=== PATIENT | female | born 1980 | race Caucasian/White ===

== ENCOUNTER 2024-05-21 13:19 | Outpatient (POV) | payer BC, SELFPAY ==
[2024-05-21 14:23] VITALS: BP 116/81; PULSE 77; RESP 18; O2SAT 99; BMI 31.7
--- NOTE | 2024-05-21 17:12 | A.OFFVIS_ITS ---
HPI Data of Consult Patient: new to practice Consult date: 05/21/24 Requesting Physician: Kitty Franks APRN Primary Care Provider: Vincent Ann MD Consult Narrative Reason for consult: Low back pain, bilateral hip pain History of present illness: Ms. Gomez is a 43 year old female who presents today as a new patient. She is a referral from [facility]. Today she rates her pain a 7 out of 10. Patient states she has pain throughout her low back and bilateral hips. Patient states that this is been going on progressively for at least 3 to 4 years on her chronic low back pain and that her hip pain has just been the last 8 to 9 months. Patient denies any specific trauma or injury that initially led to her symptoms. Patient states that she has been to multiple providers for this pain and did end up doing epidurals and lumbar blocks in the past with minimal relief. Patient states that she ended up getting sent for a neurosurgeon consult after the lumbar medial branch block did not provide significant relief. She states that 1 provider thought that she would do well with shaving down some bone in her lumbar spine whereas they ended up sending her for a second opinion with a different neurosurgeon who said that she was not a surgical candidate. Patient states that both of these providers were within the same hospital group and that she really felt like it was in her best interest to not proceed forward with those providers. Patient does state her pain is a constant aching, throbbing sensation with some burning into her hips. She does state the pain interferes with her ability perform activities of daily living such as cooking and cleaning. Patient does state that she saw 1 other provider that did do some hip injections along her bursa's and that that helped for a couple of days. Patient does have a history of lupus and fibromyalgia. She has tried oral medications, heat and ice, topicals along with continued chiropractor therapy with no improvement. Patient has also completed physical therapy in the past with no additional relief. Patient is interested in any help we may be able to provide. Patient has been tried on [place], Percocet, Flexeril in the past with minimal relief. Her Gabriel has been reviewed and is appropriate. CC: Kitty Franks APRN [facility] Disclaimer: The information contained in this section may have been updated after the patient was seen, as this information can be updated by other users. Medical History (Updated 10/14/24 @ 17:17 by Kitty Franks APRN) Encounter for adjustment of gastric lap band Depression Anxiety HLD (hyperlipidemia) Chronic urinary tract infection Iron deficiency HTN (hypertension) Asthma COPD (chronic obstructive pulmonary disease) Migraines Fibromyalgia Surgical History (Updated 05/21/24 @ 14:51 by Melinda Lyles, RN) H/O: hysterectomy H/O dilation and curettage H/O removal of cyst Previous section Family History (Updated 05/21/24 @ 14:50 by Melinda Lyles, RN) Other Breast cancer Cardiovascular disease Hypertension Lung cancer Lupus Osteoporosis Social History (Updated 05/21/24 @ 14:52 by Melinda Lyles, MOON) Smoking Status: Current every day smoker alcohol intake: never substance use type: denies use current occupational status: employed Travel in the last 8 weeks: None Review of Systems Review of Systems Review of systems:: pertinent systems reviewed and negative unless documented below Review of systems (narrative): Review of Systems: General: No recent weight changes, no fever, no sleep disturbances Respiratory: No cough, no shortness of air, no recurring pulmonary infections Cardiovascular/peripheral vascular: No chest pain, no palpitations, no edema, no shortness of breath Gastrointestinal: No new onset incontinence, normal bowel movements reported Genitourinary: No new onset incontinence Musculoskeletal: Low back pain, bilateral hip pain Psychiatric: [Normal mood/affect] Neurological: [Denies weakness in extremities], [denies balance issues] Meds Home Medications and Allergies Home Medications ?Medication ?Instructions ?Recorded ?Confirmed ?Type amitriptyline 10 mg tablet 10 mg PO DAILY 10/26/17 05/21/24 History biotin 1 mg tablet 1 mg PO DAILY 10/26/17 05/21/24 History cyclobenzaprine 5 mg tablet 5 mg PO BID 10/26/17 05/21/24 History docusate sodium 100 mg capsule 100 mg PO QHS 10/26/17 05/21/24 History (Colace) hydrochlorothiazide 12.5 mg capsule 12.5 mg PO QAM 10/26/17 05/21/24 History naproxen 500 mg tablet 500 mg PO Q12H PRN Pain 10/26/17 05/21/24 History prenat.vits,tyrone,sen-[id number] 1 tab PO QHS 10/26/17 05/21/24 History ranitidine HCl 150 mg tablet 150 mg PO BID PRN GERD 10/26/17 05/21/24 History (Zantac) sumatriptan succinate 50 mg tablet 50 mg PO Q2H PRN MIGRAINES 10/26/17 05/21/24 History (Imitrex) New Prescriptions to Start Prescriptions: Allergies Allergy/AdvReac Type Severity Reaction Status Date / Time No Known Allergies Allergy Verified 10/26/17 10:39 Objective Vital signs: Pulse Resp BP Pulse Ox O2 Del Method 77 18 116/81 99 Room Air 05/21/24 14:23 05/21/24 14:23 05/21/24 14:23 05/21/24 14:23 05/21/24 14:23 Narrative: Physical Exam: General: Alert and oriented x3, no acute distress, pleasant and cooperative Lungs: Respirations even and unlabored, symmetrical chest expansion Eyes: PERRL Musculoskeletal: Flexion and extension of lumbar [spine] somewhat guarded secondary to pain, [antalgic gait noted] point tenderness along bilateral SIs with positive bilateral Bharti's, Damián's, Gaenslen's, compression and distraction exam Neurological: Speech clear, no gross sensory deficit Assessment and Plan *Assessment and plan (1) Bilateral sacroiliitis: Status: Acute Category: Medical Code(s): M46.1 - Sacroiliitis, not elsewhere classified (2) Degenerative disc disease, lumbar: Status: Acute Category: Medical Code(s): M51.369 - Other intervertebral disc degeneration, lumbar region without mention of lumbar back pain or lower extremity pain (3) Bilateral hip pain: Status: Acute Category: Medical Code(s): M25.551 - Pain in right hip; M25.552 - Pain in left hip Plan Patient is experiencing significant pain in her low back and bilateral hips with limited range of motion and point tenderness along her bilateral SIs. Patient did also have a positive bilateral Bharti's, Damián's, Gaenslen's, compression and distraction exam. I did discuss with the patient that I do believe she would benefit from bilateral SI injections. Risk and benefits were discussed with the patient and she would like to proceed forward with this plan of care. Patient has tried and failed conservative therapy including continued at home stretching and exercise for longer than 12 weeks along with chiropractor therapy and physical therapy. Patient was also counseled due to her chronic back pain and degenerative disc that she may also benefit from a intrathecal pain pump trial in the future. Risk and benefits and educational handouts were given at today's visit. She would like to proceed forward with this option as well. I will order the patient a psychological evaluation and if she is deemed an appropriate candidate we will proceed forward with the trial at a later date. Patient will be scheduled for bilateral SI injections under fluoroscopy. Patient has been instructed to contact the clinic with any concerns before the next appointment. Dr. Robertson has reviewed this note and agrees with this plan of care. This note was dictated using voice recognition software and make contain errors or omissions. All injections are used with Lidocaine or Bupivacaine and Depo Medrol.
== END 2024-05-21 23:59 | disposition home or self-care (01) ==
LOC: SC.PAIN 13:24
PROVIDERS: PCP Family Medicine; Visit Provider Nurse Practitioner Family
DX: M46.1 Sacroiliitis, not elsewhere classified (principal); M51.369 Other intervertebral disc degeneration, lumbar region without mention of lumbar back pain or lower extremity pain; M25.551 Pain in right hip; M25.552 Pain in left hip; Z73.89 Other problems related to life management difficulty; F17.210 Nicotine dependence, cigarettes, uncomplicated
CPT/HCPCS: 99202; G0463

== ENCOUNTER 2024-06-14 15:01 | Outpatient (POV) | payer BC, SELFPAY ==
--- NOTE | 2024-06-14 15:27 | A.OFFVIS_ITS ---
[facility] Disclaimer: The information contained in this section may have been updated after the patient was seen, as this information can be updated by other users. Medical History (Updated 06/14/24 @ 15:29 by Kitty Franks APRN) Encounter for adjustment of gastric lap band Depression Anxiety HLD (hyperlipidemia) Chronic urinary tract infection Iron deficiency HTN (hypertension) Asthma COPD (chronic obstructive pulmonary disease) Migraines Fibromyalgia Surgical History (Updated 05/21/24 @ 14:51 by Melinda Lyles RN) H/O: hysterectomy H/O dilation and curettage H/O removal of cyst Previous section Family History (Updated 05/21/24 @ 14:50 by Melinda Lyles RN) Other Breast cancer Cardiovascular disease Hypertension Lung cancer Lupus Osteoporosis Social History (Updated 05/21/24 @ 14:52 by Melinda Lyles RN) Smoking Status: Current every day smoker alcohol intake: never substance use type: denies use current occupational status: employed Travel in the last 8 weeks: None PM Subjective & Objective Subjective Subjective:: patient is a pleasant 43-year-old female who presents today for follow-up of psychological evaluation. Today she rates her pain a 8 out of 10. She denies any new trauma or injury. Patient does state that she did review over the pump information and would like to proceed forward with this plan of care. Patient did complete her psychological evaluation. Patient has chronic pain throughout her back as well as her hips. Patient states this has been going on for years and progressively worsening. Patient has tried and failed conservative therapy including continued at home stretching exercise for longer than 12 weeks along with continued chiropractor therapy. Patient has been seen by neurosurgery already. Her Gabriel has been reviewed and is appropriate. Review of Systems: General: No recent weight changes, no fever, no sleep disturbances Respiratory: No cough, no shortness of air, no recurring pulmonary infections Cardiovascular/peripheral vascular: No chest pain, no palpitations, no edema, no shortness of breath Gastrointestinal: No new onset incontinence, normal bowel movements reported Genitourinary: No new onset incontinence Musculoskeletal: Chronic back pain, bilateral hip pain Psychiatric: [Normal mood/affect] Neurological: [Denies weakness in extremities], [denies balance issues] Pain at rest (0-10 scale): 8 Objective Objective:: Physical Exam: General: Alert and oriented x3, no acute distress, pleasant and cooperative Lungs: Respirations even and unlabored, symmetrical chest expansion Eyes: PERRL Musculoskeletal: Flexion and extension of lumbar [spine] somewhat guarded secondary to pain, [antalgic gait noted] Neurological: Speech clear, no gross sensory deficit Has patient had previous pain injection?: No Conservative treatment options previously tried: Home exercise plan Length of treatment: Longer than 12 weeks Meds Home Medications and Allergies Home Medications ?Medication ?Instructions ?Recorded ?Confirmed ?Type amitriptyline 10 mg tablet 10 mg PO DAILY 10/26/17 05/21/24 History biotin 1 mg tablet 1 mg PO DAILY 10/26/17 05/21/24 History cyclobenzaprine 5 mg tablet 5 mg PO BID 10/26/17 05/21/24 History docusate sodium 100 mg capsule 100 mg PO QHS 10/26/17 05/21/24 History (Colace) hydrochlorothiazide 12.5 mg capsule 12.5 mg PO QAM 10/26/17 05/21/24 History naproxen 500 mg tablet 500 mg PO Q12H PRN Pain 10/26/17 05/21/24 History prenat.vits,tyrone,[id number] 1 tab PO QHS 10/26/17 05/21/24 History ranitidine HCl 150 mg tablet 150 mg PO BID PRN GERD 10/26/17 05/21/24 History (Zantac) sumatriptan succinate 50 mg tablet 50 mg PO Q2H PRN MIGRAINES 10/26/17 05/21/24 History (Imitrex) New Prescriptions to Start Prescriptions: Allergies Allergy/AdvReac Type Severity Reaction Status Date / Time No Known Allergies Allergy Verified 10/26/17 10:39 Assessment and Plan *Assessment and plan (1) Degenerative disc disease, lumbar: Status: Acute Category: Medical Code(s): M51.369 - Other intervertebral disc degeneration, lumbar region without mention of lumbar back pain or lower extremity pain (2) Bilateral hip pain: Status: Acute Category: Medical Code(s): M25.551 - Pain in right hip; M25.552 - Pain in left hip (3) Chronic pain syndrome: Status: Acute Category: Medical Code(s): G89.4 - Chronic pain syndrome Plan Patient was reviewed over her psychological evaluation and was deemed an appropriate candidate for the intrathecal pain pump trial. Risk and benefits of this procedure were explained to the patient and she would like to proceed forward with this plan of care. Patient has tried and failed conservative therapy including multiple medications as well as oral opioids, heat and ice, topicals, chiropractor therapy and continued at home stretching and exercise for longer than 12 weeks. Patient will be submitted for a intrathecal pain pump trial under fluoroscopy. If she does have significant improvement we will plan on doing a intrathecal pain pump implant at a later date. Patient has been instructed to contact the clinic with any concerns before the next appointment. Dr. Robertson has reviewed this note and agrees with this plan of care. This note was dictated using voice recognition software and make contain errors or omissions. All injections are used with Lidocaine or Bupivacaine and Depo Medrol.
[2024-06-14 15:38] VITALS: BP 138/85; PULSE 86; RESP 18; O2SAT 100; BMI 33.6
== END 2024-06-14 23:59 | disposition home or self-care (01) ==
LOC: SC.PAIN 15:01
PROVIDERS: PCP Family Medicine; Visit Provider Nurse Practitioner Family
DX: M51.369 Other intervertebral disc degeneration, lumbar region without mention of lumbar back pain or lower extremity pain (principal); M25.551 Pain in right hip; M25.552 Pain in left hip; G89.4 Chronic pain syndrome; F17.210 Nicotine dependence, cigarettes, uncomplicated
CPT/HCPCS: 99212; G0463

== ENCOUNTER 2024-06-26 14:22 | Day surgery (SDC) | payer BC, SELFPAY ==
--- OUTSIDE RECORDS SUMMARY | 2024-06-26 14:24 | XMS_ITS | Data Portability ---
Author Organization [place] - [facility], Main Office Address [address] [address] Care Team Providers Care Digital Operations Analyst Name Role Phone BRIDGET ROUSE Primary Care Provider Assessment Encounter Date Assessment Date Assessment LastModified by Organization Details LastModified Time 11/10/2022 11/10/2022 This visit was completed via video. Patient has provided consent per state regulations. Instructed to call for any questions or concerns. Seek immediate care if with worsening or persistent symptoms. [email or web address] Not available 11/10/2022 21:12:39 12/03/2022 12/03/2022 This visit was completed via video. All issues as below were discussed and addressed but no physical exam/vitals were performed. Patient has provided consent per state regulations. Patient has also verbally consented to this visit and understand the limitations of [facility]. Medication instructions, precautions, and side effects were reviewed in detail with patient/guardian today Instructed to seek immediate care if with worsening or persistent symptoms Instructed to go directly to ED if develops chest pain, sob, diaphoresis, palpitations, uncontrollable KUHN, mental status changes, dizziness, Sz activity, confusion, gait instability, ext weakness, slurred speech or any other concerning signs or symptoms. Not available 12/03/2022 09:28:39 Plan of Treatment Reminders Order Date Submit Date Provider Last Modified By Organization Details Last Modified Time Details Appointments None recorded. Lab Hepatitis C IgG Ab, qual, serum 2022 023 LETART [facility] ([place]), [address] [facility], [place], [address], 17:05:30 HIV 1 + 2, meaningful use set 2022 023 NATASHA [facility] ([place]), [address] [facility], [place], [address], 3 17:05:29 unlisted lab - biometrics- [id number] 2022 023 [facility] [address] [facility], [place], [address], 3 17:05:26 CMP, serum or plasma 2022 023 NATASHA [facility] ([place]), [address] [facility], [place], [address], 3 17:05:25 CBC w/ auto diff 2022 023 [facility] [address] [facility], [place], [address], 3 17:05:24 TSH, ultra-sensi tive, serum 2022 023 [facility]HA [facility] [address] [facility], [place], [address], 3 17:05:28 HbA1c (hemoglobin A1c), blood 2022 023 [facility]ART [facility] [address] [facility], [place], [address], 3 17:05:27 lipid panel, serum 2022 023 NATASHA [facility] [address] [facility], [place], [address], 3 17:05:25 vitamin B12 + folate, serum or blood 2022 023 NATASHA [facility] ([place]), [address] [facility], [place], [address], 3 17:05:26 thiamine, QN, blood [address] [facility] ([place]), [address] [place], [address], 3 17:05:30 iron, serum 2022 023 [facility]), [address] [place], [address], 3 17:05:30 vitamin E, serum 2022 023 [facility]), [address] [place], [address], 3 17:05:27 copper, serum or plasma 2022 023 [facility]), [address] [place], [address], 3 17:05:31 zinc, serum or plasma 2022 023 [facility]), [address] [place], [address], 3 17:05:31 vitamin A (retinol), serum 2022 023 [facility]), [address] [place], [address], 3 17:05:28 vitamin D, 25-hydroxy, total, serum 2022 023 [facility]), [address] [place], [address], 3 17:05:29 lipid panel, serum [address]), [address] [place], [address], 3 18:16:13 potassium, serum or plasma 2022 023 [place] [address] [facility] [facility], [place], [address], 3 18:16:13 Referral care management referral 2022 023 [facility], [address] [facility] [address], [place], [address], 3 18:11:03 Procedures None recorded. Surgeries None recorded. Imaging None recorded. Medication Orders omeprazole 40 mg capsule,del ayed release 2022 023 [facility], [address] [place] [address], [address], 3 15:01:42 montelukast 10 mg tablet [address] [facility], [address] [place] [address], [address], 3 16:33:11 valacyclovi r 1 gram tablet 2022 023 [facility], [address] [place] [address], [address], 3 14:31:17 hydrochloro thiazide 12.5 mg capsule 2022 023 [facility], [address] [place] [address], [address], 3 15:01:46 cholecalcif jason (vitamin D3) 50 mcg (2,000 unit) tablet 2022 023 [facility], [address] [place] [address], [address], 3 09:32:20 Patient TargetsNo targets recorded. Patient Instructions Encounter Date Encounter Id Patient Instructions Last Modified By Organization Details Last Modified Time 10/06/2022 [id number] Please follow up upon completion of labs You can call us at [phone] for any questions or concerns. You can also send us a message via the [employer] portal for non-urgent issues. Not available 10/06/2022 16:36:06 11/10/2022 [id number] To reach us, you can call us at [phone] or [phone]. You can also send us a message via the portal for non-urgent concerns. If your symptoms get worse, please seek urgent care. Follow-up as scheduled or sooner if needed. [email or web address] Not available 11/10/2022 21:19:00 Reason for Referral Referring Physician: Emily Cody, Family Medicine, Encounter Date: 11/10/2022 Results Created Date Observation Date Name Description Value Unit Range Abnormal Flag Note LastModifiedBy Organization Detail LastModifiedTime 11/30/19 23 11/29/2022 CBC WITH DIFFE RENTI AL/PL ATELE T WBC 5.0 x10e3 /uL 3.4-10 .8 Not Available [facility] ([facility]) [address] [place], [address], 12/04/2022 17:05:24 11/30/19 23 11/29/2022 CBC WITH DIFFE RENTI AL/PL ATELE T RBC 5.07 x10e6 /uL 3.77-5 .28 Not Available [facility] ([facility]) [address] [place], [address], 12/04/2022 17:05:24 11/30/19 23 11/29/2022 CBC WITH DIFFE RENTI AL/PL ATELE T hemoglobin 12.8 g/dL 11.1-1 5.9 Not Available [facility] ([facility]) [address] [place], [address], 12/04/2022 17:05:24 11/30/19 23 11/29/2022 CBC WITH DIFFE RENTI AL/PL ATELE T hematocrit 39.8 % 34.0-4 6.6 Not Available [facility] ([facility]) [address] [place], [address], 12/04/2022 17:05:24 11/30/19 23 11/29/2022 CBC WITH DIFFE RENTI AL/PL ATELE T MCV 79 fL 79-97 Not Available [facility] ([facility]) [address] [facility], [place], [address], 12/04/2022 17:05:24 11/30/19 23 11/29/2022 CBC WITH DIFFE RENTI AL/PL ATELE T MCH 25.2 pg 26.6-3 3.0 below low normal Not Available [facility] ([facility]) [address] [facility], [place], [address], 12/04/2022 17:05:24 11/30/19 23 11/29/2022 CBC WITH DIFFE RENTI AL/PL ATELE T MCHC 32.2 g/dL 31.5-3 5.7 Not Available [facility] ([facility]) [address] [facility], [place], [address], 12/04/2022 17:05:24 11/30/19 23 11/29/2022 CBC WITH DIFFE RENTI AL/PL ATELE T RDW 13.6 % 11.7-1 5.4 Not Available [facility] ([facility]) [address] [facility], [place], [address], 12/04/2022 17:05:24 11/30/19 23 11/29/2022 CBC WITH DIFFE RENTI AL/PL ATELE T platelets 228 x10e3 /uL 150-45 0 Not Available [facility] ([facility]) [address] [facility], [place], [address], 12/04/2022 17:05:24 11/30/19 23 11/29/2022 CBC WITH DIFFE RENTI AL/PL ATELE T neutrophils 65 % not estab. Not Available [facility] ([facility]) [address] [place], [address], 12/04/2022 17:05:24 11/30/19 23 11/29/2022 CBC WITH DIFFE RENTI AL/PL ATELE T lymphs 23 % not estab. Not Available [facility] ([facility]) [address] [facility], [place], [address], 12/04/2022 17:05:24 11/30/19 23 11/29/2022 CBC WITH DIFFE RENTI AL/PL ATELE T monocytes 8 % not estab. Not Available [facility] ([facility]) [address] [facility], [place], [address], 12/04/2022 17:05:24 11/30/19 23 11/29/2022 CBC WITH DIFFE RENTI AL/PL ATELE T eos 3 % not estab. Not Available [facility] ([facility]) [address] [facility], [place], [address], 12/04/2022 17:05:24 11/30/19 23 11/29/2022 CBC WITH DIFFE RENTI AL/PL ATELE T basos 1 % not estab. Not Available [facility] ([facility]) [address] [facility], [place], [address], 12/04/2022 17:05:24 11/30/19 23 11/29/2022 CBC WITH DIFFE RENTI AL/PL ATELE T immature cells COOK NIGHT Not Available [facility] ([facility]) [address] [facility], [place], [address], 12/04/2022 17:05:24 11/30/19 23 11/29/2022 CBC WITH DIFFE RENTI AL/PL ATELE T neutrophils (absolute) 3.2 x10e3 /uL 1.4-7. 0 Not Available [facility] ([facility]) [address] [place], [address], 12/04/2022 17:05:24 11/30/19 23 11/29/2022 CBC WITH DIFFE RENTI AL/PL ATELE T lymphs (absolute) 1.2 x10e3 /uL 0.7-3. 1 Not Available [facility] ([facility]) [address] [facility], [place], [address], 12/04/2022 17:05:24 11/30/19 23 11/29/2022 CBC WITH DIFFE RENTI AL/PL ATELE T monocytes(ab solute) 0.4 x10e3 /uL 0.1-0. 9 Not Available [facility] ([facility]) [address] [facility], [place], [address], 12/04/2022 17:05:24 11/30/1911/29/2022 CBC WITH DIFFE RENTI AL/PL ATELE T eos (absolute) 0.2 x10e3 /uL 0.0-0. 4 Not Available [facility] ([facility]) [address] [facility], [place], [address], 12/04/2022 17:05:24 11/30/19 23 11/29/2022 CBC WITH DIFFE RENTI AL/PL ATELE T baso (absolute) 0.1 x10e3 /uL 0.0-0. 2 Not Available [facility] ([facility]) [address] [facility], [place], [address], 12/04/2022 17:05:24 11/30/19 23 11/29/2022 CBC WITH DIFFE RENTI AL/PL ATELE T immature granulocytes 0 % not estab. Not Available [facility] ([facility]) [address] [place], [address], 12/04/2022 17:05:24 11/30/1911/29/2022 CBC WITH DIFFE RENTI AL/PL ATELE T immature grans (abs) 0.0 x10e3 /uL 0.0-0. 1 Not Available [facility] ([facility]) [address] [place], [address], 12/04/2022 17:05:24 11/30/19 23 11/29/2022 CBC WITH DIFFE RENTI AL/PL ATELE T NRBC COOK NIGHT Not Available [facility] ([facility]) [address] [facility], [place], [address], 12/04/2022 17:05:24 11/30/19 23 11/29/2022 CBC WITH DIFFE RENTI AL/PL ATELE T hematology comments: COOK NIGHT Not Available [facility] ([facility]) [address] [facility], [place], [address], 12/04/2022 17:05:24 11/30/19 23 11/29/2022 COMP. METAB OLIC PANEL (14) calcium 9.8 mg/dL 8.7-10 .2 Not Available [facility] ([facility]) [address] [facility], [place], [address], 12/04/2022 17:05:25 11/30/19 23 11/30/2022 COMP. METAB OLIC PANEL (14) glucose 82 mg/dL 70-99 Not Available [facility] ([facility]) [address] [place], [address], 12/04/2022 17:05:25 11/30/19 23 11/30/2022 COMP. METAB OLIC PANEL (14) BUN 9 mg/dL 6-24 Not Available [facility] ([facility]) [address] [facility], [place], [address], 12/04/2022 17:05:25 11/30/19 23 11/30/2022 COMP. METAB OLIC PANEL (14) creatinine 0.80 mg/dL 0.57-1 .00 Not Available [facility] ([facility]) [address] [place], [address], 12/04/2022 17:05:25 11/30/19 23 11/30/2022 COMP. METAB OLIC PANEL (14) eGFR 95 mL/mi n/1.7 3 >59 Not Available [facility] ([facility]) [address], [place], [address], 12/04/2022 17:05:25 11/30/19 23 11/30/2022 COMP. METAB OLIC PANEL (14) BUN/creatini ne ratio 11 9-23 Not Available [facility] ([facility]) [address], [place], [address], 12/04/2022 17:05:25 11/30/19 23 11/30/2022 COMP. METAB OLIC PANEL (14) sodium 137 mmol/ L 134-14 4 Not Available [facility] ([facility]) [address] [place], [address], 12/04/2022 17:05:25 11/30/19 23 11/30/2022 COMP. METAB OLIC PANEL (14) potassium 3.0 mmol/ L 3.5-5. 2 below low normal Not Available [facility] ([facility]) [address], [place], [address], 12/04/2022 17:05:25 11/30/19 23 11/30/2022 COMP. METAB OLIC PANEL (14) chloride 95 mmol/ L 96-106 below low normal Not Available [facility] ([facility]) [address] [place], [address], 12/04/2022 17:05:25 11/30/19 23 11/30/2022 COMP. METAB OLIC PANEL (14) carbon dioxide, total 28 mmol/ L 20-29 Not Available [facility] ([facility]) [address] [place], [address], 12/04/2022 17:05:25 11/30/19 23 11/30/2022 COMP. METAB OLIC PANEL (14) protein, total 7.3 g/dL 6.0-8. 5 Not Available [facility] ([facility]) [address], [place], [address], 12/04/2022 17:05:25 11/30/19 23 11/30/2022 COMP. METAB OLIC PANEL (14) albumin 4.3 g/dL 3.8-4. 8 Not Available [facility] ([facility]) [address] [facility], [place], [address], 12/04/2022 17:05:25 11/30/19 23 11/30/2022 COMP. METAB OLIC PANEL (14) globulin, total 3.0 g/dL 1.5-4. 5 Not Available [facility] ([facility]) [address] [facility], [place], [address], 12/04/2022 17:05:25 11/30/19 23 11/30/2022 COMP. METAB OLIC PANEL (14) A/G ratio 1.4 1.2-2. 2 Not Available [facility] ([facility]) [address] [facility], [place], [address], 12/04/2022 17:05:25 11/30/19 23 11/30/2022 COMP. METAB OLIC PANEL (14) bilirubin, total 0.4 mg/dL 0.0-1. 2 Not Available [facility] ([facility]) [address] [facility], [place], [address], 12/04/2022 17:05:25 11/30/19 23 11/30/2022 COMP. METAB OLIC PANEL (14) alkaline phosphatase 68 IU/L 44-121 Not Available [facility] ([facility]) [address] [facility], [place], [address], 12/04/2022 17:05:25 11/30/19 23 11/30/2022 COMP. METAB OLIC PANEL (14) AST (SGOT) 17 IU/L 0-40 Not Available [facility] ([facility]) [address] [facility], [place], [address], 12/04/2022 17:05:25 11/30/19 23 11/30/2022 COMP. METAB OLIC PANEL (14) ALT (SGPT) 11 IU/L 0-32 Not Available [facility] ([facility]) [address] [facility], [place], [address], 12/04/2022 17:05:25 11/30/19 23 11/30/2022 LIPID PANEL W/ CHOL/ HDL RATIO cholesterol, total 305 mg/dL 100-19 9 above high normal Not Available [facility] ([facility]) [address] [place], [address], 12/04/2022 17:05:25 11/30/19 23 11/30/2022 LIPID PANEL W/ CHOL/ HDL RATIO triglyceride s 167 mg/dL 0-149 above high normal Not Available [facility] ([facility]) [address] [place], [address], 12/04/2022 17:05:25 11/30/19 23 11/30/2022 LIPID PANEL W/ CHOL/ HDL RATIO HDL cholesterol 48 mg/dL >39 Not Available [facility] ([facility]) [address] [place], [address], 12/04/2022 17:05:25 11/30/19 23 11/30/2022 LIPID PANEL W/ CHOL/ HDL RATIO VLDL cholesterol tyrone 32 mg/dL 5-40 Not Available [facility] ([facility]) [address] [place], [address], 12/04/2022 17:05:25 11/30/19 23 11/30/2022 LIPID PANEL W/ CHOL/ HDL RATIO LDL chol calc ([facility]) 225 mg/dL 0-99 above high normal Not Available [facility] ([facility]) [address] [place], [address], 12/04/2022 17:05:25 11/30/19 23 11/30/2022 LIPID PANEL W/ CHOL/ HDL RATIO comment: Commen t Possi ble Famil ial Hyper elbert stero lemia . FH shoul d be suspe cted when fasti ng LDL elbert stero l is above 189 mg/dL or non-H DL elbert stero l is above 219 mg/dL . A famil y histo ry of high elbert stero l and heart disea se in 1st degre e relat khadijah nila d be colle cted. J Clin Lipid ol 2011; 5:133 -140 Not Available [facility] ([facility]) [address] [facility], [place], [address], 12/04/2022 17:05:25 11/30/19 23 11/30/2022 LIPID PANEL W/ CHOL/ HDL RATIO T. chol/HDL ratio 6.4 ratio 0.0-4. 4 above high normal T. Chol/ HDL Ratio Men Women 1/2 Avg.R isk 3.4 3.3 Avg.R isk 5.0 4.4 2X Avg.R isk 9.6 7.1 3X Avg.R isk 23.4 11.0 Not Available [facility] ([facility]) [address] [facility], [place], [address], 12/04/2022 17:05:25 11/30/19 23 11/29/2022 BIOME TRICS patient height (in) 62.0 in Not Available [facility] ([facility]) [address] [place], [address], 12/04/2022 17:05:26 11/30/19 23 11/29/2022 BIOME TRICS patient weight (lbs) 193.8 lbs Not Available [facility] ([facility]) [address] [place], [address], 12/04/2022 17:05:26 11/30/19 23 11/29/2022 BIOME TRICS body mass index 35.4 Not Available [facility] ([facility]) [address] [place], [address], 12/04/2022 17:05:26 11/30/19 23 11/29/2022 BIOME TRICS waist circumferenc e (in) 40.0 in Not Available [facility] ([facility]) [address] [place], [address], 12/04/2022 17:05:26 11/30/19 23 11/29/2022 BIOME TRICS systolic blood pressure 123 mmHg Not Available [facility] ([facility]) [address] [place], [address], 12/04/2022 17:05:26 11/30/19 23 11/29/2022 BIOME TRICS diastolic blood pressure 78 mmHg Not Available [facility] ([facility]) [address] [place], [address], 12/04/2022 17:05:26 11/30/19 23 11/30/2022 VITAM IN B12 AND FOLAT E vitamin B12 618 pg/mL 232-12 45 Not Available [facility] ([facility]) [address] [place], [address], 12/04/2022 17:05:26 11/30/1911/30/2022 VITAM IN B12 AND FOLAT E folate (folic acid), serum 5.5 NG/mL >3.0 A serum folat e felix ntrat ion of less than 3.1 ng/mL is consi dered to repre sent clini tyrone defic iency . Not Available [facility] ([facility]) [address] [place], [address], 12/04/2022 17:05:26 11/30/1912/04/2022 VITAM IN E vitamin E(alpha tocopherol) 13.9 mg/L 7.0-25 .1 Not Available [facility] ([facility]) [address] [place], [address], 12/04/2022 17:05:27 11/30/19 23 12/04/2022 VITAM IN E vitamin E(gamma tocopherol) 3.4 mg/L 0.5-5. 5 Refer ence inter vals for alpha and gamma -toco phero l deter mined from [facility]ion Exami natio n Surve y, 2004- 2005. Indiv idual s with alpha -toco phero l level s less than 5.0 mg/L are consi dered vitam in E defic ient. Not Available [facility] ([facility]) [address] [facility], [place], [address], 12/04/2022 17:05:27 11/30/1911/30/2022 HEMOG LOBIN A1C hemoglobin A1C 5.2 % 4.8-5. 6 Predi abete s: 5.7 - 6.4 Diabe lurdes: >6.4 Glyce stephanie contr ol for adult s with diabe lurdes: <7.0 Not Available [facility] ([facility]) [address] [facility], [place], [address], 12/04/2022 17:05:27 11/30/1911/30/2022 TSH TSH 2.400 uIU/m L 0.450- 4.500 Not Available [facility] ([facility]) [address] [place], [address], 12/04/2022 17:05:28 11/30/1912/04/2022 VITAM IN A, SERUM vitamin A 39.1 ug/dL 20.1-6 2.0 Refer ence inter vals for vitam in A deter mined from [facility] inter nal studi es. Indiv idual s with vitam in A less than 20 ug/dL are consi dered vitam in A defic ient and those with serum felix ntrat ions less than 10 ug/dL are consi dered sever jonna defic ient. This test was devel oped and its perfo rmanc e hillary cteri stics deter mined by [facility]. It has not been clear ed or appro lane by the Food and Drug Admin istra tion. Not Available [facility] ([facility]) [address] [facility], [place], [address], 12/04/2022 17:05:28 11/30/1911/30/2022 VITAM IN D, 25-HY DROXY vitamin D, 25-hydroxy 12.1 NG/mL 30.0-1 00.0 below low normal Vitam in D defic iency has been defin ed by the Insti tute of Medic ine and an Endoc rine Socie ty pract ice guide line as a level of serum 25-OH vitam in D less than 20 ng/mL (1,2) . The Endoc rine Socie ty went on to furth er defin e vitam in D insuf ficie ncy as a level betwe en 21 and 29 ng/mL (2). 1. IOM (Inst itute of Medic ine). 2010. Tracie ry refer ence anthony es for calci um and D. Armando hernadez [place]: [facility] Press . 2. Param melgar MF, Rosamaria bass [place], Courtney off-F errar i KUHN, et al. Evalu ation , treat ment, and preve ntion of vitam in D defic iency : an Endoc rine Socie ty clini tyrone pract ice guide line. JCEM. 2010; 96(7) :1911 -30. Not Available [facility] ([facility]) [address] [facility], [place], [address], 12/04/2022 17:05:29 11/30/19 23 11/30/2022 HIV AB/P2 4 AG WITH REFLE X HIV Ab/P24 Ag screen Non Reacti ve non reacti ve HIV Negat lona HIV-1 /HIV- 2 antib odies and HIV-1 p24 antig en were NOT detec venkat. There is no labor atory evide nce of HIV infec tion. Not Available [facility] ([facility]) [address] [facility], [place], [address], 12/04/2022 17:05:29 11/30/1912/02/2022 VITAM IN B1 (THIA MINE) , BLOOD vit. B1, whole blood 106.2 nmol/ L 66.5-2 00.0 Not Available [facility] ([facility]) [address] [facility], [place], [address], 12/04/2022 17:05:29 11/30/19 23 11/30/2022 HCV ANTIB ESVIN hep C virus Ab Non Reacti ve non reacti ve HCV antib esvin alone does not diffe renti ate betwe en previ ously resol lane infec tion and activ e infec tion. Equiv ocal and React lona HCV antib esvin resul ts shoul d be follo wed up with an HCV RNA test to suppo rt the diagn osis of activ e HCV infec tion. Not Available [facility] ([facility]) [address] [facility], [place], [address], 12/04/2022 17:05:30 11/30/19 23 11/30/2022 IRON iron 61 ug/dL 27-159 Not Available [facility] ([facility]) [address] [place], [address], 12/04/2022 17:05:30 11/30/19 23 12/01/2022 COPPE R, SERUM OR PLASM A copper, serum or plasma 139 ug/dL 80-158 Detec tion Limit = 5 Not Available [facility] ([facility]) [address] [place], [address], 12/04/2022 17:05:31 11/30/19 23 12/01/2022 ZINC, PLASM A OR SERUM zinc, plasma or serum 124 ug/dL 44-115 above high normal Detec tion Limit = 5 Not Available [facility] ([facility]) [address] [place], [address], 12/04/2022 17:05:31 06/04/20 24 06/04/2024 histo rical labs cholesterol 225.0 Not Available Not Av ailable 06/14/2024 13:17:48 06/04/2006/04/2024 histo rical labs cholesterol. in HDL 38.0 Not Available Not Available 02/2024 13:17:48 06/04/20 24 06/04/2024 histo rical labs cholesterol. in LDL 152.0 Not Available Not Available 02/2024 13:17:48 06/04/20 24 06/04/2024 histo rical labs glucose 81.0 Not Available Not Availa ble 06/14/2024 13:17:48 Result Notes None recorded. Problems Name Problem SNOMED Code Status Onset Date Resolution Date Notes Provider Name and Address Organization Details Recorded Time History of SARS-CoV-2 [id number] Active 2022 x 2. Last time was February 2022. Jay rodriguez MD [address], [place], [address], [place] [facility] 3 16:28:46 Migraine [id number] Active 2022 Emily Cody MD [address], [place], [address], [place] [facility] 3 18:37:31 Mixed anxiety and depressive disorder [id number] Active 2022 Jay rodriguez MD [address], [place], [address] 4, [place] [facility] 3 09:27:00 Problem Notes None recorded. Procedures Surgical History Date Name Laterality Status Provider Name and Address Organization Details Recorded Time 3 Date of Last Pap Smear completed Elsa Jamie [place] [facility] 10/06/2022 13:51:48 2 completed Elsa Jamie [place] [facility] 10/06/2022 13:52:34 2 Date of Last Mammogram completed Elsa Jamie [place] [facility] 10/06/2022 13:52:43 8 Orthopedic Surgery completed Elsa Jamie [place] [facility] 10/06/2022 13:53:30 5 Caesarean Section completed Elsa Jamie [place] [facility] 10/06/2022 13:53:29 bariatric operative procedure completed Jay Sevilla MD [address], [place], [address], [place] [facility] 12/03/2022 09:28:10 Imaging Results None recorded. Procedure Notes None recorded. Medical Equipment None Reported. Allergies No known drug allergies Medications Name Sig Start Date Stop Date Status Note LastModified by Organization Details LastModified Time valacyclo vir 1 gram tablet take 2 tablets twice a day for 1 day with an outbreak active Not Available Not Available No t Available hydrocodo ne 5 mg-acetam inophen 325 mg tablet TAKE ONE (1) TABLET EVERY 6-8 HOURS BY ORAL ROUTE NEEDED FOR THREE (3) DAYS. active Not Available Not Available No t Available prednison e 20 mg tablet 10/06 completed Not Available Not Available Not Available rizatript an 10 mg tablet TAKE ONE (1) TABLET BY MOUTH ONCE. MAY REPEAT DOSE EVERY TWO (2) HOURS UP TO 30MG IN 24 HOURS. 11/10 completed Not Available Not Available Not Available Ferrex 150 mg iron capsule TAKE ONE (1) CAPSULE TWICE A DAY BY ORAL ROUTE FOR 90 DAYS. 11/10 completed Not Available Not Available Not Available sumatript an 50 mg tablet TAKE ONE (1) TABLET BY MOUTH EVERY TWO (2) HOURS NEEDED BEGINNIN G AT ONSET OF MIGRAINE (DO NOT EXCEED FOUR (4) TABLETS/ DAY) active Not Available Not Available No t Available peg-elect rolyte solution 420 gram oral solution USE DIRECTED 10/06 completed Not Available Not Available Not Available omeprazol e 40 mg capsule,d elayed release Take 1 capsule every day by oral route. active Not Available Not Available No t Available amitripty line 50 mg tablet TAKE ONE (1) TABLET EVERY DAY BY ORAL ROUTE AT BEDTIME active Not Available Not Available No t Available butalbita l-acetami nophen-ca ffeine 50 mg-325 mg-40 mg tablet TAKE ONE (1) TABLET BY MOUTH EVERY EIGHT (8) HOURS NEEDED active Not Available Not Available No t Available ketorolac 10 mg tablet TAKE ONE TABLET BY MOUTH EVERY 8 HOURS NEEDED FOR SEVERE MIGRAINE 11/10 completed Not Available Not Available Not Available potassium chloride ER 20 mEq tablet,ex tended release(p art/cryst ) TAKE ONE (1) TABLET(S ) EVERY DAY BY ORAL ROUTE FOR 30 DAYS. 10/06 completed Not Available Not Available Not Available benzonata te 100 mg capsule 10/06 completed Not Available Not Available Not Available hydrochlo rothiazid e 12.5 mg capsule Take 1 capsule every day by oral route. active Not Available Not Available No t Available monteluka st 10 mg tablet Take 1 tablet every day by oral route. active Not Available Not Available No t Available hydroxyzi ne HCl 25 mg tablet TAKE ONE (1) TABLET TWICE A DAY BY ORAL ROUTE DIRECTED active Not Available Not Available No t Available ibuprofen 600 mg tablet 10/06 completed Not Available Not Available Not Available methylpre dnisolone 4 mg tablets in a dose pack TAKE DIRECTED FOR 6 DAYS 10/06 completed Not Available Not Available Not Available naproxen 500 mg tablet TAKE ONE (1) TABLET BY MOUTH TWICE DAILY NEEDED active Not Available Not Available No t Available diazepam 5 mg tablet TAKE 1 TABLET BY MOUTH NEEDED PRIOR TO INFUSION . MAY TAKE THE SECOND DOSE FOR CONTINUE D ANXIETY FOR ONE DAY. 10/06 completed Not Available Not Available Not Available amoxicill in 875 mg-potass ium clavulana te 125 mg tablet active Not Available Not Available Not Available cyclobenz aprine 5 mg tablet TAKE ONE (1) TABLET TWICE A DAY BY ORAL ROUTE DIRECTED active Not Available Not Available No t Available escitalop lenore 5 mg tablet TAKE ONE (1) TABLET EVERY DAY BY ORAL ROUTE DIRECTED active Not Available Not Available No t Available nitrofura ntoin monohydra te/macroc rystals 100 mg capsule TAKE 1 CAPSULE BY MOUTH EVERY DAY NEEDED 10/06 completed Not Available Not Available Not Available levocetir izine 5 mg tablet TAKE ONE (1) TABLET EVERY DAY BY ORAL ROUTE DIRECTED active Not Available Not Available No t Available cholecalc iferol (vitamin D3) 50 mcg (2,000 unit) tablet TAKE ONE (1) TABLET EVERY DAY BY ORAL ROUTE. active Not Available Not Available No t Available Linzess 145 mcg capsule 11/10 completed Not Available Not Available Not Available marijuana (cannabis ) active treating KUHN's Not Available Not Available Not Available Emgality Pen 120 mg/mL subcutane ous pen injector INJECT ONE (1) ML EVERY MONTH BY SUBCUTAN EOUS ROUTE. active Not Available Not Available No t Available [facility] 75 mg disintegr ating tablet TAKE 1 TABLET ON OR UNDER THE TONGUE ONCE A DAY NEEDED. active Not Available Not Available No t Available Vitals Date Recorded Body height Body mass index (BMI) Body weight Provider Name and Address Organization Details Last Updated DateTime 10/06/2022 162.56 cm 30.9 kg/m2 83606.63 g Elsa Jamie [place] - [facility] 10/06/2022 13:35:52 Date Recorded Body height Body mass index (BMI) Body weight Systolic blood pressure Diastolic blood pressure Provider Name and Address Organization Details Last Updated DateTime 12/03/2022 157.48 cm 35.4 kg/m2 42572.2 g 123 mm[Hg] 78 mm[Hg] Elsa Jamie [place] - [facility] 09:15:09 Date Recorded Body weight Body height Systolic blood pressure Diastolic blood pressure Provider Name and Address Organization Details Last Updated DateTime 06/04/2024 92703.48 g 160.02 cm 100 mm[Hg] 72 mm[Hg] Not Available [facility] ([place] - [employer] 06/14/2024 13:17:48 Social History Question Answer Notes LastModified by Organizat ion Details LastModified Time Tobacco Smoking Status Former Smoker Elsa [place]ang [place], [place] - [facility] 10/06/2022 13:53:23 What Is Your Level Of Alcohol Consumption? None Information not available 10/06/2022 What Is Your Level Of Caffeine Consumption? Moderate Information not available 10/06/2022 Do You Or Have You Ever Used E-cigarettes Or Vape? Never Used Electronic Cigarettes Information not available 10/06/2022 What Is The Highest Grade Or Level Of School You Have Completed Or The Highest Degree You Have Received? 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 6-10yearssince lastcigarette 2014 Information not available 12/03/2022 Activity Level Moderate Informati on not available 10/06/2022 Caffeine Consumption Tea/Soda Information not available 10/06/2022 Caffeine Frequency Daily Information not available 10/06/2022 Cigar Smoking No Informatio n not available 10/06/2022 Diet Regular Information n ot available 10/06/2022 Do You Currently, Or Have You Used Recreational Drugs? Yes Information not available 10/06/2022 Does Anyone Insult Or Talk Down To You? Rarely Information not available 10/06/2022 Does Anyone Physically Hurt You At Home? Never Information not available 10/06/2022 General Stress Level High Information not available 10/06/2022 Lives With And Son Information not available 10/06/2022 [place]idence [place] Information not available 10/06/2022 Recently Moved From Where Information not available 10/06/2022 Sleep Habits I Don't Feel Like I Get Enough Information not available 10/06/2022 Have You Ever Served In The ?? No Information not available 10/06/2022 What Was The Date Of Your Most Recent Tobacco Screening? 10/06/2022 Information not available 12/03/2022 What Is Your Current Pack Years? 10-19packyears Information not available 12/03/2022 What Is Your Relationship Status? Information not available 10/06/2022 Do You Or Have You Ever Used Smokeless Tobacco? Never Used Smokeless Tobacco Information not available 10/06/2022 How Much Tobacco Do You Smoke? No Information not available 10/06/2022 How Many Years Have You Smoked Tobacco? 25 1/2 To 1ppd Information not available 10/06/2022 Do You Or Have You Ever Used Any Other Forms Of Tobacco Or Nicotine? No Information not available 10/06/2022 Sex: Unknown Functional Status None recorded. Mental Status None recorded. Family History Relationship Description Onset Age of this Age Resolved Age Notes LastModified by Organization Details LastModified Time Maternal Aunt Malignant tumor of breast Not available 08/2022 13:53:04 Mother Chronic obstructive pulmonary disease Not available 08/2022 13:53:04 Mother Asthma Not availabl e 10/06/2022 13:53:04 Mother Heart disease Not available 08/2022 13:53:04 Unspecified Relation Arthritis Not available 08/2022 13:53:04 Unspecified Relation Migraine Not available 08/2022 13:53:04 Sister Anxiety disorder Not available 08/2022 13:53:04 Sister Headache Not availa ble 10/06/2022 13:53:04 Sister Anemia Not availabl e 10/06/2022 13:53:04 Sister Depressive disorder Not available 08/2022 13:53:04 Sister Migraine Not availa ble 10/06/2022 13:53:04 Sister Obese Not availabl e 10/06/2022 13:53:04 Medical History Condition Response Anxiety Y UTI Chronic Y Anemia, iron deficient Y COPD Y Depression Y Asthma Y Anemia, other Y Hypertension (High Blood Pressure) Y Migraine Headaches Y Fibromyalgia Y Allergic Rhinitis (seasonal allergies) Y GERD (reflux) Y Gynecological History Statement/Question Response Abnormal Pap N Date of Last Mammogram 11/06/2021 Date of LMP 10/11/2022 Date of Last Pap Smear 08/08/2022 Current Control Method None 11/06/2021 LMP Approximate Obstetrics History GPAL:G 0 P 0 0 0 0 Immunizations Vaccine Type Date Status Provider Name and Address Organization Details Recorded Time Tdap 04/08/2022 completed Elsa Jamie null, [place] - [facility] 10/06/2022 13:38:03 Past Encounters Encounter ID Performer Location Encounter Start Date Encounter Closed Date Diagnosis/Indication Diagnosis SNOMED-CT Code Diagnosis ICD10 Code [id number] Jay Sevilla MD [facility] [address] [facility] [address] [place] [address] 10/06/2022 13:25:59 10/06/2022 17:21:35 Stomatitis 53237368 K12.1 Gastro-eso phageal reflux disease with esophagitis 867400809 K21.00 Essential hypertension 10909437 I10 Chronic ob structive pulmonary disease 95190597 J44.9 History of bariatric surgical procedure 688595533 Z98.84 Adult heal th examination 377222539 Z00.00 [id number] Jay Sevilla MD [employer] - [facility] [address], [place] [address] [place] [address] 4 12/03/2022 08:59:04 12/03/2022 10:36:08 Follow-up visit 296933481 Z09 Hyperlipidemia 17917679 E78.5 Hypokalemia 96429202 E87 .6 Vitamin D below reference range 317220290 E55.9 Migraine 42592789 G43.90 9 [id number] Emily Cody MD [employer] [facility] [place] [address], [place] [address] [place] [address] 4 11/10/2022 18:37:04 11/10/2022 19:42:59 Migraine 91698925 G43.909 Health Concerns Section Related Observation LastModified by Organization Detai ls LastModified Time None Recorded Concern Status LastModified by Organization Details LastModified Time None Recorded Advance Directives Directive None Recorded Payers Encounter Date Sequence Insurance Name Policy Number Policy Mead Covered Member ID Mead Member ID Guarantor Name 10/06/2022 1 [employer] [id number] [id number] 11/10/2022 1 [place] [id number] 3 [facility] [id number] 25 [facility] 12/03/2022 1 [employer] [id number] 3 [facility] [id number] 25 [facility] Notes Date Note Type Note Provider Name and Address Organization Details Recorded Time 10/06/2022 text/html VIDEO CONSULTATI ON Patient name, and emergency contact verified.Patient Location - [facility] Location - [facility] - [facility] [employer] limitations discussed with patient. Patient verbally consented to consultation and treatment with telehealth today. Pt present to establish care and request medication refills. Interested in HMP, address verified.CORTEZ,RN Nursing notes reviewed. Patient portal -[facility] document reviewed. 41 y/i new pt is here for AP and medication management. She sees her PCP for her current med conditions but is interested in getting some of her meds through the pharmacy program. Saw PCP last in June 2022. Depression/anxiety/fib romyalgia - managed by PCP and well controlled on current regimen.Migraine KUHN's - Well controlled on current regimen.Esophagitis - Had EGD 2019. Dx'd w/ esophagitis. Still need PPI BID 4-5 x weekHx of Lap-band surgery - Jay Sevilla MD [address], [place], [address], [place] - [facility] 10/06/2022 16:36:14 11/10/2022 text/html The visit is con ducted via a video consultation.Telemedic ine limitations discussed with patient. Patient gave a verbal consent to consultation and treatment via telemedicine. written consent on file.Patient name, , address and emergency contact information verified.Location of the patient during the visit verified to be in [facility] location- [place] PCP Bridget Rouse APRN cc: referral to medical marijuana clinic Bridget saw her pcp today for migraine attack, she was advised medical marijuana for migraine but pcp cannot prescribe it or refer since pcp works in a federally funded clinic She considers this as her last resort to manage her migraine.She saw neuro in the past.Had migraines since she was young.She wants to avoid narcotics.Only takes butalbital as needed. Also takes nurtec but not really helping.She has been on emgality x few yrs which helps control her migraine but always has issue with insurance with it. On emgality, she only gets 3-4 migraines a month which is really good for her.She has been off the emgality for the past 6 weeks as insurance won't approve it and since then has had 17 migraine attacks.Currently she has migraine, saw pcp today, just has some minor headache which is her typical migraine. Has a ff up appt with Dr Sevilla next week Emily Cody MD [address], [place], [address], [place] - [facility] 11/10/2022 21:26:46 12/03/2022 text/html VIDEO CONSULTATI ON Patient name, and emergency contact verified.Patient Location -[facility]ouse APRNTelemedicine limitations discussed with patient. Patient verbally consented to consultation and treatment with telehealth today. Pt presents for lab review. No other concerns at this time. Pt wanted to advise she started medicinal cannabis early November. CORTEZ,RN Jay Sevilla MD [address], [facility] [place], [address], [place] - [facility] 12/03/2022 09:56:11 OBGyn Episode No OBEpisode recorded.
--- OUTSIDE RECORDS SUMMARY | 2024-06-26 14:25 | XMS_ITS | Data Portability ---
Author Organization [place] - [facility] Address [address] [place] [address] Care Team Providers Care Solid Waste Technician Name Role Phone BRIDGET HARRISON Primary Care Provider BERNARD VOGT Primary Care Provider Assessment No assessment recorded. Plan of Treatment Reminders Order Date Submit Date Provider Last Modified By Organization Details Last Modified Time Details Appointments FOLLOW UP 30 2024 10:00A Ambrose WAITE NP Not available Not available Not available Lab CBC w/ auto diff 2023 024 [facility] (Registration ), [place], [address], 12/30/2023 13:13:24 iron + TIBC + ferritin, serum 2023 024 [facility] (Registration ), [place], [address], 12/30/2023 11:59:38 iron saturatio n, serum 2023 024 [facility] (Registration ), [place], [address], 12/30/2023 11:59:38 ADELA (antinucl ear antibodie s) screen, serum 2023 024 [facility] (Registration ), [place], [address], 12/30/2023 11:59:38 ESR (erythroc yte sedimenta tion rate), blood 2023 024 [facility] (Registration ), [address], [place], [address], 12/30/2023 14:24:21 C-reactiv e protein, quantitat lona, serum or plasma 2023 024 [facility] (Registration ), [address], [place], [address], 12/30/2023 14:36:14 vitamin B12 + folate, serum or blood 2023 024 [facility] (Registration ), [address], [place], [address], 12/31/2023 08:18:33 CBC w/ auto diff 2023 024 [facility] (Registration ), [address], [place], [address], 04/03/2024 04:17:23 iron + TIBC + ferritin, serum 2023 024 [facility] (Registration ), [address], [place], [address], 03/31/2024 16:17:41 transferr in receptor, soluble, serum 2023 024 [facility] (Registration ), [place], [address], 04/03/2024 04:17:24 iron saturatio n, serum 2023 024 [facility] (Registration ), [place], [address], 03/27/2024 14:09:01 CBC w/ auto diff 2023 024 [facility] (Registration ), [address] [place] [address] , [place], [address], 06/22/2024 13:46:11 iron + TIBC + ferritin, serum [address] (Registration ), [address] [place] [address] , [place], [address], 06/25/2024 09:04:23 iron saturatio n, serum [address] (Registration ), [address] [place] [address] [place], [address], 06/25/2024 09:04:10 Referral None recorded. Procedures None recorded. Surgeries None recorded. Imaging XR, pelvis 2023 024 [facility], [address] [place] [address] [place], [address], 12/26/2023 07:49:51 XR, lumbar spine 2023 024 [facility], [address] [place] [address] [place], [address], 12/26/2023 07:49:51 Medication Orders Kenalog 10 mg/mL suspensio n for injection 2023 024 [email or web address] [facility], [address] [place] [address], [place], [address], 03/27/2024 13:52:05 bupivacai ne HCl 0.5 % (5 mg/mL) injection solution 2023 024 [id number] [facility], [address] [place] [address], [place], [address], 03/27/2024 13:50:21 Feraheme 510 mg/17 mL (30 mg/mL) intraveno us solution 2023 024 [email or web address] [facility], [address] [place] [address], [place], [address], 04/25/2024 16:37:32 Patient TargetsNo targets recorded. Patient InstructionsNo instructions recorded. Reason for Referral None Reported. Results Created Date Observation Date Name Description Value Unit Range Abnormal Flag Note LastModifiedBy Organization Detail LastModifiedTime 12/30/1912/30/2023 CBC W/AUT O DIFFE RENTI AL note SEE NOTE Order ing Provi yemi: Ria lee APRN Not Available [address] , [place], [address], 12/30/2023 13:13:23 12/30/19 24 12/30/2023 CBC W/AUT O DIFFE RENTI AL white blood cell 6.4 10e3/ uL 4.5-13 .0 normal Not Available [address] Angela Jones, [place], [address], 12/30/2023 13:13:23 12/30/19 24 12/30/2023 CBC W/AUT O DIFFE RENTI AL red blood cell 4.56 10e6/ uL 3.80-5 .10 normal Not Available [place] [address], [place], [address], 12/30/2023 13:13:23 12/30/19 24 12/30/2023 CBC W/AUT O DIFFE RENTI AL hemoglobin 12.4 g/dL 11.5-1 5.3 normal Not Available [address] , [place], [address], 12/30/2023 13:13:23 12/30/19 24 12/30/2023 CBC W/AUT O DIFFE RENTI AL hematocrit 37.1 % 34.0-4 6.0 normal Not Available [address] Angela Jones, [place], [address], 12/30/2023 13:13:23 12/30/19 24 12/30/2023 CBC W/AUT O DIFFE RENTI AL mean cell volume 81 fL 78.0-9 8.0 normal Not Available [address] Angela Jones, [place], [address], 12/30/2023 13:13:23 12/30/19 24 12/30/2023 CBC W/AUT O DIFFE RENTI AL mean cell HGB 27.2 pg 25.0-3 5.0 normal Not Available [place] [address], [place], [address], 12/30/2023 13:13:23 12/30/19 24 12/30/2023 CBC W/AUT O DIFFE RENTI AL mean cell HGB concentratio n 33.4 g/dL 31.0-3 6.0 normal Not Available [place] [address], [place], [address], 12/30/2023 13:13:23 12/30/19 24 12/30/2023 CBC W/AUT O DIFFE RENTI AL red cell distribution width 13.1 % 11.0-1 5.0 normal Not Available [place] [address], [place], [address], 12/30/2023 13:13:23 12/30/19 24 12/30/2023 CBC W/AUT O DIFFE RENTI AL platelet count 236 10e3/ uL 150-40 0 normal Not Available [address] Angela Jones, [place], [address], 12/30/2023 13:13:23 12/30/19 24 12/30/2023 CBC W/AUT O DIFFE RENTI AL immature granulocyte % 0 0-1 normal Not Available [address] , [place], [address], 12/30/2023 13:13:23 12/30/19 24 12/30/2023 CBC W/AUT O DIFFE RENTI AL neutrophil % 68 % 35-75 normal Not Available [address] , [place], [address], 12/30/2023 13:13:23 12/30/19 24 12/30/2023 CBC W/AUT O DIFFE RENTI AL lymphocyte % 24 % 10-50 normal Not Available [address] , [place], [address], 12/30/2023 13:13:23 12/30/19 24 12/30/2023 CBC W/AUT O DIFFE RENTI AL monocyte % 6 % 0-15 normal Not Available [address] , [place], [address], 12/30/2023 13:13:23 12/30/19 24 12/30/2023 CBC W/AUT O DIFFE RENTI AL eosinophil % 2 % 0-5 normal Not Available [address] , [place], [address], 12/30/2023 13:13:23 12/30/19 24 12/30/2023 CBC W/AUT O DIFFE RENTI AL basophil % 1 % 0-5 normal Not Available [address] Angela Jones, [place], [address], 12/30/2023 13:13:23 12/30/19 24 12/30/2023 CBC W/AUT O DIFFE RENTI AL immature granulocyte # 0.02 x1000 /uL 0-0.05 normal Not Available [address] Angela Jones, [place], [address], 12/30/2023 13:13:23 12/30/19 24 12/30/2023 CBC W/AUT O DIFFE RENTI AL neutrophil # 4.37 x1000 /uL 1.50-8 .00 normal Not Available [address] Angela Jones, [place], [address], 12/30/2023 13:13:23 12/30/19 24 12/30/2023 CBC W/AUT O DIFFE RENTI AL lymphocyte # 1.54 x1000 /uL 1.20-5 .20 normal Not Available [address] , [place], [address], 12/30/2023 13:13:12/30/19 24 12/30/2023 CBC W/AUT O DIFFE RENTI AL monocyte # 0.35 x1000 /uL 0.40-0 .90 low Not Available [address] Angela Jones, [place], [address], 12/30/2023 13:13:23 12/30/19 24 12/30/2023 CBC W/AUT O DIFFE RENTI AL eosinophil # 0.10 x1000 /uL 0.00-0 .50 normal Not Available [address] Angela Jones, [place], [address], 12/30/2023 13:13:23 12/30/19 24 12/30/2023 CBC W/AUT O DIFFE RENTI AL basophil # 0.04 x1000 /uL 0.00-0 .30 normal Not Available [address] Angela Jones, [place], [address], 12/30/2023 13:13:23 12/30/19 24 12/30/2023 CBC W/AUT O DIFFE RENTI AL NRBC automated 0.0 /100_ WBC Not Available [address] , [place], [address], 12/30/2023 13:13:23 12/30/19 24 12/30/2023 CBC W/AUT O DIFFE RENTI AL performing lab SEE NOTE ML - [facility] [address] [place] [address] Not Available [address] , [place], [address], 12/30/2023 13:13:23 12/30/19 24 12/30/2023 FE W/TOT AL IRON RAIN NG CAP note SEE NOTE Order ing Provi yemi: Tiffa angelica Garciar ell UX VISUAL DESIGNER Not Available [address] , [place], [address], 12/30/2023 14:20:52 12/30/19 24 12/30/2023 FE W/TOT AL IRON RAIN NG CAP iron 72 ug/dL 50-170 normal Not Available [address] Angela Jones, [place], [address], 12/30/2023 14:20:52 12/30/19 24 12/30/2023 FE W/TOT AL IRON RAIN NG CAP total iron binding capacity 245 ug/dL 260-44 5 low Not Available [address] , [place], [address], 12/30/2023 14:20:52 12/30/19 24 12/30/2023 FE W/TOT AL IRON RAIN NG CAP iron saturation 29 % 20-50 normal Not Available [address] Angela Jones, [place], [address], 12/30/2023 14:20:52 12/30/19 24 12/30/2023 FE W/TOT AL IRON RAIN NG CAP performing lab SEE NOTE ML - [facility] [address] [place] [address] Not Available [address] Angela Jones, [place], [address], 12/30/2023 14:20:52 12/30/19 24 12/30/2023 SEDIM ENTAT ION RATE note SEE NOTE Order ing Provi yemi: Ria lee UX VISUAL DESIGNER Not Available [address] , [place], [address], 12/30/2023 14:24:21 12/30/19 24 12/30/2023 SEDIM ENTAT ION RATE sedimentatio n rate 23 mm/HR 0-20 high Not Available [address] , [place], [address], 12/30/2023 14:24:21 12/30/19 24 12/30/2023 SEDIM ENTAT ION RATE performing lab SEE NOTE [facility] [address] [facility] [address] Not Available [address] , [place], [address], 12/30/2023 14:24:21 12/30/19 24 12/30/2023 C-JASON CTIVE PROTE IN note SEE NOTE Order ing Provi yemi: Ria lee UX VISUAL DESIGNER Not Available [address] , [place], [address], 12/30/2023 14:36:14 12/30/19 24 12/30/2023 C-JASON CTIVE PROTE IN C-reactive protein 9.7 mg/L <5.0 high NOT E NEW REFER ENCE RANGE S Not Available [address] , [place], [address], 12/30/2023 14:36:14 12/30/19 24 12/30/2023 C-JASON CTIVE PROTE IN performing lab SEE NOTE ML - [facility] [address] [place] [address] Not Available [address] , [place], [address], 12/30/2023 14:36:14 12/30/19 24 12/30/2023 CHARIS TIN note SEE NOTE Order ing Provi yemi: Ria lee UX VISUAL DESIGNER Not Available [address] , [place], [address], 12/30/2023 14:36:15 12/30/19 24 12/30/2023 CHARIS TIN ferritin 273 NG/mL 8-252 high Not Available [address] , [place], [address], 12/30/2023 14:36:15 12/30/19 24 12/30/2023 CHARSI TIN performing lab SEE NOTE [facility] R [address] [facility] [address] Not Available [address] , [place], [address], 12/30/2023 14:36:15 12/30/19 24 12/30/2023 VITAM IN B12 FOLAT E note SEE NOTE Order ing Provi yemi: Ria lee UX VISUAL DESIGNER Not Available [address] , [place], [address], 12/31/2023 08:18:33 12/30/19 24 12/30/2023 VITAM IN B12 FOLAT E vitamin B12 643 pg/mL 232-12 45 Not Available [address] , [place], [address], 12/31/2023 08:18:33 12/30/19 24 12/30/2023 VITAM IN B12 FOLAT E folic acid 4.6 NG/mL >3.0 . A serum folat e felix ntrat ion of less than 3.1 ng/mL is consi dered to repre sent clini tyrone defic iency . Perfo rmed At: CB, [facility] [address] [facility] [facility], [place], [address] Enrico hurtado, PhD, Phone : [phone] Not Available [address] , [place], [address], 12/31/2023 08:18:33 12/30/19 24 12/30/2023 VITAM IN B12 FOLAT E performing lab SEE NOTE LC2 - LAB[facility] RP CLIEN T# [id number] [address] [place] [address] Not Available [address] [place], [address], 12/31/2023 08:18:33 12/30/19 24 12/30/2023 ANTIN UCLEA R ANTIB ODIES TITER note See Note Order ing Provi yemi: Ria lee UX VISUAL DESIGNER Not Available [address] , [place], [address], 01/03/2024 15:37:04 12/30/19 24 12/30/2023 ANTIN UCLEA R ANTIB ODIES TITER ADELA screen Negati ve () Negat lona <1:80 Borde rline 1:80 Posit lona >1:80 ICAP nomen clatu re: AC-0 For more infor reyna ibrahim about Hep-2 cell patte rns use ANApa ttern s.org , the offic ial brycei te for the Inter natio nal Conse nsus on Antin uclea r Antib ilsa (ADELA) Patte rns (ICAP ). Perfo rmed At: CB, [facility] [address] [facility] [employer] [facility], [place], [address] Enrico hurtado, PhD, Phone : [phone] Not Available [address] [place], [address], 01/03/2024 15:37:04 12/30/19 24 12/30/2023 ANTIN UCLEA R ANTIB ODIES TITER performing lab see note LC2 - LAB[facility] CLIEN T# [id number] [address] [place] [address] Not Available [address] , [place], [address], 01/03/2024 15:37:04 12/23/19 24 XR, lumba r spine No observ ation record ed. NATASHA Avila [address] [place], [address], 12/23/2023 08:15:01 12/23/19 24 XR, pelvi s No observ ation record ed. NATASHA Avila [address] , [place], [address], 12/23/2023 08:15:27 Result Notes None recorded. Problems Name Problem SNOMED Code Status Onset Date Resolution Date Notes Provider Name and Address Organization Details Recorded Time Cyst of right ovary 6918783445651 9108 Active 2018 JAKY Magana - [facility] - [place] [facility] [place] 3 12:19:18 Chronic obstructive pulmonary disease 22569319 Active 2019 JAKY Magana - [facility] - [place] [facility] [place] 3 12:19:18 Leiomyoma 7481988950411 03 Active 2018 JAKY Magana - [facility] - [place] [facility] [place] 3 12:19:18 Constipatio n 63953704 Active 2018 JAKY Magana - [facility] - [place] [facility] [place] 3 12:19:18 Indigestion 072287456 Active 2016 JAKY Magana - [facility] - [place] [facility] [place] 3 12:19:18 Vulval pain 975764481 Active 2021 JAKY Magana - [facility] - [place] [facility] [place] 3 12:19:18 Folic acid deficiency 840383432 Active 2021 Milton [place] [facility] 3 12:19:18 Asthma 045773983 Active 2019 Milton Rangel null, [place] [facility] 3 12:19:18 Fibromyalgi a 500364530 Active 2016 Milton R[place] [facility] 3 12:19:18 Syncope 372958569 Active 2016 Milton Juan Carlos [place] - [facility] [place] 3 12:19:18 Low back pain 553235642 Active 2021 Milton Rangel [place] [facility] [place] 3 12:19:18 Orthostatic hypotension 11419614 Active 2016 Milton Rangel [place] [facility] [place] 3 12:19:18 Pain in pelvis 08283025 Active 2018 Milton Juan Carlos [place] [facility] [place] 3 12:19:18 Iron deficiency 99459042 Active 2018 Milton Juan Carlos [place] - [facility] [place] 3 12:19:18 Migraine 28354889 Active 2017 Milton Mcke[place]ieri [place] - [facility] [place] 3 12:19:18 Hypertensiv e disorder 06780272 Active 2016 Milton Rangel [place] [facility] [place] 3 12:19:18 Hypokalemia 91490847 Active 2021 Milton Rangel [place] [facility] 3 12:19:18 Hyperlipide hector 17901215 Active 2016 Milton Rangel [place] [facility] [place] 3 12:19:18 Wheezing 42794711 Active 2019 Milton Rangel [place] - [facility] - [place] [facility] [place] 3 12:19:18 Occult blood detected in feces 05328706 Active 2021 Milton hudson, [place] - [facility] - [place] [facility] [place] 3 12:19:18 Cyst of vulva 85387198 Active 2021 Milton [place]udson, [place] - [facility] - [place] [facility] [place] 3 12:19:18 History of bariatric surgical procedure 483812009 Active 2018 Milton [place]udson, [place] - [facility] [place] [facility] [place] 3 12:19:18 Nocturnal cough 65037378 Active 2019 Milton [place]udson, [place] - [facility] [place] [facility] [place] 3 12:19:18 Dyspareunia 34647522 Active 2018 Milton [place]udson[place] [facility] [place] [facility] [place] 3 12:19:18 Smoker 36300693 Active 2018 Milton [place]udson[place] [facility] [place] [facility] [place] 3 12:19:18 COVID-19 009635103 Active 2020 Milton hudson[place] - [facility] - [place] [facility] [place] 3 12:19:18 Suspected COVID-19 025759071 Active 2019 Milton [place]udson, [place] - [facility] - [place] [facility] [place] 3 12:19:18 Uterine leiomyoma 22899496 Active 2018 Milton [place]udson, [place] - [facility] [place] [facility] [place] 3 12:19:18 Iron deficiency anemia 96032333 Active 2022 Milton [place]udson[place] - [facility] [place] [facility] [place] 3 12:19:18 Labial cyst 157756969 Active Milton [place]udson, [place] - [facility] - [place] [facility] [place] 3 12:19:18 Esophageal dysmotility 684233628 Active 2022 Charles Jorge MD [address] [place] [address],[facility] [address], [place], [address], [place] - [facility] - [place] [facility] [place] 3 14:35:53 Iron deficiency without anemia 110248382 Active 2022 MARGARITA WAITE NP [address] [place] [address],[facility], [place], [address], [place] [facility] [place] [facility] [place] 3 10:17:40 Joint pain 69805530 Active 2023 MARGARITA WAITE NP [address] [place] [address],[facility] [address], [place], [address], [place] [facility] 4 18:18:09 Fatigue 38222264 Active 2023 MARGARITA WAITE NP [address] [place] [address],[facility], [place], [address], [place] [facility] [place] [facility] [place] 4 18:18:09 Abdominal pain 48858484 Active 2023 MAHNAZ VALENCIA MD [address] [place] [address],[facility], [place], [address], [place] [facility] [place] [facility] [place] 4 14:07:29 Problem Notes None recorded. Procedures Surgical History Date Name Laterality Status Provider Name and Address Organization Details Recorded Time 06/22/20 Venipuncture completed Radha STARKEY - [facility] [place] [facility] [place] 06/22/2024 10:11:17 08/08/19 24 Date of Last Pap Smear completed Marie STARKEY - [facility] - [place] [facility] [place] 09/30/2023 09:33:55 08/08/19 Picture Framer Surgery completed Marie STARKEY - [facility] - [place] [facility] [place] 09/30/2023 09:35:11 06/08/20 23 Date of Last Colonoscopy completed Marie STARKEY - [facility] - [place] [facility] [place] 09/30/2023 09:33:55 05/17/20 23 EGD/Endoscopy completed Milton STARKEY - [facility] [place] [facility] [place] 05/31/2023 13:57:35 05/08/20 23 completed Marie Lal JAKY - [facility] - [place] [facility] [place] 09/30/2023 09:33:55 08/08/19 22 Picture Framer Surgery completed Milton Juan Carlos JAKY - [facility] - [place] [facility] [place] 05/30/2023 12:43:54 08/08/19 20 maintenance of gastric band completed Milton Juan Carlos JAKY - [facility] - [place] [facility] [place] 04/25/2023 15:33:56 08/08/19 17 laparoscopic adjustable gastric banding completed Milton Juan Carlos [place] - [facility] - [place] [facility] [place] 04/25/2023 15:33:36 08/08/19 07 Other completed Milton STARKEY - [facility] - [place] [facility] [place] 05/31/2023 13:58:12 08/08/19 05 section completed Milton Juan Carlos [place] - NOLAN - [place] [facility] [place] 04/25/2023 15:33:12 08/08/19 05 Abdominal Surgery completed Milton Juan Carlos JAKY - LPKOLE - [place] [facility] [place] 05/30/2023 12:43:54 08/08/19 02 Dilation and Curettage completed Milton Juan Carlos JAKY - CHOCONT - [place] [facility] [place] 04/25/2023 15:33:23 01/06/19 69 Most Recent Bone Density completed Marie STARKEY - [facility] - [place] [facility] [place] 09/30/2023 09:33:55 resection of polyp completed Milton STARKEY - [facility] - [place] [facility] [place] 04/25/2023 15:34:32 extraction of wisdom tooth completed Milton STARKEY - [facility] - [place] [facility] [place] 04/25/2023 15:35:11 Imaging Results Imaging Date Name Status LastModified by [employer] [facility] Details LastModified Time 12/23/2023 XR, lumbar [facility] [address] [place], [address], 12/23/2023 08:15:01 12/23/2023 XR, pelvis completed NATASHA Potts[address] [place], [address], 12/23/2023 08:15:27 Procedure Notes None recorded. Medical Equipment None Reported. Allergies Allergen ID Allergen Name Allergen Category Reaction Reaction Severity Criticality Documentation Date Start Date Code Code System Note Provider Name and Address Organization Details Recorded Time 01781 Claritin- D medicatio n Not available Not available Not available 04/07/20232007 82903 6 RxNorm Marie Lal [facility] & [place] 3 14:52:00 74420 chlorphen iramine medicatio n dyspnea moderate Not available 05/31/20232021 2400 RxNorm Milton Rangel [facility] & [place] 3 12:19:34 95237 phenylpro panolamin e medicatio n dyspnea moderate Not available 05/31/20232021 8175 RxNorm Milton Rangel [facility] & [place] 3 12:19:34 Medications Name Sig Start Date Stop Date Status Note LastModified by Organization Details LastModified Time losartan 50 mg tablet TAKE ONE (1) TABLET EVERY DAY BY ORAL ROUTE FOR 90 DAYS. active Not Available Not Available No t Available cyclobenzap rine 10 mg tablet TAKE ONE (1) TABLET TWICE A DAY BY ORAL ROUTE NEEDED FOR 30 DAYS. active Not Available Not Available No t Available amoxicillin 500 mg capsule take 1 capsule (500 mg) by oral route every 12 hours for 10 days 09/07 completed Not Available Not Available Not Available promethazin e-DM 6.25 mg-15 mg/5 mL oral syrup Take 5 mL every 6 hours by oral route as needed for 7 days. 08/24 completed Not Available Not Available Not Available nystatin 100,000 unit/mL oral suspension 04/07 completed Not Available Not Available Not Available prednisone 10 mg tablet TAKE ONE (1) TABLET TWICE A DAY BY ORAL ROUTE FOR FIVE (5) DAYS. active Not Available Not Available No t Available doxycycline hyclate 100 mg capsule TAKE ONE (1) CAPSULE TWICE A DAY BY ORAL ROUTE AFTER MEAL(S) FOR 10 DAYS. active Not Available Not Available No t Available nicotine 14 mg/24 hr daily transdermal patch Apply 1 patch every day by transderm al route for 45 days. 04/07 completed Not Available Not Available Not Available Anusol-HC 2.5 % rectal cream with applicator apply to the affected area(s) by topical route 2 times per day 07/10 completed Not Available Not Available Not Available albuterol sulfate 2.5 mg/3 mL (0.083 %) solution for nebulizatio n 2.5 mg by inhalatio n route. 05/16 completed Not Available Not Available Not Available Topamax 25 mg tablet Take 1 tablet every day by oral route for 30 days. 10/25 completed Not Available Not Available Not Available lisinopril 20 mg-hydrochl orothiazide 12.5 mg tablet take 1 tablet by oral route once daily for 30 days 06/23 completed Not Available Not Available Not Available pravastatin 40 mg tablet Take 1 tablet every day by oral route. 12/23 completed Not Available Not Available Not Available ibuprofen 800 mg tablet 800 mg by oral route. 05/16 completed Not Available Not Available Not Available benzonatate 200 mg capsule Take 1 capsule 3 times a day by oral route as needed for 7 days. 08/07 completed Not Available Not Available Not Available Vicodin 5 mg-500 mg tablet take 1 tablet by oral route every 6 hours as needed for pain 02/20 completed Not Available Not Available Not Available valacyclovi r 1 gram tablet 1000 mg by oral route. 09/28 completed Not Available Not Available Not Available sumatriptan 100 mg tablet TAKE ONE (1) TABLET (100 MG) BY ORAL ROUTE ONCE WITH FLUIDS EARLY POSSIBLE AFTER THE ONSET OF A MIGRAINE ATTACK;MA Y REPEAT AFTER TWO (2) HOURS IF HEADACHE CONTINUES . NO MORE THAN TWO (2) TABLETS PER 24 HOURS. 03/27 completed Not Available Not Available Not Available cephalexin 250 mg capsule TAKE ONE (1) CAPSULE BY MOUTH DAILY. active Not Available Not Available No t Available hydrocodone 5 mg-acetamin ophen 325 mg tablet TAKE ONE (1) - TWO (2) TABLETS BY ORAL ROUTE EVERY BEDTIME NEEDED FOR PAIN 03/27 completed Not Available Not Available Not Available Celestone Soluspan 6 mg/mL suspension for injection Take 1 mL by injection route. 02/15 completed Not Available Not Available Not Available ondansetron HCl 4 mg tablet TAKE 1 TABLET BY MOUTH EVERY 6 HOURS NEEDED FOR NAUSEA 02/15 completed Not Available Not Available Not Available bupivacaine HCl 0.5 % (5 mg/mL) injection solution Take 2 mL by injection route. 03/27 completed Not Available Not Available Not Available prednisone 20 mg tablet TAKE ONE (1) TABLET EVERY DAY BY ORAL ROUTE FOR FIVE (5) DAYS. 12/22 completed Not Available Not Available Not Available rizatriptan 10 mg tablet TAKE ONE (1) TABLET BY MOUTH ONCE. MAY REPEAT DOSE EVERY TWO (2) HOURS UP TO 30MG IN 24 HOURS. 10/28 completed Not Available Not Available Not Available prednisone 5 mg tablet TAKE ONE (1) TABLET EVERY DAY BY ORAL ROUTE FOR FIVE (5) DAYS. 12/22 completed Not Available Not Available Not Available Ferrex 150 mg iron capsule TAKE ONE (1) CAPSULE TWICE A DAY BY ORAL ROUTE FOR 30 DAYS. 09/28 completed Not Available Not Available Not Available Pyridium 200 mg tablet Take 1 tablet 3 times a day by oral route for 21 days. 07/05 completed Not Available Not Available Not Available Zithromax Z-Ish 250 mg tablet take 2 tablets (500 mg) by oral route once daily for 1 day then 1 tablet (250 mg) by oral route once daily for 4 days 07/18 completed Not Available Not Available Not Available Diflucan 150 mg tablet take 1 tablet (150 mg) by oral route today, repeat in 3-5 days if needed 12/19 completed Not Available Not Available Not Available sumatriptan 50 mg tablet TAKE ONE (1) TABLET BY MOUTH EVERY TWO (2) HOURS NEEDED BEGINNING AT ONSET OF MIGRAINE (DO NOT EXCEED FOUR (4) TABLETS/D AY) 12/22 completed Not Available Not Available Not Available promethazin e 6.25 mg-codeine 10 mg/5 mL syrup TAKE FIVE (5) ML EVERY SIX (6) HOURS BY ORAL ROUTE NEEDED FOR FIVE (5) DAYS. 12/22 completed Not Available Not Available Not Available Zyrtec 10 mg tablet take 1 tablet (10 mg) by oral route once daily for 30 days 10/26 completed Not Available Not Available Not Available phentermine 37.5 mg tablet TAKE ONE HALF (1/2) TAB BY MOUTH DAILY 12 HOURS PRIOR TO BEDTIME FOR 7 DAYS THEN ADVANCE TO ONE (1) WHOLE TAB DAILY. 01/20 completed Not Available Not Available Not Available ciprofloxac in 500 mg tablet TAKE ONE (1) TABLET EVERY 12 HOURS BY ORAL ROUTE FOR 7 DAYS. 05/26 completed Not Available Not Available Not Available sulfamethox azole 800 mg-trimetho prim 160 mg tablet TAKE ONE (1) TABLET BY MOUTH EVERY 12 HOURS FOR THREE (3) DAYS. 03/27 completed Not Available Not Available Not Available peg-electro lyte solution 420 gram oral solution USE DIRECTED 05/03 completed Not Available Not Available Not Available omeprazole 40 mg capsule,del ayed release TAKE ONE (1) CAPSULE TWICE A DAY BY ORAL ROUTE DIRECTED FOR 90 DAYS. active Not Available Not Available No t Available doxycycline monohydrate 100 mg tablet 07/16 completed Not Available Not Available Not Available tramadol 50 mg tablet Take 1 tablet twice a day by oral route for 7 days. 07/09 completed Not Available Not Available Not Available amitriptyli ne 50 mg tablet TAKE ONE (1) TABLET BY MOUTH EVERY NIGHT AT BEDTIME active Not Available Not Available No t Available ketorolac 30 mg/mL (1 mL) injection solution Inject 1 mL by intramusc ular route. 05/10 completed Not Available Not Available Not Available butalbital- acetaminoph en-caffeine 50 mg-325 mg-40 mg tablet TAKE ONE (1) TABLET BY MOUTH EVERY EIGHT (8) HOURS NEEDED 12/22 completed Not Available Not Available Not Available amoxicillin 500 mg tablet Take 1 tablet every 8 hours by oral route for 7 days. 09/04 completed Not Available Not Available Not Available Depo-Medrol 80 mg/mL suspension for injection give 80 mg depomedro l IM 08/24 completed Not Available Not Available Not Available Zantac 150 mg tablet Take 1 tablet twice a day by oral route as needed for 30 days. 01/11 completed Not Available Not Available Not Available potassium chloride 20 mEq/15 mL oral liquid Take 15 mL every day by oral route for 30 days. 04/07 completed Not Available Not Available Not Available ketorolac 10 mg tablet Take 1 tablet PO QID for chronic back pain, do not exceed 5 tablets in 24 hours, do not take more than 5 days in a row 10/27 completed Not Available Not Available Not Available oxycodone-a cetaminophe n 5 mg-325 mg tablet TAKE ONE (1) TO TWO (2) TABLETS BY MOUTH EVERY SIX (6) HOURS NEEDED FOR SEVERE PAIN (MAX OF SIX (6) TABLETS PER DAY) 09/28 completed Not Available Not Available Not Available ceftriaxone 1 gram solution for injection Take 125 mg by injection route. 07/05 completed Not Available Not Available Not Available potassium chloride ER 20 mEq tablet,exte nded release(par t/cryst) TAKE ONE (1) TABLET BY ORAL ROUTE ONCE DAILY FOR 14 DAYS 05/31 completed Not Available Not Available Not Available amitriptyli ne 25 mg tablet TAKE 1 TABLET BY MOUTH EVERY DAY 10/14 completed Not Available Not Available Not Available Kenalog 10 mg/mL suspension for injection Take 20 mg by injection route. 03/27 completed Not Available Not Available Not Available amitriptyli ne 10 mg tablet TAKE 1 TABLET BY MOUTH EVERY DAY 08/14 completed Not Available Not Available Not Available Proctozone- HC 2.5 % topical cream perineal applicator apply by rectal route 2 times a day as needed 02/27 completed Not Available Not Available Not Available Sheila 180 mg tablet take 1 tablet (180 mg) by oral route once daily for 30 days 08/02 completed Not Available Not Available Not Available baclofen 10 mg tablet TAKE ONE (1) TABLET TWICE A DAY BY ORAL ROUTE NEEDED. 11/24 completed Not Available Not Available Not Available benzonatate 100 mg capsule take 1 capsule (100 mg) by oral route 3 times per day for 21 days 10/27 completed Not Available Not Available Not Available rizatriptan 10 mg disintegrat ing tablet 10 mg by oral route. 12/22 completed Not Available Not Available Not Available cephalexin 500 mg capsule TAKE 1 CAPSULE BY MOUTH FOUR TIMES DAILY FOR 10 DAYS 05/06 completed Not Available Not Available Not Available Micronor (28) 0.35 mg tablet take 1 tablet by oral route once daily 06/23 completed Not Available Not Available Not Available acyclovir 5 % topical ointment APPLY TO THE AFFECTED AREA(S) BY TOPICAL ROUTE 6 TIMES PER DAY NEEDED 09/28 completed Not Available Not Available Not Available cyanocobala min (vit B-12) 1,000 mcg/mL injection solution Inject 1 mL every month by intramusc ular route for 1 day. 01/11 completed Not Available Not Available Not Available oseltamivir 75 mg capsule Take 1 capsule twice a day by oral route as directed for 5 days. 06/13 completed Not Available Not Available Not Available ferrous sulfate 325 mg (65 mg iron) tablet Take 1 tablet 3 times a day by oral route for 30 days. 06/10 completed Not Available Not Available Not Available Proctofoam HC 1 %-1 % apply to the affected area(s) by topical route 3 times per day 10/13 completed Not Available Not Available Not Available Norvasc 5 mg tablet take 1 tablet (5 mg) by oral route once daily for 30 days 06/10 completed Not Available Not Available Not Available Lincocin 300 mg/mL injection solution Take 300 mg by injection route. 11/07 completed Not Available Not Available Not Available lisinopril 10 mg tablet take 1 tablet (10 mg) by oral route once daily 05/09 completed Not Available Not Available Not Available hyoscyamine 0.125 mg sublingual tablet 11/07 completed Not Available Not Available Not Available naproxen sodium 220 mg tablet 220 mg by oral route. 08/03 completed Not Available Not Available Not Available promethazin e 25 mg tablet TAKE ONE (1) TABLET BY ORAL ROUTE EVERY SIX (6) HOURS NEEDED FOR NAUSEA 12/22 completed Not Available Not Available Not Available albuterol sulfate 2 mg/5 mL oral syrup Take 5 mL 3 times a day by oral route as needed for 5 days. 01/06 completed Not Available Not Available Not Available losartan 25 mg tablet TAKE ONE (1) TABLET BY MOUTH EVERY DAY 12/29 completed Not Available Not Available Not Available metoprolol tartrate 50 mg tablet 1/2 tablet betime hold for sbp <110 or hr <60 06/23 completed Not Available Not Available Not Available hydrochloro thiazide 12.5 mg capsule TAKE ONE (1) CAPSULE EVERY DAY BY ORAL ROUTE DIRECTED FOR 90 DAYS. 05/31 completed Not Available Not Available Not Available fluoxetine 10 mg capsule TAKE ONE (1) CAPSULE EVERY DAY BY ORAL ROUTE AFTER A MEAL active Not Available Not Available No t Available docusate sodium 100 mg capsule TAKE 1 CAPSULE BY MOUTH TWICE DAILY WITH AT LEAST 8 OUNCES OF WATER 12/22 completed Not Available Not Available Not Available gabapentin 300 mg capsule Take 1 capsule 3 times a day by oral route for 30 days. 03/25 completed Not Available Not Available Not Available omeprazole 20 mg capsule,del ayed release TAKE ONE (1) CAPSULE BY ORAL ROUTE ONCE DAILY FOR 30 DAYS 05/31 completed Not Available Not Available Not Available lidocaine HCl 3 % topical cream apply to the affected area(s) by topical route 2 times per day 10/13 completed Not Available Not Available Not Available folic acid 1 mg tablet TAKE ONE (1) TABLET EVERY DAY BY ORAL ROUTE BEFORE MEALS FOR 90 DAYS. 09/28 completed Not Available Not Available Not Available montelukast 10 mg tablet TAKE ONE (1) TABLET EVERY DAY BY ORAL ROUTE DIRECTED FOR 90 DAYS. active Not Available Not Available No t Available hydroxyzine HCl 25 mg tablet TAKE ONE (1) TABLET TWICE A DAY BY ORAL ROUTE DIRECTED FOR 90 DAYS. active Not Available Not Available No t Available pravastatin 20 mg tablet take 1 tablet (20 mg) by oral route once daily at bedtime for 90 days 08/20 completed Not Available Not Available Not Available metoprolol succinate ER 25 mg tablet,exte nded release 24 hr Take 1 tablet every day by oral route for 30 days. 01/11 completed Not Available Not Available Not Available ergocalcife rol (vitamin D2) 1,250 mcg (50,000 unit) capsule TAKE ONE (1) CAPSULE EVERY WEEK BY ORAL ROUTE DIRECTED FOR 30 DAYS. active Not Available Not Available No t Available dexamethaso ne sodium phosphate 4 mg/mL injection solution Inject 4 mg by intramusc ular route. 11/07 completed Not Available Not Available Not Available hydroxychlo roquine 200 mg tablet TAKE ONE (1) TABLET (200 MG) BY MOUTH TWO (2) (TWO) TIMES A DAY. active Not Available Not Available No t Available Tylenol-Cod eine #3 300 mg-30 mg tablet Take 1 tablet twice a day by oral route as needed. 02/27 completed Not Available Not Available Not Available lisinopril 10 mg-hydrochl orothiazide 12.5 mg tablet take 1 tablet by oral route once daily for 90 days 12/06 completed Not Available Not Available Not Available ibuprofen 600 mg tablet TAKE 1 TABLET BY MOUTH EVERY SIX (6) HOURS WITH FOOD NEEDED FOR PAIN/CRAM PS 09/28 completed Not Available Not Available Not Available polyethylen e glycol 3350 17 gram/dose oral powder TAKE 17 GRAM MIXED WITH 8 OZ. WATER, JUICE, SODA, COFFEE OR TEA BY ORAL ROUTE TWICE A DAY 09/28 completed Not Available Not Available Not Available levofloxaci n 500 mg tablet Take 1 tablet every 24 hours by oral route for 10 days. 06/10 completed Not Available Not Available Not Available lovastatin 20 mg tablet TAKE ONE TABLET BY MOUTH DAILY WITH THE EVENING MEAL 12/25 completed Not Available Not Available Not Available methylpredn isolone 4 mg tablets in a dose pack TAKE DIRECTED ON PACKAGE 03/27 completed Not Available Not Available Not Available hydrocodone 10 mg-chlorphe niramine 8 mg/5 mL oral susp extend.rel 12hr Take 5 mL every day by oral route at bedtime. 03/29 completed Not Available Not Available Not Available albuterol sulfate HFA 90 mcg/actuati on aerosol inhaler INHALE ONE (1) - TWO (2) PUFFS BY INHALATIO N ROUTE EVERY SIX (6) HOURS NEEDED active Not Available Not Available No t Available ketorolac 60 mg/2 mL intramuscul ar solution Inject 60mg IM x1 now 11/10 completed Not Available Not Available Not Available albuterol sulfate 2 mg tablet take 1 tablet (2 mg) by oral route every 6 hours prn cough or wheeze 01/27 completed Not Available Not Available Not Available hydroxyzine HCl 10 mg tablet take 1 tablet by oral route 4 times a day for 10 days 04/27 completed Not Available Not Available Not Available bromphenira mine-pseudo ephedrine-D M 2 mg-30 mg-10 mg/5 mL oral syrup TAKE 8 ML EVERY 4-6 HOURS BY ORAL ROUTE NEEDED. active Not Available Not Available No t Available ondansetron 4 mg disintegrat ing tablet TAKE ONE (1) TABLET BY ORAL ROUTE EVERY FOUR (4) HOURS NEEDED NEEDED FOR NAUSEA AND VOMITING 12/22 completed Not Available Not Available Not Available Imitrex 25 mg tablet take 1 tablet (25 mg) by oral route once with fluids as early as possible after the onset of a migraine attack 11/06 completed Not Available Not Available Not Available cholecalcif jason (vitamin D3) 125 mcg (5,000 unit) capsule take 3 capsules by oral route QW for 90 days 02/17 completed Not Available Not Available Not Available naproxen 500 mg tablet TAKE ONE (1) TABLET TWICE A DAY BY ORAL ROUTE NEEDED FOR 90 DAYS. 03/27 completed Not Available Not Available Not Available diazepam 5 mg tablet TAKE 1 TABLET BY MOUTH NEEDED PRIOR TO INFUSION. MAY TAKE THE SECOND DOSE FOR CONTINUED ANXIETY FOR ONE DAY. 02/15 completed Not Available Not Available Not Available amoxicillin 875 mg-potassiu m clavulanate 125 mg tablet take 1 tablet by oral route every 12 hours for 10 days 12/21 completed Not Available Not Available Not Available amoxicillin 500 mg-potassiu m clavulanate 125 mg tablet TAKE ONE (1) TABLET EVERY 12 HOURS BY ORAL ROUTE FOR 10 DAYS. 05/26 completed Not Available Not Available Not Available nicotine 7 mg/24 hr daily transdermal patch Apply 1 patch every day by transderm al route for 14 days. 04/07 completed Not Available Not Available Not Available Zithromax 500 mg tablet Take 1 tablet (500 mg) by oral route once a day for 5 days 08/16 completed Not Available Not Available Not Available cyclobenzap rine 5 mg tablet TAKE ONE (1) TABLET TWICE A DAY BY ORAL ROUTE DIRECTED active Not Available Not Available No t Available escitalopra m 5 mg tablet TAKE ONE (1) TABLET EVERY DAY BY ORAL ROUTE DIRECTED FOR 90 DAYS. 03/27 completed Not Available Not Available Not Available nitrofurant oin monohydrate /macrocryst als 100 mg capsule TAKE ONE (1) CAPSULE TWICE A DAY BY ORAL ROUTE FOR 7 DAYS. 03/27 completed Not Available Not Available Not Available Mucinex DM 30 mg-600 mg tablet,exte nded release 12 hr take 1 - 2 tablets by oral route every 12 hours as needed for 10 days 12/26 completed Not Available Not Available Not Available 27 mg iron-0.8 mg tablet take 1 tablet by oral route once daily for 90 days 05/10 completed Not Available Not Available Not Available Zoloft 1 qpm 06/23 completed Not Available Not Available Not Available Naprosyn 1 bid 10/26 completed Not Available Not Available Not Available Aquasol E (d-alpha tocopherol) 12/20 completed Not Available Not Available Not Available Keflex 1 tid 03/09 completed Not Available Not Available Not Available Indocin 1 tid with food 10/26 completed Not Available Not Available Not Available Valtrex 1 gd 10/26 completed Not Available Not Available Not Available Protonix 1 qd 06/23 completed Not Available Not Available Not Available Appearex 1 tab qd 06/13 completed Not Available Not Available Not Available budesonide 180 mcg/actuati on breath activated powder inhaler 12/22 completed Not Available Not Available Not Available hydrochloro thiazide 12.5 mg tablet take 1 tablet (12.5 mg) by oral route once daily 09/08 completed Not Available Not Available Not Available ondansetron HCl (PF) 4 mg/2 mL injection syringe give zofran 4mg IM please 09/08 completed Not Available Not Available Not Available budesonide- formoterol HFA 160 mcg-4.5 mcg/actuati on aerosol inhaler Inhale 2 puffs twice a day by inhalatio n route for 28 days. 11/24 completed Not Available Not Available Not Available levocetiriz ine 5 mg tablet TAKE ONE (1) TABLET EVERY DAY BY ORAL ROUTE DIRECTED FOR 90 DAYS. active Not Available Not Available No t Available cholecalcif jason (vitamin D3) 50 mcg (2,000 unit) capsule TAKE ONE (1) CAPSULE EVERY DAY BY ORAL ROUTE FOR 90 DAYS. active Not Available Not Available No t Available cholecalcif jason (vitamin D3) 50 mcg (2,000 unit) tablet TAKE ONE (1) TABLET EVERY DAY BY ORAL ROUTE. 09/28 completed Not Available Not Available Not Available Feraheme 510 mg/17 mL (30 mg/mL) intravenous solution Infuse 510 mg IV administe ring 2 doses given 3-7 days apart 2023 active Not Available Not Available Not Avai lable butalbital- acetaminoph en-caffeine 50 mg-300 mg-40 mg capsule TAKE ONE (1) CAPSULE EVERY 8 HOURS BY ORAL ROUTE NEEDED FOR 10 DAYS. 12/22 completed Not Available Not Available Not Available Adult [facility]-Tussin 100 mg/5 mL oral liquid 01/06 completed Not Available Not Available Not Available Lam[facility] Canales [facility] spacer 05/11 completed Not Available Not Available Not Available Rectiv 0.4 % (w/w) ointment apply 1 inch by rectal route BID for 3 weeks 10/13 completed Not Available Not Available Not Available Linzess 145 mcg capsule Take 1 capsule every day by oral route in the morning as needed 09/28 completed Not Available Not Available Not Available + DHA 28 mg iron-800 mcg-200 mg oral pack Take 1 pack every day by oral route in the evening. 12/20 completed Not Available Not Available Not Available Vascepa 1 gram capsule take 2 capsules (2 gram) by oral route 2 times per day with food swallowin g whole. Do not chew, open, dissolve and/or crush. for 30 days 12/25 completed Not Available Not Available Not Available Multi Vitamin 9 mg iron/15 mL oral liquid 12/20 completed Not Available Not Available Not Available Pirmella 1 mg-35 mcg tablet Take 1 tablet every day by oral route. 06/10 completed Not Available Not Available Not Available potassium chloride ER 20 mEq tablet,exte nded release Take 1 tablet every day by oral route. 02/15 completed Not Available Not Available Not Available Emgality Pen 120 mg/mL subcutaneou s pen injector INJECT ONE (1) ML EVERY MONTH BY SUBCUTANE OUS ROUTE. active Not Available Not Available No t Available Ubrelvy 100 mg tablet Take 1 tablet every day by oral route as needed. 12/22 completed Not Available Not Available Not Available Nurtec ODT 75 mg disintegrat ing tablet TAKE 1 TABLET ON OR UNDER THE TONGUE ONCE A DAY NEEDED. 10/28 completed Not Available Not Available Not Available Sutab 1.479-0.188 -0.225 gram tablet take as directed 05/31 completed Not Available Not Available Not Available Qulipta 60 mg tablet TAKE ONE (1) TABLET EVERY DAY BY ORAL ROUTE FOR 30 DAYS. 12/22 completed Not Available Not Available Not Available Vitals Date Recorded Body height Provider Name an d Address Organization Details Last Updated DateTime 12/23/2023 162.56 cm Tanna Sanchez [place] - [facility] & [place] 12/23/2023 08:10:26 Date Recorded Body height Body mass index (BMI) Body weight Body temperature Oxygen saturation Oxygen saturation in Arterial blood by Pulse oximetry Heart rate Respiratory rate Systolic blood pressure Diastolic blood pressure Provider Name and Address Organization Details Last Updated DateTime 162.56 cm 33.3 kg/m2 95870.6 4 g 97.8 [degF] 97 % 97 % 69 /min 16 /min 146 mm[Hg] 80 mm[Hg] Marie Lal [place] - [facility] & [place] 09:51:20 Date Recorded Body height Body mass index (BMI) Body weight Body temperature Oxygen saturation Oxygen saturation in Arterial blood by Pulse oximetry Heart rate Systolic blood pressure Diastolic blood pressure Provider Name and Address Organization Details Last Updated DateTime 4 162.56 cm 33.5 kg/m2 50185.2 3 g 98.2 [degF] 100 % 100 % 78 /min 141 mm[Hg] 78 mm[Hg] Geno Rios [facility] & [place] 4 13:49:26 Date Recorded Body height Body mass index (BMI) Body weight Body temperature Oxygen saturation Oxygen saturation in Arterial blood by Pulse oximetry Heart rate Respiratory rate Systolic blood pressure Diastolic blood pressure Provider Name and Address Organization Details Last Updated DateTime 4 162.56 cm 33.1 kg/m2 91108.6 1 g 98.1 [degF] 99 % 99 % 71 /min 16 /min 131 mm[Hg] 63 mm[Hg] Marie Barton [facility] & [place] 4 10:46:17 Date Recorded Body height Provider Name an d Address Organization Details Last Updated DateTime 06/22/2024 162.56 cm Radha Jackson [facility] & [place] 06/22/2024 10:02:24 Social History Question Answer Notes LastModified by Organizat ion Details LastModified Time Tobacco Smoking Status Former Smoker [place] [facility], [facility] & [place] 04/25/2023 15:31:36 Do You Have An Advance Directive? No Information not available 05/30/2023 What Is Your Level Of Alcohol Consumption? Occasional Information not available 05/30/2023 Are You Blind Or Do You Have Difficulty Seeing? No Information not available 05/30/2023 What Is Your Level Of Caffeine Consumption? Moderate Information not available 05/30/2023 What Type Of Diet Are You Following? REGULAR Information not available 05/30/2023 Which Illicit Or Recreational Drugs Have You Used? 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 6-10yearssinmarni elizabeth Information not available 05/30/2023 What Was The Date Of Your Most Recent Tobacco Screening? 04/20/2024 Information not available 04/20/2024 Are You Passively Exposed To Smoke? Yes Information not available 05/30/2023 Do You Or Have You Ever Used Smokeless Tobacco? Never Used Smokeless Tobacco Information not available 05/30/2023 How Much Tobacco Do You Smoke? 0.5 PPD Information not available 05/30/2023 Do You Feel Stressed (tense, Restless, Nervous, Or Anxious, Or Unable To Sleep At Night)? [id number] Information not available 05/30/2023 Do You Use Any Illicit Or Recreational Drugs? Yes Information not available 04/25/2023 How Many Years Have You Smoked Tobacco? 20 Information not available 12/30/2023 Have You Used IV Drugs? No Information not available 05/31/2023 Sex: Unknown Functional Status Question Answer Note LastModified by Organization D etails LastModified Time What is your exercise level? None [id number] Information not available 12/30/2023 Mental Status None recorded. Family History Relationship Description Onset Age of this Age Resolved Age Notes LastModified by Organization Details LastModified Time Mother Allergy pt. added direct ly (04/07) [email or web address] Not available 04/07/2023 14:36:47 Mother Chronic obstructive pulmonary disease pt. added direct ly (04/07) [email or web address] Not available 04/07/2023 14:36:47 Mother Gastroesopha geal reflux disease pt. added direct ly (04/07) [email or web address] Not available 04/07/2023 14:36:47 Mother Hypercholest erolemia pt. added direct ly (04/07) [email or web address] Not available 04/07/2023 14:36:47 Mother Hypertensive disorder pt. added direct ly (04/07) [email or web address] Not available 04/07/2023 14:36:47 Mother Mental health problem pt. added direct ly (04/07) [email or web address] Not available 04/07/2023 14:36:47 Mother Obesity pt. added direct ly (04/07) [email or web address] Not available 04/07/2023 14:36:47 Father Gastroesopha geal reflux disease pt. added direct ly (04/07) [email or web address] Not available 04/07/2023 14:37:13 Father Hypercholest erolemia pt. added direct ly (04/07) [email or web address] Not available 04/07/2023 14:37:13 Father Hypertensive disorder pt. added direct ly (04/07) [email or web address] Not available 04/07/2023 14:37:13 Sister Allergy pt. added direct ly (04/07) [email or web address] Not available 04/07/2023 14:37:38 Sister Anemia pt. added direct ly (04/07) [email or web address] Not available 04/07/2023 14:37:38 Sister Gastroesopha geal reflux disease pt. added direct ly (04/07) [email or web address] Not available 04/07/2023 14:37:38 Sister Headache pt. added direct ly (04/07) [email or web address] Not available 04/07/2023 14:37:38 Sister Mental health problem pt. added direct ly (04/07) [email or web address] Not available 04/07/2023 14:37:38 Sister Obesity pt. added direct ly (04/07) [email or web address] Not available 04/07/2023 14:37:38 Sister Sleep disorder pt. added direct ly (04/07) [email or web address] Not available 04/07/2023 14:37:38 Son Allergy pt. added direct ly (04/07) [email or web address] Not available 04/07/2023 14:38:01 Son Gastroesopha geal reflux disease pt. added direct ly (04/07) [email or web address] Not available 04/07/2023 14:38:01 Son Headache pt. added direct ly (04/07) [email or web address] Not available 04/07/2023 14:38:01 Son Hypercholest erolemia pt. added direct ly (04/07) [email or web address] Not available 04/07/2023 14:38:01 Maternal Grandmother Allergy pt. added direct ly (04/07) [email or web address] Not available 04/07/2023 14:38:38 Maternal Grandmother Disorder of endocrine system pt. added direct ly (04/07) API-13 Not available 04/07/2023 14:38:38 Maternal Grandmother Hearing loss pt. added direct ly (04/07) API-13 Not available 04/07/2023 14:38:38 Maternal Grandmother Obesity pt. added direct ly (04/07) API-13 Not available 04/07/2023 14:38:38 Maternal Grandfather Chronic obstructive pulmonary disease pt. added direct ly (04/07) API-13 Not available 04/07/2023 14:39:11 Maternal Grandfather Hearing loss pt. added direct ly (04/07) API-13 Not available 04/07/2023 14:39:11 Maternal Grandfather Heart disease pt. added direct ly (04/07) API-13 Not available 04/07/2023 14:39:11 Maternal Aunt Headache pt. added direct ly (04/07) API-13 Not available 04/07/2023 14:40:13 Maternal Aunt Hypercholest erolemia pt. added direct ly (04/07) API-13 Not available 04/07/2023 14:40:13 Maternal Aunt Hypertensive disorder pt. added direct ly (04/07) API-13 Not available 04/07/2023 14:40:13 Maternal Aunt Mental health problem pt. added direct ly (04/07) API-13 Not available 04/07/2023 14:40:14 Maternal Aunt Obesity pt. added direct ly (04/07) API-13 Not available 04/07/2023 14:40:14 Maternal Aunt Disorder of thyroid gland pt. added direct ly (04/07) API-13 Not available 04/07/2023 14:40:14 Maternal Uncle Chronic obstructive pulmonary disease pt. added direct ly (04/07) API-13 Not available 04/07/2023 14:40:41 Maternal Uncle Hypertensive disorder pt. added direct ly (04/07) API-13 Not available 04/07/2023 14:40:41 Maternal Uncle Substance abuse pt. added direct ly (04/07) API-13 Not available 04/07/2023 14:40:41 Medical History Condition Response Coronary Artery Disease N Other Y None N Gout N Colon Cancer N Kidney Stones N Hyperthyroidism N Kidney or Bladder Problems Y COPD Y Lung Disease Y Hypothyroidism N Depression N Osteoporosis/Osteopenia N Anemia Y Diverticulitis/Diverticulosis N Colon Polyps N Anxiety Disorder N Diabetes N Obesity Y Bleeding Disorder N Arthritis N Seizures/Epilepsy N Tuberculosis N Hyperlipidemia N Cancer N Back Problems Y Stroke N Asthma Y Lupus Y Reflux/GERD Y Sleep Apnea N GERD/Reflux N Hepatitis N Cirrhosis N Liver Disease N Psychiatric/Mental Health Condition Y Heart Disease N Headaches Y Hypertension Y Kidney Disease N Gynecological History Statement/Question Response Abnormal Pap N Flow Heavy 05/08/2023 Date of LMP 08/21/2023 Duration of Flow (days) 4 Current Control Method Hysterectom y Age at Menarche 14 Date of Last Colonoscopy 06/08/2023 Most Recent Bone Density 01/06/1969 Sexually Active? Y Menses Monthly Y Date of Last Pap Smear 08/08/2023 Obstetrics History GPAL:G 0 P 0 0 0 0 Immunizations Vaccine Type Date Status Provider Name and Address Organization Details Recorded Time Influenza, split virus, quadrivalent, preservative 05/08/2020 completed Not Available [facility] 05/18/2023 01:43:07 Influenza, split virus, quadrivalent, preservative 05/25/2019 completed Not Available [facility] 05/18/2023 01:43:07 Influenza, split virus, quadrivalent, preservative 06/05/2018 completed Not Available [facility] 05/18/2023 01:43:07 Influenza, split virus, quadrivalent, preservative 06/05/2021 completed Not Available [facility] 05/18/2023 01:43:08 Influenza, split virus, quadrivalent, preservative 06/08/2017 completed Not Available [facility] 05/18/2023 01:43:08 COVID-19 vaccine, vector-nr, rS-[id number], PF, 0.5 mL 04/01/2021 completed Not Available [facility] 05/18/2023 01:43:08 influenza, unspecified formulation 05/15/2013 completed Not Available [facility] 05/18/2023 01:43:08 influenza, unspecified formulation 05/22/2015 completed Not Available [facility] 05/18/2023 01:43:08 influenza, unspecified formulation 05/24/2014 completed Not Available [facility] 05/18/2023 01:43:08 influenza, unspecified formulation 06/20/2012 completed Not Available [facility] 05/18/2023 01:43:08 Tdap 05/18/2011 completed Not Available [facility] 01:43:08 Tdap 07/13/2019 completed Not Available [facility] 01:43:08 Influenza, split virus, trivalent, PF 06/20/2012 completed Not Available [facility] 05/18/2023 01:43:08 Hep A, adult 09/04/2018 completed Not Available [facility] 05/18/2023 01:43:08 Hep A, adult 05/25/2019 completed Not Available [facility] 05/18/2023 01:43:08 influenza, unspecified formulation 05/08/2022 completed Not Available [facility] 05/18/2023 01:43:08 influenza, unspecified formulation 05/10/2023 completed [facility] [place] 05/31/2023 12:23:17 Past Encounters Encounter ID Performer Location Encounter Start Date Encounter Closed Date Diagnosis/Indication Diagnosis SNOMED-CT Code Diagnosis ICD10 Code [id number] MD V[facility] [address] [place] [address] 04/07/2023 14:30:41 04/07/2023 15:16:49 Iron deficiency without anemia 329579738 E61.1 History of bariatric surgical procedure 082667052 Z98.84 Folic acid deficiency 19 6860347 E53.8 Painful re ctal bleeding 667261293 K62.5 [id number] [address] Jorge MD [facility] [address] [place] [address],[facility] [address] [place] [address] 04/25/2023 14:36:26 04/25/2023 16:33:56 Iron deficiency anemia 00020667 D50.9 Hypokalemia 01028848 E87 .6 [id number] Charles Jorge MD [facility] [address] [place] [address] Drive,[address] [place] [address] 05/31/2023 13:48:12 05/31/2023 14:46:24 Iron deficiency anemia 84798560 D50.9 Hypokalemia 52314958 E87 .6 Esophageal dysmotility 411610657 K22.4 [id number] [facility] [address] [place] [address] [place] [address] 05/31/2023 13:11:34 05/31/2023 13:48:28 Iron deficiency without anemia 331726805 E61.1 [id number] [facility] [address] [place] [address] [place] [address] 07/12/2023 13:00:32 07/12/2023 13:41:01 Iron deficiency without anemia 639252645 E61.1 [id number] MARGARITA WAITE NP Sud[facility] [address] [place] [address] [place] [address] 09/30/2023 09:22:21 09/30/2023 09:59:40 Iron deficiency without anemia 069079298 E61.1 [id number] DO VASILE GUERRERO [facility] [address] [place] [address] 12/23/2023 07:54:24 12/23/2023 08:28:16 Low back pain 213886995 M54.50 Hip pain 68319705 M25.55 9 Trochanter ic bursitis of left hip 1717847699 19966 M70.62 [id number] [facility] [address] [place] [address] [place] [address] 12/30/2023 09:37:04 12/30/2023 10:24:04 Iron deficiency without anemia 557734242 E61.1 Joint pain 71134122 M25. 50 Fatigue 47596528 R53.83 [id number] MD VASILE PAEZ [facility] [address] [place] [address] Dr [place] JAKY [address] 03/27/2024 13:41:08 03/27/2024 14:11:37 Iron deficiency anemia 30094198 D50.9 Abdominal pain 01547260 R10.9 [id number] [facility] [address] [place] [address] JAK[place] Rico [address] 04/20/2024 10:25:17 04/20/2024 11:13:36 Iron deficiency anemia 24111500 D50.9 Abdominal pain 43305442 R10.9 [id number] [facility] [address] [place] [address] JAK[place] Rico [address] 06/22/2024 09:31:00 06/22/2024 10:03:44 Iron deficiency anemia 72036003 D50.9 Health Concerns Section Related Observation LastModified by Organization Detai ls LastModified Time None Recorded Concern Status LastModified by Organization Details LastModified Time None Recorded Advance Directives Directive N: Payers Encounter Date Sequence Insurance Name Policy Number Policy Mead Covered Member ID Mead Member ID Guarantor Name 12/23/2023 1 [place] [id number] 3 [facility] [id number] 25 Bridget Gomez 12/30/2023 1 [place] [id number] 3 [facility] [id number] Bridget Gomez 03/27/2024 1 [place] [id number] 3 [facility] [id number] 25 Bridget Gomez 04/20/2024 1 [place] [id number] 3 [facility] [id number] 25 Bridget Gomez 06/22/2024 1 [place] [id number] 3 [facility] [id number] 25 Bridget Gomez Notes Date Note Type Note Provider Name and Address Organization Details Recorded Time 12/23/2023 text/html Pt is here for chronic lower back pain of about 2 years. She was referred to Dr. Robertson in Sep 2023. She did not go. She reports she never heard anything from them. She is also reporting mariza hip pain with no groin pain. Possible bursitis?. She has a cannabis card. She had PT for back in the past. She reports this was not effective. Getting pelvis and back Xrays today-Taking naproxen and flexeril for pain-E3SF RYLEE CRUZ DO [address] [place] [address],[address], [place], [address], [place] - [facility] - [place] & [place] 12/26/2023 12:27:23 12/30/2023 text/html 43-year-old martina worrell who came in today for follow-up visit. Patient has been followed by Dr. Migel Navas for iron-deficiency anemia and she was last seen on December 2022. Patient has history of lap band in June 2014. She then underwent subsequent lap band revision on July 22, 2020 with removal and replacement of the subcutaneous port component. In 2021, the patient was noted to have issues with iron-deficiency anemia. She was started on iron supplementation without any significant improvement in her iron-deficiency. She had been prescribed Ferrex b.i.d. the patient does note some intermittent bright red blood per rectum. She has felt that this is most likely related to internal hemorrhoid related to chronic constipation. Patient had been referred to GI for further evaluation and consideration of colonoscopy. She does have relatively irregular menstrual bleeding that lasts for approximately 2-7 days.-lab from October 12, 2021. CBC showed hemoglobin 12.0 with MCV of 76. White blood cell count was slightly elevated to 11.9 with ANC of Nine thousand six hundred. Iron studies showed iron 24, TIBC 315 with iron saturation of 8%. Patient received single dose of INFeD With clinical improvement. Repeated laboratory evaluation shows improvement in hemoglobin as well as ferritin level.- patient returns on April 07 2023 for follow-up visit. She reports persistent weakness and feeling exhausted all the time. She craves ice. She denies any weight loss, fever or chills. She continues to have rectal bleeding whenever she goes to the bathroom. Her menstrual periods last 3-4 days every 28 days.- from March 30, 2023 TIBC 308, serum iron 30, transferrin saturation 10%, WBC 6.8, hemoglobin 12.1, MCV 78, platelet count 232. Vitamin-D level 18.6, hemoglobin A1c 5.1, folate 2.9. Patient presents December 30, 2023 for follow-up regarding iron deficiency. Patient notes she is doing well although she complains of continued fatigue. She denies PICA symptoms. She denies fever, chills, or night sweats. She continues to do well after her hysterectomy. She denies any further rectal bleeding and notes she was told she would not need a colonoscopy for 10 years. MARGARITA WAITE NP [address] [place] [address],[address], [place], [address], [facility] & [place] 01/02/2024 18:18:32 03/27/2024 text/html 43-year-old martina worrell returns to clinic for evaluation of iron-deficiency anemia. Patient has a history of menorrhagia for which she underwent hysterectomy in September and had previously been receiving IV iron. She indicates that she has lupus followed by Rheumatology at and is currently experiencing a flare in her joint pains and intermittent subjective fevers along with fatigue. She endorses pica during the last several months. She denies epistaxis, hemoptysis, hematemesis, melena, hematochezia, hematuria. MAHNAZ VALENCIA MD [address] [place] [address],[address], [place], [address], [facility] & [place] 03/27/2024 14:18:20 04/20/2024 text/html 43-year-old martina worrell returns to clinic for evaluation of iron-deficiency anemia. Patient has a history of menorrhagia for which she underwent hysterectomy in September and had previously been receiving IV iron. She indicates that she has lupus followed by Rheumatology at and is currently experiencing a flare in her joint pains and intermittent subjective fevers along with fatigue. She endorses pica during the last several months. She denies epistaxis, hemoptysis, hematemesis, melena, hematochezia, hematuria. Patient presents April 20, 2024 for follow-up regarding iron deficiency. Patient notes she is doing well although she complains of continued fatigue. She reports cravings for ice. She denies fever, chills, or night sweats. She continues to do well after her hysterectomy. She denies any further rectal bleeding and notes she was told she would not need a colonoscopy for 10 years. MARGARITA WAITE, ANTOINE [address] [facility],[address], [place], [address], [place] - [facility] - [facility] 04/25/2024 16:38:22 OBGyn Episode No OBEpisode recorded.
--- OUTSIDE RECORDS SUMMARY | 2024-06-26 14:25 | XMS_ITS | Continuity of Care Document ---
Author Organization [facility] & [place] [facility] (formerly [facility])[3] Hematology & Oncology Address [address] [place] [address] Care Team Providers Care Bus Person Dishwasher Name Role Phone BRIDGET HARRISON Primary Care Provider [phone] BERNARD VOGT Primary Care Provider [phone] Assessment No assessment recorded. Plan of Treatment Reminders Order Date Submit Date Provider Last Modified By Organization Details Last Modified Time Details Appointments FOLLOW UP 30 2024 10:00A M MARGARITA WAITE NP Not available Not available Not available Lab CBC w/ auto diff 2023 024 [facility] (Registration ), [place], [address], 04/03/2024 04:17:23 iron + TIBC + ferritin, serum 2023 024 [facility] (Registration ), [place], [address], 03/31/2024 16:17:41 transferr in receptor, soluble, serum 2023 024 [facility] (Registration ), [place], [address], 04/03/2024 04:17:24 iron saturatio n, serum 2023 024 [facility] (Registration ), [place], [address], 03/27/2024 14:09:01 Referral None recorded. Procedures None recorded. Surgeries None recorded. Imaging None recorded. Medication Orders None recorded. Patient TargetsNo targets recorded. Patient InstructionsNo instructions recorded. Reason for Referral None Reported. Problems Name Problem SNOMED Code Status Onset Date Resolution Date Notes Provider Name and Address Organization Details Recorded Time Cyst of right ovary 7771621710963 9108 Active 2018 Milton hudson [place] - [facility] - [place] & [place] 3 12:19:18 Chronic obstructive pulmonary disease 00633308 Active 2019 Milton hudson JAK[place] - [facility] - [place] & [place] 3 12:19:18 Leiomyoma 1169842221597 03 Active 2018 Milton hudson JAKY - [facility] - [place] & [place] 3 12:19:18 Constipatio n 63443163 Active 2018 Milton hudson JAKY - [facility] - [place] & [place] 3 12:19:18 Indigestion 763431651 Active 2016 Milton hudson JAKY - [facility] - [place] & [place] 3 12:19:18 Vulval pain 556462466 Active 2021 Milton hudson JAKY - [facility] - [place] & [place] 3 12:19:18 Folic acid deficiency 574476863 Active 2021 Milton hudson [place] - [facility] [place] & [place] 3 12:19:18 Asthma 805804956 Active 2019 Milton [place]udson [place] [facility] [place] 3 12:19:18 Fibromyalgi a 050693362 Active 2016 Milton [place]udson [place] [facility] [place] 3 12:19:18 Syncope 998743330 Active 2016 Milton hudson JAKY - [facility] - [place] & [place] 3 12:19:18 Low back pain 864689079 Active 2021 Milton Rangel [place] - [facility] [place] & [place] 3 12:19:18 Orthostatic hypotension 42272858 Active 2016 Milton R[place] - [facility] [place] & [place] 3 12:19:18 Pain in pelvis 02450284 Active 2018 Milton Rangel [place] - [facility] [place] & [place] 3 12:19:18 Iron deficiency 81799289 Active 2018 Milton hudson [place] - [facility] [place] & [place] 3 12:19:18 Migraine 26486180 Active 2017 Milton hudsonJAKY - [facility] - [place] & [place] 3 12:19:18 Hypertensiv e disorder 70711130 Active 2016 Milton hudsonJAKY - [facility] - [place] & [place] 3 12:19:18 Hypokalemia 71203687 Active 2021 Milton hudson [place] - [facility] [place] & [place] 3 12:19:18 Hyperlipide hector 03234229 Active 2016 Milton Rangel [place] - [facility] [place] & [place] 3 12:19:18 Wheezing 78254223 Active 2019 Milton hudsonJAKY - [facility] - [place] & [place] 3 12:19:18 Occult blood detected in feces 00170055 Active 2021 Milton [place]udson [place] [facility] [place] & [place] 3 12:19:18 Cyst of vulva 38781793 Active 2021 Milton [place]udson [place] [facility] [place] 3 12:19:18 History of bariatric surgical procedure 538991767 Active 2018 Milton hudson [place] [facility] [place] & [place] 3 12:19:18 Nocturnal cough 29124017 Active 2019 Milton [place], [place] [facility] [place] [facility] & [place] 3 12:19:18 Dyspareunia 02796736 Active 2018 Milton [place] [facility] [place] [facility] & [place] 3 12:19:18 Smoker 45315309 Active 2018 Milton [place] [facility] [place] & [place] 3 12:19:18 COVID-19 657432839 Active 2020 Milton [place] [facility] [place] & [place] 3 12:19:18 Suspected COVID-19 598933682 Active 2019 Milton R[place] [facility] [place] [facility] & [place] 3 12:19:18 Uterine leiomyoma 61173401 Active 2018 Milton [place] [facility] [place] [facility] & [place] 3 12:19:18 Iron deficiency anemia 13269963 Active 2022 Milton [place] [facility] [place] [facility] & [place] 3 12:19:18 Labial cyst 292085727 Active Milton R[place] [facility] [place] [facility] & [place] 3 12:19:18 Esophageal dysmotility 004211067 Active 2022 Charles Jorge MD [address] [facility], [place], [address], [place] - [facility] - [facility] & [place] 3 14:35:53 Iron deficiency without anemia 929493052 Active 2022 MARGARITA WAITE NP [address] [facility],[address], [place], [address], [place] [facility] [place] [facility] & [place] 3 10:17:40 Joint pain 37566839 Active 2023 MARGARITA WAITE NP [address] [facility], [place], [address], [place] [facility] [place] & [place] 4 18:18:09 Fatigue 49187733 Active 2023 MARGARITA WAITE NP [address] [place] [address],[address], [place], [address], [place] [facility] & [place] 4 18:18:09 Abdominal pain 34759511 Active 2023 MAHNAZ VALENCIA MD [address] [place] [address],[address], [place], [address], [place] - [facility] & [place] 4 14:07:29 Problem Notes None recorded. Procedures Surgical History Date Name Laterality Status Provider Name and Address Organization Details Recorded Time 06/22/20 24 Venipuncture completed Radha Jackson [place] [facility] [place] 06/22/2024 10:11:17 08/08/19 24 Date of Last Pap Smear completed Marie Lal [place] [facility] [place] & [place] 09/30/2023 09:33:55 08/08/19 24 Budget Director Surgery completed Marie Claytons [place] [facility] [place] & [place] 09/30/2023 09:35:11 06/08/20 23 Date of Last Colonoscopy completed Marie STAR[place] - [facility] - [place] & [place] 09/30/2023 09:33:55 05/17/20 23 EGD/Endoscopy completed Milton STARKEY - [facility] - [place] & [place] 05/31/2023 13:57:35 05/08/20 23 completed Marie Lal [place] [facility] & [place] 09/30/2023 09:33:55 08/08/19 22 Budget Director Surgery completed Milton STARKEY - [facility] - [place] & [place] 05/30/2023 12:43:54 08/08/19 20 maintenance of gastric band completed Milton STARKEY - [facility] & [place] 04/25/2023 15:33:56 08/08/19 17 laparoscopic adjustable gastric banding completed Milton STARKEY - [facility] - [place] & [place] 04/25/2023 15:33:36 08/08/19 07 Other completed Milton FRANCISCO [facility] & [place] 05/31/2023 13:58:12 08/08/19 05 section completed Milton FRANCISCO [facility] & [place] 04/25/2023 15:33:12 08/08/19 05 Abdominal Surgery completed Milton FRANCISCO [facility] & [place] 05/30/2023 12:43:54 08/08/19 02 Dilation and Curettage completed Milton FRANCISCO [facility] & [place] 04/25/2023 15:33:23 01/06/19 69 Most Recent Bone Density completed Marie FRANCISCO [facility] & [place] 09/30/2023 09:33:55 resection of polyp completed Milton FRANCISCO [facility] & [place] 04/25/2023 15:34:32 extraction of wisdom tooth completed Milton FRANCISCO [facility] & [place] 04/25/2023 15:35:11 Imaging Results None recorded. Procedure Notes None recorded. Medical Equipment None Reported. Allergies Allergen ID Allergen Name Allergen Category Reaction Reaction Severity Criticality Documentation Date Start Date Code Code System Note Provider Name and Address Organization Details Recorded Time 65675 Claritin- D medicatio n Not available Not available Not available 04/07/20232007 84806 6 RxNorm JAKY Urias [facility] & [place] 3 14:52:00 39346 chlorphen iramine medicatio n dyspnea moderate Not available 05/31/20232021 2400 RxNorm JAKY Magana [facility] & [place] 12:19:34 31416 phenylpro panolamin e medicatio n dyspnea moderate Not available 05/31/20232021 8175 RxNorm JAKY Magana [facility] & [place] 3 12:19:34 Medications Name Sig Start Date [...] Available Not Available Not Available Lamar Canales C spacer 05/11 completed Not Available Not Available [...] Not Available Vitals Date Recorded Body height Body mass index (BMI) Body weight Body temperature Oxygen saturation Oxygen saturation in Arterial blood by Pulse oximetry Heart rate Systolic blood pressure Diastolic blood pressure Provider Name and Address Organization Details Last Updated DateTime 4 162.56 cm 33.5 kg/m2 55097.2 3 g 98.2 [degF] 100 % 100 % 78 /min 141 mm[Hg] 78 mm[Hg] Geno Rios [facility] & [place] 4 13:49:26 Social History Question Answer Notes LastModified by Organizat ion Details LastModified Time Tobacco Smoking Status Former Smoker [facility] [place] 04/25/2023 15:31:36 Do You Have An Advance [...] Of Your Most Recent Tobacco Screening? 04/20/2024 [email or web address] Information not available 04/20/2024 Are You Passively Exposed To Smoke? Yes Information not available 05/30/2023 Do You Or Have You Ever Used Smokeless Tobacco? Never Used Smokeless Tobacco Information not available 05/30/2023 How Much Tobacco Do You Smoke? 0.5 PPD Information not available 05/30/2023 Do You Feel Stressed (tense, Restless, Nervous, Or Anxious, Or Unable To Sleep At Night)? [id number] Information not available 05/30/2023 Do You Use Any Illicit Or Recreational Drugs? Yes Information not available 04/25/2023 How Many Years Have You Smoked Tobacco? 20 [email or web address] Information not available 12/30/2023 Have You Used IV Drugs? No Information not available 05/31/2023 Sex: Unknown Functional Status Question Answer Note LastModified by Organization D etails LastModified Time What is your exercise level? None [email or web address] Information not available 12/30/2023 Mental Status None [...] Cancer N Kidney Stones N Hyperthyroidism N Depression N COPD Y Lung Disease Y Hypothyroidism N Diverticulitis/Diverticulosis N Anxiety Disorder N Obesity Y Arthritis N Cancer N Stroke N Liver Disease N Psychiatric/Mental Health Condition Y Headaches Y Kidney Disease N Kidney or Bladder Problems Y Osteoporosis/Osteopenia N Anemia Y Colon Polyps N Diabetes N Bleeding Disorder N Seizures/Epilepsy N Tuberculosis N Hyperlipidemia N Back Problems Y Asthma Y Lupus Y Reflux/GERD Y Sleep Apnea N GERD/Reflux N Hepatitis N Cirrhosis N Heart Disease N Hypertension Y Gynecological History Statement/Question Response Abnormal Pap [...] virus, quadrivalent, preservative 05/08/2020 completed Not Available [facility] 05/18/2023 01:43:07 Influenza, split virus, quadrivalent, preservative 05/25/2019 completed Not Available [facility] 05/18/2023 01:43:07 Influenza, split virus, quadrivalent, preservative 06/05/2018 completed Not Available [facility] 05/18/2023 01:43:07 Influenza, split virus, quadrivalent, preservative 06/05/2021 completed Not Available [facility] 05/18/2023 01:43:08 Influenza, split virus, quadrivalent, preservative 06/08/2017 completed Not Available [facility] 05/18/2023 01:43:08 COVID-19 vaccine, vector-nr, [id number], PF, 0.5 mL 04/01/2021 completed Not Available [facility] 05/18/2023 01:43:08 influenza, unspecified formulation 05/15/2013 completed Not Available [facility] 05/18/2023 01:43:08 influenza, unspecified formulation 05/22/2015 completed Not Available [facility] 05/18/2023 01:43:08 influenza, unspecified formulation 05/24/2014 completed Not Available [facility] 05/18/2023 01:43:08 influenza, unspecified formulation 06/20/2012 completed Not Available [facility] 05/18/2023 01:43:08 Tdap 05/18/2011 completed Not Available [facility] 01:43:08 Tdap 07/13/2019 completed Not Available [facility] 01:43:08 Influenza, split virus, trivalent, PF 06/20/2012 completed Not Available [facility] 05/18/2023 01:43:08 Hep A, adult 09/04/2018 completed Not Available [facility] 05/18/2023 01:43:08 Hep A, adult 05/25/2019 completed Not Available [facility] 05/18/2023 01:43:08 influenza, unspecified formulation 05/08/2022 completed Not Available [facility] 05/18/2023 01:43:08 influenza, unspecified formulation 05/10/2023 completed JAKY Magana - [facility] & [place] 05/31/2023 12:23:17 Past Encounters Encounter ID Performer Location Encounter Start Date Encounter Closed Date Diagnosis/Indication Diagnosis SNOMED-CT Code Diagnosis ICD10 Code [id number] MAHNAZ VALENCIA MD [facility] [address] [place] [id number] 03/27/2024 13:41:08 03/27/2024 14:11:37 Iron deficiency anemia 48100962 D50.9 Abdominal pain 58459982 R10.9 Health Concerns Section Related Observation LastModified by Organization Detai ls LastModified Time None Recorded Concern Status LastModified by Organization Details LastModified Time None Recorded Payers Encounter Date Sequence Insurance Name Policy Number Policy Mead Covered Member ID Maed Member ID Guarantor Name 03/27/2024 1 [place] [id number] [facility] [id number] [facility] Notes Date Note Type Note Provider Name and Address Organization Details Recorded Time 03/27/2024 text/html 43-year-old martina worrell returns to [...] hematemesis, melena, hematochezia, hematuria. MAHNAZ VALENCIA MD [address] [facility],[address], [place], [address], [facility] - [place] & [place] 03/27/2024 14:18:20 OBGyn Episode No OBEpisode recorded.
[2024-06-26 14:35] VITALS: BP 161/74; PULSE 87; RESP 16; TEMP 36.6; O2SAT 100; BMI 34.0
[2024-06-26 15:08] VITALS: BP 150/90; PULSE 87; RESP 18; O2SAT 99
[2024-06-26] MEDS: LIDOCAINE 1% 5ML PF VIAL 5 ML (15:08)
[2024-06-26] MEDS: methylPREDNISolone ACETATE 80MG/ML VIAL 80 MG (15:08)
[2024-06-26] MEDS: BUPIVACAINE 0.25% 10ML INJ 25 MG IJ (15:08)
[2024-06-26 15:10] VITALS: BP 150/90; PULSE 87; RESP 18; O2SAT 99
--- NOTE | 2024-06-26 15:17 | P.PCN_ITS ---
Procedure Date: 06/26/24 Time: 15:20 Anesthesiologist:: Jenaro Stubbs CRNA Complications:: None Pre-procedure Diagnosis:: Bilateral sacroiliitis Post-procedure Diagnosis:: Same Indications for Procedure:: Patient is a pleasant 43-year-old female comes our clinic today for bilateral sacroiliac joint injections of cortisone and local anesthetic. Patient describes low lumbar back pain off the midline bilaterally. Bilateral posterior hip pain. Difficulty transitioning from sitting to standing. Difficulty with ambulation. Difficulty sitting while driving a vehicle. She rates her pain 7/10. Procedure Details:: Procedure: Bilateral sacroiliac joint injections under fluoroscopy Informed consent was obtained and the risks and benefits of the procedure were explained to the patient.~ The patient was taken to the procedure room and no ninvasive monitors were placed including a noninvasive blood pressure cuff and pulse oximeter.~ The patient was placed prone on the procedure table. Both hips were cleansed using Betadine as a cleansing solution. C-arm fluoroscopy was used to view the right sacroiliac joint.~ The skin and subcutaneous tissues were anesthetized using lidocaine 1.5% and a 25-gauge needle.~ After this, a 22-gauge spinal needle was inserted under fluoroscopic guidance into the inferior aspect of the right sacroiliac joint.~ Omnipaque dye was injected and good spread was seen throughout the joint.~ After this, approximately 5 mL of bupivacaine, 0.25% and Depo-Medrol, 40 mg was incrementally injected into the right sacroiliac joint. We then moved to the left sacroiliac joint.~ The skin and subcutaneous tissues w ere anesthetized using lidocaine 1.5% and a 25-gauge needle.~ After this, a 22- gauge spinal needle was inserted under fluoroscopic guidance into the inferior aspect of the left sacroiliac joint.~ Omnipaque dye was injected and good spread was seen throughout the joint. After this, approximately 5 mL of bupivacaine, 0.25% and Depo-Medrol, 40 mg was incrementally injected into the left sacroiliac joint.~ The patient tolerated the procedure well with no complications. The patient was observed in the Pain Clinic and then was discharged home neurologically intact. Plan and Disposition:: Patient was discharged without incident.
[2024-06-26 15:23] VITALS: BP 158/90; PULSE 90; RESP 16; O2SAT 99
== END 2024-06-26 15:23 | disposition home or self-care (01) ==
PROVIDERS: PCP Family Medicine; Visit Provider Nurse Anesthetist, Certified Registered
DX: M46.1 Sacroiliitis, not elsewhere classified (principal)
CPT/HCPCS: 27096; G0260; J1010

== ENCOUNTER 2024-07-20 07:42 | Day surgery (SDC) | payer BC, SELFPAY ==
[2024-07-20 08:37] VITALS: BP 125/80; PULSE 72; RESP 16; TEMP 36.6; O2SAT 100; BMI 33.6
[2024-07-20] MEDS: CEFAZOLIN SODIUM 1 GM in 0.9 % SODIUM CHLORIDE 50 ML IV (10:04)
[2024-07-20] MEDS: LIDOCAINE 1% 30ML PF VIAL 30 ML (10:04)
[2024-07-20] MEDS: FENTANYL 100MCG/2ML VIAL 100 MCG (10:05)
[2024-07-20 10:06] VITALS: BP 139/88; PULSE 59; RESP 18; O2SAT 100
[2024-07-20 10:07] VITALS: BP 139/88; PULSE 60; RESP 18; O2SAT 100
[2024-07-20 10:23] VITALS: BP 143/90; PULSE 70; RESP 16; O2SAT 100
[2024-07-20] MEDS: diphenhydrAMINE 25MG CAPSULE 25 MG PO (10:32)
[2024-07-20 10:41] VITALS: BP 151/99; PULSE 68; RESP 16; O2SAT 97
--- NOTE | 2024-07-20 11:08 | EXP.PAIN.PRO ---
Procedure Date: 07/20/24 Time: 11:08 Anesthesiologist:: Diogenes Robertson MD Complications:: None Pre-procedure Diagnosis:: Degenerative disease of lumbar spine with lumbar radiculopathy symptoms Post-procedure Diagnosis:: Same Indications for Procedure:: This patient's pleasant 43-year-old white female who we are treating for low back pain with lumbar radiculopathy symptoms. She has increasing pain in her back radiating to both hips and both legs. She has had an MRI within the last year. She has seen 2 neurosurgeons both of which have said she is not an operative candidate. She has failed all previous conservative treatments including injections, oral medications, physical therapy. She has had a successful psychological evaluation. She presents for intrathecal pump trial today. Procedure Details:: Pain pump trial Informed consent was obtained and the risk and benefits of the procedure was explained to the patient. The patient was taken to the procedure room and placed prone on the procedure table. Patient was prepped and draped in sterile fashion. C-arm fluoroscopy was used to view the lumbar spine. The skin and subcutaneous tissues were anesthetized using lidocaine. I placed a 18-gauge spinal needle into the L4-5 interspace and advanced until clear CSF was obtained. After this intrathecal catheter was inserted and advanced very easily to the L1 vertebral body. The needle was withdrawn. We were able to freely withdraw clear CSF through the catheter. We then injected intrathecal opiate single shot bolus of 25 mcg followed by saline and followed by the previous CSF that was withdrawn. The needle and catheter were then removed and a Band-Aid was placed. Patient tolerated the procedure well with no complications. We reevaluated the patient after 30 minutes to 1 hour. She had 90 to 100% relief in pain symptoms. She was more functional. She is walking better standing better. By all indications this did seem to be a successful intrathecal pump trial. We will follow-up with her in 1 week to assess efficacy of this trial. If successful we will plan on permanent placement with intrathecal morphine 1 mg/mL to start at 100 mcg/day. Catheter tip will be at the T8 vertebral body. Catheter entry will be at L4-L5 Plan and Disposition:: Will follow-up with this patient in 1 week will evaluate efficacy of this trial. Will reevaluate symptoms at that time.
[2024-07-20 11:38] VITALS: BP 147/94; PULSE 73; RESP 16; O2SAT 100
--- NOTE | 2024-07-20 14:22 | EXP.OP.NOTE ---
Date of procedure: 07/20/24 Pre-op Diagnosis:: Degenerative disc disease of the cervical spine with cervical radiculopathy symptoms Post-op Diagnosis:: Same Procedure performed:: Permanent placement spinal cord stimulator with epidural lead placement x 2 and stimulator generator placement Surgeon:: Diogenes Robertson MD CLINICAL SECRETARY:: Ramon Kaba Anesthesia: MAC Estimated blood loss (mL): 5 Clinical Note:: This patient is a pleasant
== END 2024-07-20 11:38 | disposition home or self-care (01) ==
PROVIDERS: PCP Family Medicine; Visit Provider Anesthesiology
DX: M51.16 Intervertebral disc disorders with radiculopathy, lumbar region (principal)
CPT/HCPCS: 62323; J0690; J1200; J3010

== ENCOUNTER 2024-07-27 15:46 | Outpatient (POV) | payer BC, SELFPAY ==
[2024-07-27 15:55] VITALS: BP 161/97; PULSE 97; RESP 16; O2SAT 99; BMI 34.7
--- NOTE | 2024-07-27 16:11 | A.OFFVIS_ITS ---
[facility] Disclaimer: The information contained in this section may have been updated after the patient was seen, as this information can be updated by other users. Medical History Encounter for adjustment of gastric lap band Depression Anxiety HLD (hyperlipidemia) Chronic urinary tract infection Iron deficiency HTN (hypertension) Asthma COPD (chronic obstructive pulmonary disease) Migraines Fibromyalgia Surgical History H/O: hysterectomy H/O dilation and curettage H/O removal of cyst Previous section Family History Other Breast cancer Cardiovascular disease Hypertension Lung cancer Lupus Osteoporosis Social History Smoking Status: Current every day smoker alcohol intake: never substance use type: denies use current occupational status: other Travel in the last 8 weeks: None Have you lived/traveled outside [place] in past 30 days?: No Contact w/someone who lives/traveled outside US past 30 days?: No Exposure to someone with infectious disease in past 14 days?: No Do you have a fever (greater than 100.4 F or 38 C)?: No Have you tested positive for COVID-19: No Exposed to someone with COVID-19 in past 14 days?: No Do you have a sore throat?: No Do you have a cough?: No Do you have any weakness?: No Do you have any diarrhea?: No Are you experiencing any unusual bleeding?: No Do you have any muscle aches/pain?: No Do you have any abdominal pain?: No Are you experiencing loss of taste or smell?: No PM Subjective & Objective Subjective Subjective:: Patient is a pleasant 43-year-old female who presents today for her follow-up of her intrathecal pain pump trial on 07/20/2024. Today she rates her pain a 2 out of 10. She states that she had at least 100% relief following this procedure and that it worked wonderful. Patient states that she has not felt that great for some time. She does state that she was able to write presents and actually go out and shop as well as run errands. Patient felt much more functional. She does state that she felt like it lasted more than 24 hours. Patient has tried and failed conservative therapy including continued at home stretching exercise for longer than 12 weeks. Her Gabriel has been reviewed and is appropriate. Review of Systems: General: No recent weight changes, no fever, no sleep disturbances Respiratory: No cough, no shortness of air, no recurring pulmonary infections Cardiovascular/peripheral vascular: No chest pain, no palpitations, no edema, no shortness of breath Gastrointestinal: No new onset incontinence, normal bowel movements reported Genitourinary: No new onset incontinence Musculoskeletal: Chronic low back pain Psychiatric: [Normal mood/affect] Neurological: [Denies weakness in extremities], [denies balance issues] Pain at rest (0-10 scale): 2 Objective Objective:: Physical Exam: General: Alert and oriented x3, no acute distress, pleasant and cooperative Lungs: Respirations even and unlabored, symmetrical chest expansion Eyes: PERRL Musculoskeletal: Flexion and extension of lumbar[spine] somewhat guarded second monserrat to pain, [antalgic gait noted] Neurological: Speech clear, no gross sensory deficit Has patient had previous pain injection?: Yes Percent improvement in pain since last injection: 100% for 24 hours Conservative treatment options previously tried: Home exercise plan Length of treatment: Longer than 12 weeks Meds Home Medications and Allergies Home Medications ?Medication ?Instructions ?Recorded ?Confirmed ?Type amitriptyline 10 mg tablet 10 mg PO DAILY 10/26/17 07/27/24 History biotin 1 mg tablet 1 mg PO DAILY 10/26/17 07/27/24 History cyclobenzaprine 5 mg tablet 5 mg PO BID 10/26/17 07/27/24 History docusate sodium 100 mg capsule 100 mg PO QHS 10/26/17 07/27/24 History (Colace) hydrochlorothiazide 12.5 mg capsule 12.5 mg PO QAM 10/26/17 07/27/24 History naproxen 500 mg tablet 500 mg PO Q12H PRN Pain 10/26/17 07/27/24 History prenat.vits,tyrone,nci-mkwf-jrsbb 1 tab PO QHS 10/26/17 07/27/24 History ranitidine HCl 150 mg tablet 150 mg PO BID PRN GERD 10/26/17 07/27/24 History (Zantac) sumatriptan succinate 50 mg tablet 50 mg PO Q2H PRN MIGRAINES 10/26/17 07/27/24 History (Imitrex) New Prescriptions to Start Prescriptions: Allergies Allergy/AdvReac Type Severity Reaction Status Date / Time No Known Allergies Allergy Verified 10/26/17 10:39 Assessment and Plan *Assessment and plan (1) Degenerative disc disease, lumbar: Status: Acute Category: Medical Code(s): M51.369 - Other intervertebral disc degeneration, lumbar region without mention of lumbar back pain or lower extremity pain (2) Bilateral sacroiliitis: Status: Acute Category: Medical Code(s): M46.1 - Sacroiliitis, not elsewhere classified (3) Chronic pain syndrome: Status: Acute Category: Medical Code(s): G89.4 - Chronic pain syndrome Plan Patient has had significant improvement following her intrathecal pain pump trial with 100% relief lasting more than 24 hours. Patient did have improved function with decreased pain overall. I did discuss with the patient the risk and benefits of intrathecal implant and she would like to proceed forward with this plan of care. Patient is not on any blood thinners. Patient has tried and failed conservative therapy including oral medications, heat and ice, topicals, at home stretching exercise for longer than 12 weeks. Patient has also been tried on oral [place] and Percocet in the past along with other oral muscle relaxers and medications. Patient will be scheduled for intrathecal pain pump implant under fluoroscopy. Patient has also passed a psychological evaluation was deemed an appropriate candidate for this device. We do have a active drug agreement on file and patient has been compliant in her care here at our office. Patient has been instructed to contact the clinic with any concerns before the next appointment. Dr. Robertson has reviewed this note and agrees with this plan of care. This note was dictated using voice recognition software and make contain errors or omissions. All injections are used with Lidocaine, Bupivacaine and Depo Medrol. Occasionally urine drug screen is needed to verify patient's compliance with our office pain contract. This is ordered based off specific treatments related to chronic pain with the potential to abuse certain medications.
== END 2024-07-27 23:59 | disposition home or self-care (01) ==
LOC: SC.PAIN 15:47
PROVIDERS: PCP Family Medicine; Visit Provider Nurse Practitioner Family
DX: M51.369 Other intervertebral disc degeneration, lumbar region without mention of lumbar back pain or lower extremity pain (principal); M46.1 Sacroiliitis, not elsewhere classified; G89.4 Chronic pain syndrome; F17.210 Nicotine dependence, cigarettes, uncomplicated
CPT/HCPCS: 99212; G0463

== ENCOUNTER 2024-10-12 08:45 | Outpatient (CLI) | payer OTHER, SELFPAY ==
[2024-10-12 10:08] VITALS: BMI 36.3
[2024-10-12 10:15] LABS: Basophils # 0.1 K/mm3 (0-0.2); Basophils % 1.2 % (0.1-2.0); Eosinophils # 0.5 K/mm3 (0.0-0.4); Eosinophils % 7.2 % (0.1-12.0); Hematocrit 38.2 % (37.0-47.0); Hemoglobin 12.6 g/dL (12.2-16.2); Lymphocytes # 1.1 K/mm3 (0.7-4.5); Lymphocytes % 16.2 % (10-50); Mean Corpuscular Hemoglobin 26.6 pg (27.0-31.2); Mean Corpuscular Volume 80.6 fl (81-99); Mean Platelet Volume 11.8 fl (7.4-10.4); Monocytes # 0.5 K/mm3 (0.1-1.0); Monocytes % 7.2 % (1.7-9.3); Neutrophils # 4.4 K/mm3 (1.8-7.8); Neutrophils % 67.4 % (37.0-80.0); Platelet Count 226 K/mm3 (142-424); Red Blood Count 4.74 M/mm3 (4.20-5.40); Red Cell Distribution Width 13.4 % (11.5-17.5); White Blood Count 6.5 K/mm3 (4.8-10.8)
[2024-10-12 10:27] LABS: Anion Gap 12.6 mEq/L (5-15); Blood Urea Nitrogen 6 mg/dl (7-17); Calcium 9.2 mg/dl (8.4-10.2); Carbon Dioxide 30 mmol/L (22.0-30.0); Chloride 95 mmol/L (98-107); Creatinine Clearance Estimated 159 mL/min (50-200); Estimated Glomerular Filt Rate 92 ml/min (>60); GFR (African American) 111 ML/MIN (>60); Glucose 95 mg/dl (74-100); Potassium 3.6 mmoL/L (3.5-5.1); Sodium 134 mmol/L (136-145)
== END 2024-10-12 23:59 | disposition home or self-care (01) ==
LOC: PREOP 08:46
PROVIDERS: Nurse Anesthetist, Certified Registered; PCP Family Medicine; Visit Provider Anesthesiology
DX: Z01.812 Encounter for preprocedural laboratory examination (principal)
CPT/HCPCS: 80048; 85025

== ENCOUNTER 2024-10-19 06:57 | Day surgery (SDC) | payer OTHER, SELFPAY ==
[2024-10-12 10:41] VITALS: BMI 36.3
[2024-10-19] VITALS (11 sets, daily range): BP systolic 122–159; BP diastolic 66–95; PULSE 71–101; RESP 16–18; TEMP 36.1–36.6; O2SAT 93–100
[2024-10-19] MEDS: LACTATED RINGERS 1000ML 1,000 ML 25 ML IV (07:27)
--- NOTE | 2024-10-19 07:46 | P.PNANES_ITS ---
[facility] Disclaimer: The information contained in this section may have been updated after the patient was seen, as this information can be updated by other users. Medical History Lupus Encounter for adjustment of gastric lap band Depression Anxiety HLD (hyperlipidemia) Chronic urinary tract infection Iron deficiency HTN (hypertension) Asthma COPD (chronic obstructive pulmonary disease) Migraines Fibromyalgia Surgical History History of surgery Hx of laparoscopic gastric banding H/O: hysterectomy H/O dilation and curettage H/O removal of cyst Previous section Family History Other Breast cancer Cardiovascular disease Hypertension Lung cancer Osteoporosis Social History Smoking Status: Former smoker alcohol intake: never substance use type: denies use current occupational status: employed and other Travel in the last 8 weeks: None Have you lived/traveled outside US in past 30 days?: No Contact w/someone who lives/traveled outside US past 30 days?: No Exposure to someone with infectious disease in past 14 days?: No Do you have a fever (greater than 100.4 F or 38 C)?: No Have you tested positive for COVID-19: No Exposed to someone with COVID-19 in past 14 days?: No Do you have a sore throat?: No Do you have a cough?: No Do you have any weakness?: No Do you have any diarrhea?: No Are you experiencing any unusual bleeding?: No Do you have any muscle aches/pain?: No Do you have any abdominal pain?: No Are you experiencing loss of taste or smell?: No [facility] Anesthesia Checklist Patient Identification Patient Identification: Arm Band Structural Data Admitted From: Home Planned Operative Procedure/s: Intrathecal Pain Pump Placement Consent for Planned Operative Procedure(s) Verified: Yes Verified Documents: Surgical Consent and History and Physical NPO Status Verified Time NPO: 00:00 Additional verifications Anesthesia Reactions: No Hx Blood Transfusions: No Blood Transfusion Reaction: No Airway Assessment Mallampati Score:: Class II C-Spine Mobility Assessed: Yes TMJ Mobility Assessed: Yes Dentition: Good Dentition Neurological Assessment Level of Consciousness: Awake, Alert and Appropriate Anesthesia Plan Anesthesia Risk discussed: Yes Anesthesia Plan: Verified ASA Class: II Anesthesia Type: MAC
[2024-10-19] MEDS: VANCOMYCIN/WATER FOR INJ (PEG) 1.5 GM/300 ML PIGGYBACK IV (08:12)
[2024-10-19] MEDS: LIDOCAINE 1% W/EPI 1:100,000 20ML VIAL 40 ML (10:08)
[2024-10-19] MEDS: SODIUM CHLORIDE 0.9% 20ML VIAL 40 ML IV (10:09)
[2024-10-19] MEDS: GENTAMICIN 80 MG/2 ML VIAL (10:10)
--- NOTE | 2024-10-19 10:47 | P.OP_ITS ---
Date of procedure: 10/19/24 Pre-op Diagnosis:: Degenerative disease of lumbar spine with lumbar radiculopathy symptoms Post-op Diagnosis:: Same Procedure performed:: Permanent placement intrathecal pain pump with tunneled intrathecal catheter and pain pump generator placement Surgeon:: Diogenes Robertson MD CAR ATTENDANT:: Malik Ruiz Anesthesia: MAC Estimated blood loss (mL): 5 Clinical Note:: This patient is a pleasant 43-year-old white female who we are treating for low back pain with lumbar radiculopathy symptoms. She has failed all previous conservative treatments including injections, oral medications, physical therapy and she is not a candidate for surgery. She had a successful psychological evaluation and a successful intrathecal pump trial. She presents for permanent placement of her intrathecal pain pump today. Operative findings:: None Operative note:: Informed consent was obtained risk and benefits of the procedure were explained to the patient. The patient was taken the operating room placed prone on the procedure table. She was prepped and draped in sterile fashion. C-arm fluoroscopy was used to view the right flank. [facility] between the 12th rib and iliac crest the skin and subcutaneous tissues were anesthetized using lidocaine. I made an incision and dissected out the pain pump generator pocket. C-arm fluoroscopy was then used to view the lumbar spine. The skin and subcutaneous tissues adjacent to the L4-5 and L5-S1 interspace were anesthetized using lidocaine. I made an incision dissected down to the lumbar paraspinous fascia. A 17-gauge spinal needle was inserted and advanced into the L4-5 interspace until clear CSF was obtained. After this intrathecal catheter was inserted and advanced very easily to the T8 vertebral body. The stylette of the catheter and the needle were withdrawn. The catheter was secured to the fascia with an anchor device and 2-0 Prolene. I filled the pump with 20 mL of intrathecal morphine 1 mg/mL. I tunneled the catheter from the back to the generator pocket. I attached catheter to the generator. We were able to freely withdraw clear CSF through the sideport. The pump was then placed in the pocket with an antibiotic pouch. Both incisions were closed with 2-0 Vicryl followed by 4-0 nylon and pramod. An abdominal binder was placed. The patient was brought to recovery in stable condition. The patient tolerated the procedure well with no complications. Patient was discharged home neurologic intact with good relief of pain symptoms. Pump was started at 100 mcg/day of intrathecal morphine. Plan and disposition: Will follow-up with this patient in 1 week for wound check and reprogram. Will follow-up in 2 to 3 weeks for suture and staple removal. Condition: stable Disposition: PACU Complications:: None
--- NOTE | 2024-10-19 10:50 | P.PNANES_ITS ---
[facility] Anesthesia Record Part I Anesthesia Record I Intake, IV Amount: 900 Hydration: Adequate Estimated blood loss (mL): 5 Urine output (mL): 0 Blood Products used (#): none Blood Pressure: 159/93 SaO2: 93 Pulse Rate: 101 Airway Patency: Patent Respiratory Rate: 16 Temperature: 97.8 F Patient is:: Drowsy and Stable Stable to PACU at:: 10:45
--- NOTE | 2024-10-19 15:22 | EXP.ANES.II ---
[facility] Anesthesia Record Part II Anesthesia Record Part II Discharge Time: 11:15 Destination: Surgical Day Care (OP Surgery) PACU nurse assessment reviewed?: Yes Patient Condition:: Good Anesthesia Complications:: None Swallowing reflex intact?: Yes Airway Patency: Patent Cyanosis?: No Blood Pressure: 134/78 SaO2: 97 Respiratory Rate: 16 Pulse Rate: 78 Temperature: 97.8 F Mental Status: Alert & Oriented Pain level:: 0 Nausea and/or vomitting:: None Intake, IV Amount: 0 Hydration: Adequate
== END 2024-10-19 11:56 | disposition home or self-care (01) ==
PROVIDERS: PCP Family Medicine; Visit Provider Anesthesiology
PROC: (CPT 62350; principal; 2024-10-19 08:45)
DX: M51.16 Intervertebral disc disorders with radiculopathy, lumbar region (principal); Z01.818 Encounter for other preprocedural examination
CPT/HCPCS: 62350; 62362; C1755; C1772; J1100; J1580; J1885; J2250; J2405; J3010; J3372; J7120

== ENCOUNTER 2024-10-25 10:14 | Outpatient (POV) | payer OTHER, SELFPAY ==
--- NOTE | 2024-10-25 10:53 | P.PCN_ITS ---
Procedure Date: 10/25/24 Time: 10:53 Anesthesiologist:: Kitty Franks APRN Complications:: None Pre-procedure Diagnosis:: Degenerative disc disease of lumbar spine with lumbar radiculopathy symptoms Post-procedure Diagnosis:: Same Indications for Procedure:: Patient is a pleasant 43-year-old female who presents today for 1 week postop of intrathecal pain pump and catheter placement on 10/19/2024. She rates her pain today a 4 out of 10. She denies any new injuries or falls from her last visit. She states that she already has noticed a significant difference following the pump implant. Patient states that she is having a little bit more pain today on the left side of her low back however believes it is due to the ride over. Patient is driving about an hour and 20 minutes. Patient also states she has had a little bit of itching following this procedure. She denies any other p roblems. Patient is currently managed with morphine 1 mg/mL with a daily dose of 100 mcg/day. She denies any side effects. Her Gabriel has been reviewed and is appropriate. Physical Exam: General: Alert and oriented x3, no acute distress, pleasant and cooperative Lungs: Respirations even and unlabored, symmetrical chest expansion Eyes: PERRL Musculoskeletal: Flexion and extension of lumbar [spine] somewhat guarded secondary to pain, [antalgic gait noted] Neurological: Speech clear, no gross sensory deficit Procedure Details:: Informed consent was obtained and the risk and benefits of the procedure were explained to the patient. Patient did have noninvasive monitoring was placed including noninvasive blood pressure cuff and pulse oximeter. Patient's pump was interrogated and was reprogrammed to morphine 0.1053 mg/day. The patient tolerated the procedure well with no complications. Plan and Disposition:: Patient was counseled to continue her postop restrictions the full 6 weeks including no submerging in water until her incisions are fully healed, minimal bending, lifting or twisting and to continue to use her abdominal binder to prevent seroma formation. Patient tolerated her intrathecal increase today with no complications and was discharged neurologically intact. Patient will return to clinic in 2 weeks for suture and staple removal and was counseled that we will plan for skin glue and Steri-Strips to be applied at that time. Patient agrees with these options. Patient has been instructed to contact the clinic with any concerns before the next appointment. Dr. Robertson has reviewed this note and agrees with this plan of care. This note was dictated using voice recognition software and make contain errors or omissions. -- It Is medically necessary for this patient to continue to have their intrathecal pump refilled at regular intervals. This patient had an intrathecal pain pump implanted after meeting criteria of chronic intractable pain for greater than 3 months and failing conservative treatments. Patient has committed and been compliant to the treatment plan and all planned follow up care. Since implantation of the intrathecal pain pump, the patient has had decreased pain and been more functional. Oral medications have been reduced including intake of oral opioids. Patient continues to do well with intrathecal therapy with decrease in pain symptoms and increase in functional status. Stopping intrathecal medications can lead to life threatening withdrawal, seizures, cardiac arrest, severe pain, and possible . Pumps that are not refilled at regular intervals can be damages and cause and need for replacement. We continually titrate dose and concentration to optimize pain relief and function. We are limited in concentration for certain drugs to safely deliver medications through the pump and stay within the recommendations from the Polyanalges[employer] Consensus Committee Guidelines. Depending on dose and concentration these pumps may need to be refilled sooner than 3 months as we titrate. A UDS is needed to verify patient's compliance with our office pain contract. This is ordered based off specific treatments related to chronic pain with the potential to abuse certain medications.
[2024-10-25 11:04] VITALS: BP 130/88; PULSE 87; RESP 14; O2SAT 99; BMI 38.9
== END 2024-10-25 23:59 | disposition home or self-care (01) ==
PROVIDERS: PCP Family Medicine; Visit Provider Nurse Practitioner Family
DX: M51.16 Intervertebral disc disorders with radiculopathy, lumbar region (principal)
CPT/HCPCS: 62368; 99212; 99213; G0463

== ENCOUNTER 2024-11-08 14:46 | Outpatient (POV) | payer OTHER, SELFPAY ==
[2024-11-08 14:50] VITALS: BP 135/82; PULSE 14; RESP 16; O2SAT 97; BMI 35.4
--- NOTE | 2024-11-08 15:05 | P.PCN_ITS ---
Procedure Date: 11/08/24 Time: 15:26 Anesthesiologist:: Kitty Franks APRN Complications:: None Pre-procedure Diagnosis:: Degenerative disc disease of lumbar spine, bilateral sacroiliitis, chronic pain syndrome Post-procedure Diagnosis:: Same Indications for Procedure:: Patient is a pleasant 44-year-old female who presents today for 2-week follow- up. She does rate her pain today 5 out of 10. She denies any new falls or injuries. She does state overall she is still doing well with her pain pump. She does state that she could use additional adjustment. Patient denies any problems from our last visit with her intrathecal increase. Patient is currently managed with morphine 1 mg/mL with a daily dose of 0.1053 mg/day. She denies any side effects. Her Gabriel has been reviewed and is appropriate. Physical Exam: General: Alert and oriented x3, no acute distress, pleasant and cooperative Lungs: Respirations even and unlabored, symmetrical chest expansion Eyes: PERRL Musculoskeletal: Flexion and extension of lumbar [spine] somewhat guarded secondary to pain, [antalgic gait noted] Neurological: Speech clear, no gross sensory deficit Skin: Incision sites are clean, dry, well-approximated with sutures and pramod intact, minimal erythema noted Procedure Details:: Informed consent was obtained and the risk and benefits of the procedure were explained to the patient. Patient did have noninvasive monitoring was placed including noninvasive blood pressure cuff and pulse oximeter. Patient's pump was interrogated and was reprogrammed to morphine 0.1264 mg/day. The patient tolerated the procedure well with no complications. Plan and Disposition:: Patient was counseled to continue her postop restrictions for 4 to 6 weeks including no submerging in water until her incisions are fully healed, minimal bending lifting twisting, continue to use her abdominal binder to prevent seroma formation. Patient was counseled that we will plan on taking out all of her sutures and pramod today and applying skin glue and Steri-Strips. We were able to take out all of her sutures however a couple of the pramod did remain in place. Patient tolerated her intrathecal increase with no complications and was discharged neurologically intact. Patient will return to clinic in 1 week to remove the remainder of her pramod for reevaluation of symptoms and plan of care. I did discuss with the patient that we will plan on setting her up with her PTM device at that 1 month follow-up. Patient agrees with this plan of care. We will see the patient back in the clinic at the next intrathecal refill. Patient has been instructed to contact the clinic with any concerns before the next appointment. Dr. Robertson has reviewed this note and agrees with this plan of care. This note was dictated using voice recognition software and make contain errors or omissions. -- It Is medically necessary for this patient to continue to have their intrathecal pump refilled at regular intervals. This patient had an intrathecal pain pump implanted after meeting criteria of chronic intractable pain for greater than 3 months and failing conservative treatments. Patient has committed and been com pliant to the treatment plan and all planned follow up care. Since implantation of the intrathecal pain pump, the patient has had decreased pain and been more functional. Oral medications have been reduced including intake of oral opioids. Patient continues to do well with intrathecal therapy with decrease in pain symptoms and increase in functional status. Stopping intrathecal medications can lead to life threatening withdrawal, seizures, cardiac arrest, severe pain, and possible . Pumps that are not refilled at regular intervals can be damages and cause and need for replacement. We continually titrate dose and concentration to optimize pain relief and function. We are limited in concentration for certain drugs to safely deliver medications through the pump and stay within the recommendations from the Polyanalgesic Consensus Committee Guidelines. Depending on dose and concentration these pumps may need to be refilled sooner than 3 months as we titrate. A UDS is needed to verify patient's compliance with our office pain contract. This is ordered based off specific treatments related to chronic pain with the potential to abuse certain medications.
== END 2024-11-08 23:59 | disposition home or self-care (01) ==
PROVIDERS: Visit Provider Nurse Practitioner Family
DX: M51.369 Other intervertebral disc degeneration, lumbar region without mention of lumbar back pain or lower extremity pain (principal); M46.1 Sacroiliitis, not elsewhere classified; G89.4 Chronic pain syndrome
CPT/HCPCS: 62368; 99212; 99213; G0463

== ENCOUNTER 2024-11-15 09:45 | Outpatient (POV) | payer OTHER, SELFPAY ==
[2024-11-15 09:56] VITALS: BP 136/90; PULSE 89; RESP 16; O2SAT 99; BMI 35.4
--- NOTE | 2024-11-15 10:14 | EXP.PAIN.SOA ---
[facility] Disclaimer: The information contained in this section may have been updated after the patient was seen, as this information can be updated by other users. Medical History Lupus Encounter for adjustment of gastric lap band Depression Anxiety HLD (hyperlipidemia) Chronic urinary tract infection Iron deficiency HTN (hypertension) Asthma COPD (chronic obstructive pulmonary disease) Migraines Fibromyalgia Surgical History History of surgery Hx of laparoscopic gastric banding H/O: hysterectomy H/O dilation and curettage H/O removal of cyst Previous section Family History Other Breast cancer Cardiovascular disease Hypertension Lung cancer Osteoporosis Social History Smoking Status: Former smoker alcohol intake: never substance use type: denies use current occupational status: other Travel in the last 8 weeks: None PM Subjective & Objective Subjective Subjective:: Patient is a pleasant 44-year-old female who presents today to have the remainder of her pramod removed and follow-up. Today she rates her pain a 2 out of 10. She denies any new trauma or injury. She does state that she did get better improvement from our last visit where we did increase her pump. Patient is currently managed with morphine 1 mg/mL with a daily dose of 0.1264 mg/day. She denies any side effects. Her Gabriel has been reviewed and is appropriate. Review of Systems: General: No recent weight changes, no fever, no sleep disturbances Respiratory: No cough, no shortness of air, no recurring pulmonary infections Cardiovascular/peripheral vascular: No chest pain, no palpitations, no edema, no shortness of breath Gastrointestinal: No new onset incontinence, normal bowel movements reported Genitourinary: No new onset incontinence Musculoskeletal: Low back pain Psychiatric: [Normal mood/affect] Neurological: [Denies weakness in extremities], [denies balance issues] Pain at rest (0-10 scale): 2 Objective Objective:: Physical Exam: General: Alert and oriented x3, no acute distress, pleasant and cooperative Lungs: Respirations even and unlabored, symmetrical chest expansion Eyes: PERRL Musculoskeletal: Flexion and extension of lumbar [spine] somewhat guarded secondary to pain, [antalgic gait noted] Neurological: Speech clear, no gross sensory deficit Has patient had previous pain injection?: No Conservative treatment options previously tried: Home exercise plan Length of treatment: Longer than 12 weeks Meds Home Medications and Allergies Home Medications ?Medication ?Instructions ?Recorded ?Confirmed ?Type amitriptyline 10 mg tablet 10 mg PO DAILY 10/26/17 11/15/24 History cyclobenzaprine 5 mg tablet 5 mg PO BID 10/26/17 11/15/24 History docusate sodium 100 mg capsule 100 mg PO QHS 10/26/17 11/15/24 History (Colace) hydrochlorothiazide 12.5 mg capsule 12.5 mg PO QAM 10/26/17 11/15/24 History naproxen 500 mg tablet 500 mg PO Q12H PRN Pain 10/26/17 11/15/24 History ranitidine HCl 150 mg tablet 150 mg PO BID PRN GERD 10/26/17 11/15/24 History (Zantac) sumatriptan succinate 50 mg tablet 50 mg PO Q2H PRN MIGRAINES 10/26/17 11/15/24 History (Imitrex) amitriptyline 50 mg tablet 50 mg PO DAILY 10/12/24 11/15/24 History cholecalciferol (vitamin D3) 50 50 mcg PO DAILY 10/12/24 11/15/24 History mcg (2,000 unit) capsule (Vitamin D3) cyclobenzaprine 5 mg tablet 5 mg PO HS 10/12/24 11/15/24 History escitalopram oxalate 5 mg tablet 5 mg PO DAILY 10/12/24 11/15/24 History galcanezumab-gnlm 120 mg/mL 120 mg SQ MONTHLY 10/12/24 11/15/24 History subcutaneous pen injector (Emgality Pen) hydroxyzine HCl 25 mg tablet 25 mg PO HS 10/12/24 11/15/24 History levocetirizine 5 mg tablet 5 mg PO DAILY 10/12/24 11/15/24 History losartan 50 mg tablet 50 mg PO DAILY 10/12/24 11/15/24 History montelukast 10 mg tablet 10 mg PO DAILY 10/12/24 11/15/24 History omeprazole 40 mg capsule,delayed 40 mg PO DAILY 10/12/24 11/15/24 History release phentermine 37.5 mg tablet 37.5 mg PO DAILY 10/12/24 11/15/24 History sulfamethoxazole 800 1 tab PO BID #14 tabs 10/19/24 11/15/24 Rx mg-trimethoprim 160 mg tablet (Bactrim DS) New Prescriptions to Start Prescriptions: Allergies Allergy/AdvReac Type Severity Reaction Status Date / Time No Known Allergies Allergy Verified 10/19/24 07:17 Assessment and Plan *Assessment and plan (1) Chronic pain syndrome: Status: Acute Category: Medical Code(s): G89.4 - Chronic pain syndrome (2) Degenerative disc disease, lumbar: Status: Acute Category: Medical Code(s): M51.369 - Other intervertebral disc degeneration, lumbar region without mention of lumbar back pain or lower extremity pain (3) Bilateral hip pain: Status: Acute Category: Medical Code(s): M25.551 - Pain in right hip; M25.552 - Pain in left hip Plan We were able to remove the remaining pramod and applied skin glue and Steri-Strips. Patient was counseled to continue her postop restrictions the full 6 weeks. Patient will return to clinic in 1 month. We will see the patient back in the clinic at the next intrathecal refill. Patient has been instructed to contact the clinic with any concerns before the next appointment. Dr. Robertson has reviewed this note and agrees with this plan of care. This note was dictated using voice recognition software and make contain errors or omissions. -- It Is medically necessary for this patient to continue to have their intrathecal pump refilled at regular intervals. This patient had an intrathecal pain pump implanted after meeting criteria of chronic intractable pain for greater than 3 months and failing conservative treatments. Patient has committed and been compliant to the treatment plan and all planned follow up care. Since implantation of the intrathecal pain pump, the patient has had decreased pain and been more functional. Oral medications have been reduced including intake of oral opioids. Patient continues to do well with intrathecal therapy with decrease in pain symptoms and increase in functional status. Stopping intrathecal medications can lead to life threatening withdrawal, seizures, cardiac arrest, severe pain, and possible . Pumps that are not refilled at regular intervals can be damages and cause and need for replacement. We continually titrate dose and concentration to optimize pain relief and function. We are limited in concentration for certain drugs to safely deliver medications through the pump and stay within the recommendations from the [employer] Consensus Committee Guidelines. Depending on dose and concentration these pumps may need to be refilled sooner than 3 months as we titrate. A UDS is needed to verify patient's compliance with our office pain contract. This is ordered based off specific treatments related to chronic pain with the potential to abuse certain medications.
--- OUTSIDE RECORDS SUMMARY | 2024-11-15 23:08 | XMS_ITS | Data Portability ---
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 Medication instructions, precautions, and side effects [...] Modified Time Details Appointments None recorded. Lab lipid panel, serum 2022 023 [email or web address] [facility] ([facility], [address] [facility], [place], [address], 18:16:13 potassium, serum or plasma 2022 023 [email or web address] [facility] ([place]), [address] [facility], [place], [address], 3 18:16:13 Hepatitis C IgG Ab, qual, serum 2022 023 RANDOLPH [facility] ([place]), [address] [facility], [place], [address], 3 17:05:30 HIV 1 + 2, meaningful use set 2022 023 RANDOLPH [facility] ([place]), [address] [facility], [place], [address], 3 17:05:29 unlisted lab - biometrics- [id number] 2022 023 RANDOLPH [facility] ([place]), [address] [facility], [place], [address], 3 17:05:26 CMP, serum or plasma 2022 023 R[facility]PH [facility] ([place]), [address] [facility], [place], [address], 3 17:05:25 CBC w/ auto diff 2022 023 [facility] [address] [facility], [place], [address], 3 17:05:24 TSH, ultra-sensi tive, serum 2022 023 RANDOLPH [facility] ([place]), [address] [facility], [place], [address], 3 17:05:28 HbA1c (hemoglobin A1c), blood 2022 023 RANDOLPH [facility] ([place]), [address] [facility], [place], [address], 3 17:05:27 lipid panel, serum 2022 023 [facility]), [address] [place], [address], 3 17:05:25 vitamin B12 + folate, serum or blood 2022 023 [facility]), [address] [place], [address], 3 17:05:26 thiamine, QN, blood 2022 023 [facility]), [address] [place], [address], 3 17:05:30 iron, serum 2022 023 [facility]), [address] [place], [address], 3 17:05:30 vitamin E, serum 2022 023 [facility]), [address] [place], [address], 3 17:05:27 copper, serum or plasma 2022 023 [facility]), [address] [place], [address], 3 17:05:31 zinc, serum or plasma 2022 023 [facility]), [address] [place], [address], 3 17:05:31 vitamin A (retinol), serum 2022 023 [facility]), [address] [place], [address], 3 17:05:28 vitamin D, 25-hydroxy, total, serum 2022 023 [facility] [address] [facility], [place], [address], 3 17:05:29 Referral care management referral [address] Referral Coordinators, 10 [facility] [address], [place], [address], 3 18:11:03 Procedures None recorded. Surgeries None recorded. Imaging None recorded. Medication Orders cholecalcif jason (vitamin D3) 50 mcg (2,000 unit) tablet 2022 023 [facility], [address] [place] [address], [place], [address], 3 09:32:20 omeprazole 40 mg capsule,del ayed release 2022 023 [facility], [address] [place] [address], [address], 3 15:01:42 montelukast 10 mg tablet [email or web address] [facility], [address] [place] [address], [address], 3 16:33:11 valacyclovi r 1 gram tablet 2022 023 [facility], [address] [place] [address], [address], 3 14:31:17 hydrochloro thiazide 12.5 mg capsule 2022 023 [facility], [address] [place] [address], [address], 3 15:01:46 Patient TargetsNo targets recorded. Patient InstructionsNo instructions recorded. Reason for Referral Referring Physician: Emily Cody, Family Medicine, Encounter Date: 11/10/2022 Results Created Date Observation Date Name Description Value Unit Range Abnormal Flag Note LastModifiedBy Organization Detail LastModifiedTime 11/30/19 23 11/29/2022 CBC WITH DIFFE RENTI AL/PL ATELE T WBC 5.0 x10e3 /uL 3.4-10 .8 Not Available [facility] ([facility]) [address] [facility], [place], [address], 12/04/2022 17:05:24 11/30/19 23 11/29/2022 CBC WITH DIFFE RENTI AL/PL ATELE T RBC 5.07 x10e6 /uL 3.77-5 .28 Not Available [facility] ([facility]) [address] [place], [address], 12/04/2022 17:05:24 11/30/19 23 11/29/2022 CBC WITH DIFFE RENTI AL/PL ATELE T hemoglobin 12.8 g/dL 11.1-1 5.9 Not Available [facility] ([facility]) [address] [place], [address], 12/04/2022 17:05:24 11/30/19 23 11/29/2022 CBC WITH DIFFE RENTI AL/PL ATELE T hematocrit 39.8 % 34.0-4 6.6 Not Available [facility] ([facility]) [address] [place], [address], 12/04/2022 17:05:24 11/30/19 23 11/29/2022 CBC WITH DIFFE RENTI AL/PL ATELE T MCV 79 fL 79-97 Not Available [facility] ([facility]) [address] [place], [address], 12/04/2022 17:05:24 11/30/19 23 11/29/2022 CBC WITH DIFFE RENTI AL/PL ATELE T MCH 25.2 pg 26.6-3 3.0 below low normal Not Available [facility] ([facility]) [address] [place], [address], 12/04/2022 17:05:24 11/30/19 23 11/29/2022 CBC WITH DIFFE RENTI AL/PL ATELE T MCHC 32.2 g/dL 31.5-3 5.7 Not Available [facility] ([facility]) [address] [facility], [place], [address], 12/04/2022 17:05:24 11/30/19 23 11/29/2022 CBC WITH DIFFE RENTI AL/PL ATELE T RDW 13.6 % 11.7-1 5.4 Not Available [facility] ([facility]) [address] [facility], [place], [address], 12/04/2022 17:05:24 11/30/19 23 11/29/2022 CBC WITH DIFFE RENTI AL/PL ATELE T platelets 228 x10e3 /uL 150-45 0 Not Available [facility] ([facility]) [address] [facility], [place], [address], 12/04/2022 17:05:24 11/30/19 23 11/29/2022 CBC WITH DIFFE RENTI AL/PL ATELE T neutrophils 65 % not estab. Not Available [facility] ([facility]) [address] [facility], [place], [address], 12/04/2022 17:05:24 11/30/19 23 11/29/2022 CBC WITH DIFFE RENTI AL/PL ATELE T lymphs 23 % not estab. Not Available [facility] ([facility]) [address] [facility], [place], [address], 12/04/2022 17:05:24 11/30/19 23 11/29/2022 CBC WITH DIFFE RENTI AL/PL ATELE T monocytes 8 % not estab. Not Available [facility] ([facility]) [address] [facility], [place], [address], 12/04/2022 17:05:24 11/30/19 23 11/29/2022 CBC WITH DIFFE RENTI AL/PL ATELE T eos 3 % not estab. Not Available [facility] ([facility]) [address] [facility], [place], [address], 12/04/2022 17:05:24 11/30/19 23 11/29/2022 CBC WITH DIFFE RENTI AL/PL ATELE T basos 1 % not estab. Not Available [facility] ([facility]) [address] [facility], [place], [address], 12/04/2022 17:05:24 11/30/19 23 11/29/2022 CBC WITH DIFFE RENTI AL/PL ATELE T immature cells PRESIDENT [place] Not Available [facility] ([facility]) [address] [place], [address], 12/04/2022 17:05:24 11/30/19 23 11/29/2022 CBC WITH DIFFE RENTI AL/PL ATELE T neutrophils (absolute) 3.2 x10e3 /uL 1.4-7. 0 Not Available [facility] ([facility]) [address] [place], [address], 12/04/2022 17:05:24 11/30/19 23 11/29/2022 CBC WITH DIFFE RENTI AL/PL ATELE T lymphs (absolute) 1.2 x10e3 /uL 0.7-3. 1 Not Available [facility] ([facility]) [address] [place], [address], 12/04/2022 17:05:24 11/30/19 23 11/29/2022 CBC WITH DIFFE RENTI AL/PL ATELE T monocytes(ab solute) 0.4 x10e3 /uL 0.1-0. 9 Not Available [facility] ([facility]) [address] [place], [address], 12/04/2022 17:05:24 11/30/19 23 11/29/2022 CBC WITH DIFFE RENTI AL/PL ATELE T eos (absolute) 0.2 x10e3 /uL 0.0-0. 4 Not Available [facility] ([facility]) [address] [facility], [place], [address], 12/04/2022 17:05:24 11/30/19 23 11/29/2022 CBC WITH DIFFE RENTI AL/PL ATELE T baso (absolute) 0.1 x10e3 /uL 0.0-0. 2 Not Available [facility] ([facility]) [address] [facility], [place], [address], 12/04/2022 17:05:24 11/30/1911/29/2022 CBC WITH DIFFE RENTI AL/PL ATELE T immature granulocytes 0 % not estab. Not Available [facility] ([facility]) [address] [facility], [place], [address], 12/04/2022 17:05:24 11/30/1911/29/2022 CBC WITH DIFFE RENTI AL/PL ATELE T immature grans (abs) 0.0 x10e3 /uL 0.0-0. 1 Not Available [facility] ([facility]) [address] [facility], [place], [address], 12/04/2022 17:05:24 11/30/1911/29/2022 CBC WITH DIFFE RENTI AL/PL ATELE T NRBC [place] Not Available [facility] ([facility]) [address] [facility], [place], [address], 12/04/2022 17:05:24 11/30/1911/29/2022 CBC WITH DIFFE RENTI AL/PL ATELE T hematology comments: [place] Not Available [facility] ([facility]) [address] [facility], [place], [address], 12/04/2022 17:05:24 11/30/1911/29/2022 COMP. METAB OLIC PANEL (14) calcium 9.8 mg/dL 8.7-10 .2 Not Available [facility] ([facility]) [address] [place], [address], 12/04/2022 17:05:25 11/30/19 23 11/30/2022 COMP. METAB OLIC PANEL (14) glucose 82 mg/dL 70-99 Not Available [facility] ([facility]) [address] [place], [address], 12/04/2022 17:05:25 11/30/19 23 11/30/2022 COMP. METAB OLIC PANEL (14) BUN 9 mg/dL 6-24 Not Available [facility] ([facility]) [address] [place], [address], 12/04/2022 17:05:25 11/30/19 23 11/30/2022 COMP. METAB OLIC PANEL (14) creatinine 0.80 mg/dL 0.57-1 .00 Not Available [facility] ([facility]) [address] [place], [address], 12/04/2022 17:05:25 11/30/19 23 11/30/2022 COMP. METAB OLIC PANEL (14) eGFR 95 mL/mi n/1.7 3 >59 Not Available [facility] ([facility]) [address] [place], [address], 12/04/2022 17:05:25 11/30/19 23 11/30/2022 COMP. METAB OLIC PANEL (14) BUN/creatini ne ratio 11 9-23 Not Available [facility] ([facility]) [address] [place], [address], 12/04/2022 17:05:25 11/30/19 23 11/30/2022 COMP. METAB OLIC PANEL (14) sodium 137 mmol/ L 134-14 4 Not Available [facility] ([facility]) [address] [place], [address], 12/04/2022 17:05:25 11/30/19 23 11/30/2022 COMP. METAB OLIC PANEL (14) potassium 3.0 mmol/ L 3.5-5. 2 below low normal Not Available [facility] ([facility]) [address] [place], [address], 12/04/2022 17:05:25 11/30/19 23 11/30/2022 COMP. METAB OLIC PANEL (14) chloride 95 mmol/ L 96-106 below low normal Not Available [facility] ([facility]) [address] [place], [address], 12/04/2022 17:05:25 11/30/19 23 11/30/2022 COMP. METAB OLIC PANEL (14) carbon dioxide, total 28 mmol/ L 20- Not Available [facility] ([facility]) [address] [place], [address], 12/04/2022 17:05:25 11/30/19 23 11/30/2022 COMP. METAB OLIC PANEL (14) protein, total 7.3 g/dL 6.0-8. 5 Not Available [facility] ([facility]) [address] [place], [address], 12/04/2022 17:05:25 11/30/19 23 11/30/2022 COMP. METAB OLIC PANEL (14) albumin 4.3 g/dL 3.8-4. 8 Not Available [facility] ([facility]) [address] [place], [address], 12/04/2022 17:05:25 11/30/19 23 11/30/2022 COMP. METAB OLIC PANEL (14) globulin, total 3.0 g/dL 1.5-4. 5 Not Available [facility] ([facility]) [address] [place], [address], 12/04/2022 17:05:25 11/30/19 23 11/30/2022 COMP. METAB OLIC PANEL (14) A/G ratio 1.4 1.2-2. 2 Not Available [facility] ([facility]) [address] [facility] [place], [address], 12/04/2022 17:05:25 11/30/19 23 11/30/2022 COMP. METAB OLIC PANEL (14) bilirubin, total 0.4 mg/dL 0.0-1. 2 Not Available [facility] ([facility]) [address] [facility] [place], [address], 12/04/2022 17:05:25 11/30/19 23 11/30/2022 COMP. METAB OLIC PANEL (14) alkaline phosphatase 68 IU/L 44-121 Not Available [facility] ([facility]) [address] [place], [address], 12/04/2022 17:05:25 11/30/19 23 11/30/2022 COMP. METAB OLIC PANEL (14) AST (SGOT) 17 IU/L 0-40 Not Available [facility] ([facility]) [address] [place], [address], 12/04/2022 17:05:25 11/30/19 23 11/30/2022 COMP. METAB OLIC PANEL (14) ALT (SGPT) 11 IU/L 0-32 Not Available [facility] ([facility]) [address] [place], [address], 12/04/2022 17:05:25 11/30/19 23 11/30/2022 LIPID PANEL W/ CHOL/ HDL RATIO cholesterol, total 305 mg/dL 100-19 9 above high normal Not Available [facility] ([facility]) [address] [place], [address], 12/04/2022 17:05:25 11/30/19 23 11/30/2022 LIPID PANEL W/ CHOL/ HDL RATIO triglyceride s 167 mg/dL 0-149 above high normal Not Available [facility] ([facility]) [address] [place], [address], 12/04/2022 17:05:25 11/30/19 23 11/30/2022 LIPID PANEL W/ CHOL/ HDL RATIO HDL cholesterol 48 mg/dL >39 Not Available [facility] ([facility]) [address] [place], [address], 12/04/2022 17:05:25 11/30/19 23 11/30/2022 LIPID PANEL W/ CHOL/ HDL RATIO VLDL cholesterol tyrone 32 mg/dL 5-40 Not Available [facility] ([facility]) [address] [facility], [place], [address], 12/04/2022 17:05:25 11/30/19 23 11/30/2022 LIPID PANEL W/ CHOL/ HDL RATIO LDL chol calc ([facility]) 225 mg/dL 0-99 above high normal Not Available [facility] ([facility]) [address] [place], [address], 12/04/2022 17:05:25 11/30/19 23 11/30/2022 LIPID PANEL W/ CHOL/ HDL RATIO comment: Commen t Possi ble Famil ial Hyper elbert stero lemia . nila parks be suspe cted when fasti ng LDL elbert stero l is above 189 mg/dL or non-H DL elbert stero l is above 219 mg/dL . A famil y histo ry of high elbert stero l and heart disea se in 1st degre e relat khadijah nila parks be colle cted. J Clin Lipid ol 2011; 5:133 -140 Not Available [facility] ([facility]) [address] [facility], [place], [address], 12/04/2022 17:05:25 11/30/19 23 11/30/2022 LIPID PANEL W/ CHOL/ HDL RATIO T. chol/HDL ratio 6.4 ratio 0.0-4. 4 above high normal T. Chol/ HDL Ratio Men Women 1/2 Avg.R isk 3.4 3.3 Avg.R isk 5.0 4.4 2X Avg.R isk 9.6 7.1 3X Avg.R isk 23.4 11.0 Not Available [facility] ([facility]) [address] [place], [address], 12/04/2022 17:05:25 11/30/19 23 11/29/2022 BIOME TRICS patient height (in) 62.0 in Not Available [facility] ([facility]) [address] [place], [address], 12/04/2022 17:05:26 11/30/19 23 11/29/2022 BIOME TRICS patient weight (lbs) 193.8 lbs Not Available [facility] ([facility]) [address] [place], [address], 12/04/2022 17:05:26 11/30/19 23 11/29/2022 BIOME TRICS body mass index 35.4 Not Available [facility] ([facility]) [address] [place], [address], 12/04/2022 17:05:26 11/30/19 23 11/29/2022 BIOME TRICS waist circumferenc e (in) 40.0 in Not Available [facility] ([facility]) [address] [place], [address], 12/04/2022 17:05:26 11/30/19 23 11/29/2022 BIOME TRICS systolic blood pressure 123 mmHg Not Available [facility] ([facility]) [address] [place], [address], 12/04/2022 17:05:26 11/30/19 23 11/29/2022 BIOME TRICS diastolic blood pressure 78 mmHg Not Available [facility] ([facility]) [address] [facility], [place], [address], 12/04/2022 17:05:26 11/30/19 23 11/30/2022 VITAM IN B12 AND FOLAT E vitamin B12 618 pg/mL 232-12 45 Not Available [facility] ([facility]) [address] [facility], [place], [address], 12/04/2022 17:05:26 11/30/19 23 11/30/2022 VITAM IN B12 AND FOLAT E folate (folic acid), serum 5.5 NG/mL >3.0 A serum folat e felix ntrat ion of less than 3.1 ng/mL is consi dered to repre sent clini tyrone defic iency . Not Available [facility] ([facility]) [address] [facility], [place], [address], 12/04/2022 17:05:26 11/30/1912/04/2022 VITAM IN E vitamin E(alpha tocopherol) 13.9 mg/L 7.0-25 .1 Not Available [facility] ([facility]) [address] [facility], [place], [address], 12/04/2022 17:05:27 11/30/1912/04/2022 VITAM IN E vitamin E(gamma tocopherol) 3.4 mg/L 0.5-5. 5 Refer ence inter vals for alpha and gamma -toco phero l deter mined from [facility] Nutri tion Exami natio n Surve y, 2004- 2005. Indiv idual s with alpha -toco phero l level s less than 5.0 mg/L are consi dered vitam in E defic ient. Not Available [facility] ([facility]) [address] [facility], [place], [address], 12/04/2022 17:05:27 11/30/1911/30/2022 HEMOG LOBIN A1C hemoglobin A1C 5.2 % 4.8-5. 6 Predi abete s: 5.7 - 6.4 Diabe lurdes: >6.4 Glyce stephanie contr ol for adult s with diabe lurdes: <7.0 Not Available [facility] ([facility]) [address] [facility], [place], [address], 12/04/2022 17:05:27 11/30/1911/30/2022 TSH TSH 2.400 uIU/m L 0.450- 4.500 Not Available [facility] ([facility]) [address] [facility], [place], [address], 12/04/2022 17:05:28 11/30/1912/04/2022 VITAM IN A, SERUM [...] sever jonna defic ient. This test was yanely [facility] and its perfo rmanc e hillary cteri stics deter mined by [employer]. It has not been clear ed or appro lane by the Food and Drug Admin istra tion. Not Available [facility] ([facility]) [address] [facility], [place], [address], 12/04/2022 17:05:28 11/30/1911/30/2022 VITAM IN D, 25-HY [...] 1. IOM (Inst itute of Medic ine). 2009. Dieta ry refer ence intrick es for calci um and D. Armando hernadez [place]: The [facility] [employer] . 2. Param melgar MF, Binkl ey [place], Bisch off-F errar i KUHN, et al. Evalu ation , treat ment, and preve ntion of vitam in D defic iency : an Endoc rine Socie ty clini tyrone pract ice guide line. JCEM. 2010; 96(7) :1911 -30. Not Available [facility] ([facility]) [address] [facility], [place], [address], 12/04/2022 17:05:29 11/30/19 23 11/30/2022 HIV AB/P2 4 AG WITH REFLE X HIV Ab/P24 Ag screen Non Reacti ve non reacti ve HIV Negat lona HIV-1 /HIV- 2 antib odies and HIV-1 p24 antig en were NOT detec venkat. There is no labor atory evide nce of HIV infec tion. Not Available [facility] ([facility]) [address] [facility], [place], [address], 12/04/2022 17:05:29 11/30/19 23 12/02/2022 VITAM IN B1 (THIA MINE) , BLOOD vit. B1, whole blood 106.2 nmol/ L 66.5-2 00.0 Not Available [facility] ([facility]) [address] [place], [address], 12/04/2022 17:05:29 11/30/19 23 11/30/2022 HCV ANTIB [...] e HCV infec tion. Not Available [facility] ([facility]) [address] [facility], [place], [address], 12/04/2022 17:05:30 11/30/19 23 11/30/2022 IRON iron 61 ug/dL 27-159 Not Available [facility] ([facility]) [address] [facility], [place], [address], 12/04/2022 17:05:30 11/30/19 23 12/01/2022 COPPE R, SERUM OR PLASM A copper, serum or plasma 139 ug/dL 80-158 Detec tion Limit = 5 Not Available [facility] ([facility]) [address] [facility], [place], [address], 12/04/2022 17:05:31 11/30/19 23 12/01/2022 ZINC, PLASM A OR SERUM zinc, plasma or serum 124 ug/dL 44-115 above high normal Detec tion Limit = 5 Not Available [facility] ([facility]) [address] [facility], [place], [address], 12/04/2022 17:05:31 06/04/2006/04/2024 histo rical labs cholesterol 225.0 Not Available Not Av ailable 06/14/2024 13:17:48 06/04/2006/04/2024 histo rical labs cholesterol. in HDL 38.0 Not Available Not Available 02/2024 13:17:48 06/04/2006/04/2024 histo rical labs cholesterol. in LDL 152.0 Not Available Not Available 02/2024 13:17:48 06/04/2006/04/2024 histo rical labs glucose 81.0 Not Available Not Availa ble 06/14/2024 13:17:48 Result Notes None recorded. Problems Name Problem SNOMED Code Status Onset Date Resolution Date Notes Provider Name and Address Organization Details Recorded Time History of SARS-CoV-2 [id number] 70278 Active 2022 x 2. Last time was February 2022. Jay rodriguez MD [address], [facility], [address], [place] [facility] 3 16:28:46 Migraine 05021217 Active 2022 Emily Cody MD [address], [facility], [address], [facility] 3 18:37:31 Mixed anxiety and depressive disorder 202368072 Active 2022 Jay rodriguez MD [address], [facility], [address], [facility] 3 09:27:00 Problem Notes None recorded. Procedures Surgical History Date Name Laterality Status Provider Name and Address Organization Details Recorded Time 3 Date of Last Pap Smear completed Elsa Moraleskinstry [place] [facility] 10/06/2022 13:51:48 2 completed Elsa Jamie [place] [facility] 10/06/2022 13:52:34 2 Date of Last Mammogram completed Elsa Jamie [place] [facility] 10/06/2022 13:52:43 8 Orthopedic Surgery completed Elsa Jamie [place] [facility] 10/06/2022 13:53:30 5 Caesarean Section completed Elsa Jamie [place] [facility] 10/06/2022 13:53:29 bariatric operative procedure completed Jay Sevilla MD [address], [place], [address], [facility] 12/03/2022 09:28:10 Imaging Results None recorded. Procedure [...] Not Available Not Available No t Available Nurtec ODT 75 mg disintegr ating tablet TAKE 1 TABLET ON OR UNDER THE TONGUE ONCE A DAY NEEDED. active Not Available Not Available No t Available Vitals Date Recorded Body height Body mass index (BMI) Body weight Provider Name and Address Organization Details Last Updated DateTime 10/06/2022 162.56 cm 30.9 kg/m2 33160.63 g Elsa Ayala [place] - [facility] 10/06/2022 13:35:52 Date Recorded Body height Body mass index (BMI) Body weight Systolic blood pressure Diastolic blood pressure Provider Name and Address Organization Details Last Updated DateTime 12/03/2022 157.48 cm 35.4 kg/m2 72562.2 g 123 mm[Hg] 78 mm[Hg] Elsa Ayala [place] - [facility] 09:15:09 Date Recorded Body weight Body height Systolic blood pressure Diastolic blood pressure Provider Name and Address Organization Details Last Updated DateTime 06/04/2024 34096.48 g 160.02 cm 100 mm[Hg] 72 mm[Hg] Not Available [facility] ([place]) - [employer] 06/14/2024 13:17:48 Social History Question Answer Notes LastModified by Organizat ion Details LastModified Time Tobacco Smoking Status Former Smoker Elsa Ayala null, [place] - [facility] 10/06/2022 13:53:23 What Is Your Level Of Alcohol Consumption? None Information not available 10/06/2022 What Is Your Level Of Caffeine Consumption? Moderate Information not available 10/06/2022 Do You Or Have You Ever Used E-cigarettes Or Vape? Never Used Electronic Cigarettes Information not available 10/06/2022 What Is The Highest Grade Or Level Of School You Have Completed Or The Highest Degree You Have Received? 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 6-10yearssince lastgarcooper 2014 Information not available 12/03/2022 Cigar Smoking No Informatio n not available 10/06/2022 Does Anyone Insult Or Talk Down To You? Rarely Information not available 10/06/2022 Does Anyone Physically Hurt You At Home? Never Information not available 10/06/2022 Lives With And Son Information not available 10/06/2022 Sleep Habits I [...] 0 0 Immunizations Vaccine Type Date Status Note Provider Alphonse rodriguez and Address Organization Details Recorded Time Tdap 04/08/2022 completed Elsa hudson, [place] - [facility] 10/06/2022 13:38:03 Past Encounters Encounter ID Performer Location Encounter Start Date Encounter Closed Date Diagnosis/Indication Diagnosis SNOMED-CT Code Diagnosis ICD10 Code Diagnosis Note [id number] Jay Sevilla MD [facility] [address] [place] [address] 10/06/2022 13:25:59 10/06/2022 17:21:35 Stomatitis 54010434 K12.1 Gastro-eso phageal reflux disease with esophagitis 404029670 K21.00 Needing PPI BID 4-5 days a week. EGD 2019 per pt. She will get name of GI physician. Will need f/u as sx persistent .She has a hx of lap-band surg in 2016 and a revision in 2020. Essential hypertension 34814528 I10 Will send home BP kit. Pt will get vitals for next visit. Chronic ob structive pulmonary disease 00367737 J44.9 Per pt PFT's done in 2019. Dx'd w/ COPD and asthma. Currently using alb prn. Sx most exacerbate d in the early spring and fall. Rec COVID 19 booster, influenza vaccine and Prevnar 20. History of bariatric surgical procedure 918964861 Z98.84 lap band surgery in 2016 and revision in 2020. Wt 268lb in 2017 prior to surgery. Current wt 180lb.Will get routine annual labs post bariatric surgery Adult heal th examination 408871664 Z00.00 Pt will get AP labs.Age appropriat e USPSTF preventati ve measures reviewed.R ec COVID 19 booster. [id number] Jay Sevilla MD [facility] [address] [place] [address] 12/03/2022 08:59:04 12/03/2022 10:36:08 Follow-up visit [id number] Z09 AP labs reviewed Hyperlipidemia 26940331 E78.5 hx of hyperlipid emia. Was on statin which was discontinu ed after bariatric surgery and wt loss. States these labs were done non fasting. Will repeat FLP fasting Hypokalemia 35828541 E87 .6 No sx. Will repeat. Vitamin D below reference range 547722731 E55.9 Migraine [id number] G43.90 9 managed by PCP. on multiple meds. has started medical marijuana as well. [id number] Emily Cody MD [facility] [address] [facility] [address] [place] [address] 11/10/2022 18:37:04 11/10/2022 19:42:59 Migraine 50258747 G43.909 -chronic, managed by pcp,saw pcp today for this migraine attack-she would like referral to a medical marijuana clinic,[facility] she already researched it and would like to proceed-di scussed option for neuro referral which she declined at this time-will place referral per her request-se ek urgent care if getting worse Health Concerns Section Related Observation LastModified by Organization Detai ls LastModified Time None Recorded Concern Status LastModified by Organization Details LastModified Time None Recorded Advance Directives Directive None Recorded Payers Encounter Date Sequence Insurance Name Policy Number Policy Mead Covered Member ID Mead Member ID Guarantor Name 10/06/2022 1 [employer] [id number] 3 [facility] [id number] 25 [facility] 11/10/2022 1 [employer] [id number] [address] [place] [address] [id number] 25 [facility] 12/03/2022 1 [employer] [id number] [address] [place] [address] [id number] 25 [facility] Notes Date Note Type Note Provider Name and Address Organization Details Recorded Time 10/06/2022 text/html VIDEO CONSULTATI ON Patient name, and emergency contact verified.Patient Location - [facility] Location - [facility] - [place] limitations discussed with patient. Patient verbally consented to consultation and treatment with telehealth today. Pt present to establish care and request medication refills. Interested in HMP, address verified.CM,RN Nursing notes reviewed. Patient portal -Anywhere document [...] surgery - Jay Sevilla MD [address], [place], [address], [place] - [facility] 10/06/2022 16:36:14 11/10/2022 text/html The visit is con ducted via a video consultation.Telemedic ine limitations discussed with patient. Patient gave a verbal consent to consultation and treatment via telemedicine. written consent on file.Patient name, , address and emergency contact information verified.Location of the patient during the visit verified to be in [facility] location- [place] PCP Bridget Rouse APRN cc: referral to [...] next week Emily Cody MD [address], [place], [address], [place] - [facility] 11/10/2022 21:26:46 12/03/2022 text/html VIDEO CONSULTATI ON Patient name, and emergency contact verified.Patient Location -[facility] [place] Bridget Rouse APRNTelemedicine limitations discussed with patient. Patient verbally consented to consultation and treatment with telehealth today. Pt presents for lab review. No other concerns at this time. Pt wanted to advise she started medicinal cannabis early November. CORTEZ,RN Jay Sevilla MD [address], [place], [address], [place] - [facility] 12/03/2022 09:56:11 OBGyn Episode No OBEpisode recorded.
--- OUTSIDE RECORDS SUMMARY | 2024-11-15 23:09 | XMS_ITS | Data Portability ---
Author Organization [place] [facility] Address [address] [place] [address] Care Team Providers Care Supervisor Shaving And Splitting Name Role Phone BRIDGET HARRISON Primary Care Provider [phone] BERNARD VOGT Primary Care Provider Assessment No assessment recorded. Plan of Treatment Reminders Order Date Submit Date Provider Last Modified By Organization Details Last Modified Time Details Appointments FOLLOW UP 2024 03:00P Ambrose WAITE NP Not available Not available Not available Lab CBC w/ auto diff 2023 024 [facility] (Registration ), [place], [address], 06/22/2024 13:46:11 iron + TIBC + ferritin, serum [email or web address] (Registration ), [place], [address], 08/09/2024 13:49:02 iron saturatio n, serum [email or web address] (Registration ), [place], [address], 08/09/2024 13:49:03 CBC w/ auto diff 2023 024 [facility] (Registration ), [place], [address], 09/30/2024 05:01:22 iron + TIBC + ferritin, serum 2023 024 [facility] (Registration ), [address], [place], [address], 03/31/2024 16:17:41 transferr in receptor, soluble, serum 2023 024 [facility] (Registration ), [address], [place], [address], 09/30/2024 05:01:23 iron saturatio n, serum 2023 024 [facility] (Registration ), [address], [place], [address], 09/30/2024 05:01:24 CBC w/ auto diff 2023 024 [facility] (Registration ), [address], [place], [address], 12/30/2023 13:13:24 iron + TIBC + ferritin, serum 2023 024 [facility] (Registration ), [address], [place], [address], 12/30/2023 11:59:38 iron saturatio n, serum 2023 024 [facility] (Registration ), [address], [place], [address], 12/30/2023 11:59:38 ADELA (antinucl ear antibodie s) screen, serum 2023 024 [facility] (Registration ), [address], [place], [address], 12/30/2023 11:59:38 ESR (erythroc yte sedimenta tion rate), blood 2023 024 [facility] (Registration ), [address] [place] [address] , [place], [address], 12/30/2023 14:24:21 C-reactiv e protein, quantitat lona, serum or plasma 2023 024 [facility] (Registration ), [address] [place] [address] [place], [address], 12/30/2023 14:36:14 vitamin B12 + folate, serum or blood 2023 024 [facility] (Registration ), [address] [place] [address] [place], [address], 12/31/2023 08:18:33 Referral None recorded. Procedures None recorded. Surgeries None recorded. Imaging XR, pelvis 2023 024 [facility], [address] [place] [address] [place], [address], 12/26/2023 07:49:51 XR, lumbar spine 2023 024 [facility], [address] [place] [address] [place], [address], 12/26/2023 07:49:51 Medication Orders Feraheme 510 mg/17 mL (30 mg/mL) intraveno us solution 2023 024 [email or web address] [place], [address] [place] [address], [address], 04/25/2024 16:37:32 Kenalog 10 mg/mL suspensio n for injection 2023 024 [email or web address] [facility], [address] [place] [address], [place], [address], 03/27/2024 13:52:05 bupivacai ne HCl 0.5 % (5 mg/mL) injection solution 2023 024 [email or web address] [facility], [address] [place] [address], [address], 03/27/2024 13:50:21 Patient TargetsNo targets recorded. Patient InstructionsNo instructions recorded. Reason for Referral None Reported. Results Created Date Observation Date Name Description Value Unit Range Abnormal Flag Note LastModifiedBy Organization Detail LastModifiedTime 12/30/19 24 12/30/2023 CBC W/AUT O DIFFE RENTI AL note SEE NOTE Order ing Provi yemi: Ria lee APRN Not Available [address] , [place], [address], 12/30/2023 13:13:23 12/30/19 24 12/30/2023 CBC W/AUT O DIFFE RENTI AL white blood cell 6.4 10e3/ uL 4.5-13 .0 normal Not Available [address] Angela Jones, [place], [address], 12/30/2023 13:13:23 12/30/19 24 12/30/2023 CBC W/AUT O DIFFE RENTI AL red blood cell 4.56 10e6/ uL 3.80-5 .10 normal Not Available [address] Angela Jones, [place], [address], 12/30/2023 13:13:23 12/30/19 24 12/30/2023 CBC W/AUT O DIFFE RENTI AL hemoglobin 12.4 g/dL 11.5-1 5.3 normal Not Available [address] , [place], [address], 12/30/2023 13:13:23 12/30/19 24 12/30/2023 CBC W/AUT O DIFFE RENTI AL hematocrit 37.1 % 34.0-4 6.0 normal Not Available [address] , [place], [address], 12/30/2023 13:13:23 12/30/19 24 12/30/2023 CBC W/AUT O DIFFE RENTI AL mean cell volume 81 fL 78.0-9 8.0 normal Not Available [address] Angela Jones, [place], [address], 12/30/2023 13:13:23 12/30/19 24 12/30/2023 CBC W/AUT O DIFFE RENTI AL mean cell HGB 27.2 pg 25.0-3 5.0 normal Not Available [address] , [place], [address], 12/30/2023 13:13:23 12/30/19 24 12/30/2023 CBC W/AUT O DIFFE RENTI AL mean cell HGB concentratio n 33.4 g/dL 31.0-3 6.0 normal Not Available [address] Angela Jones, [place], [address], 12/30/2023 13:13:23 12/30/19 24 12/30/2023 CBC W/AUT O DIFFE RENTI AL red cell distribution width 13.1 % 11.0-1 5.0 normal Not Available [address] [place] Jones, [place], [address], 12/30/2023 13:13:23 12/30/19 24 12/30/2023 CBC W/AUT O DIFFE RENTI AL platelet count 236 10e3/ uL 150-40 0 normal Not Available [address] , [place], [address], 12/30/2023 13:13:23 12/30/19 24 12/30/2023 CBC W/AUT O DIFFE RENTI AL immature granulocyte % 0 0-1 normal Not Available [address] , [place], [address], 12/30/2023 13:13:23 12/30/19 24 12/30/2023 CBC W/AUT O DIFFE RENTI AL neutrophil % 68 % 35-75 normal Not Available [address] , [place], [address], 12/30/2023 13:13:23 12/30/19 24 12/30/2023 CBC W/AUT O DIFFE RENTI AL lymphocyte % 24 % 10-50 normal Not Available [address] , [place], [address], 12/30/2023 13:13:23 12/30/19 24 12/30/2023 CBC W/AUT O DIFFE RENTI AL monocyte % 6 % 0-15 normal Not Available [address] , [place], [address], 12/30/2023 13:13:23 12/30/19 24 12/30/2023 CBC W/AUT O DIFFE RENTI AL eosinophil % 2 % 0-5 normal Not Available [address] , [place], [address], 12/30/2023 13:13:23 12/30/19 24 12/30/2023 CBC W/AUT O DIFFE RENTI AL basophil % 1 % 0-5 normal Not Available [address] Angela Jones, [place], [address], 12/30/2023 13:13:23 12/30/19 24 12/30/2023 CBC W/AUT O DIFFE RENTI AL immature granulocyte # 0.02 x1000 /uL 0-0.05 normal Not Available [address] Angela Jones, [place], [address], 12/30/2023 13:13:23 12/30/19 24 12/30/2023 CBC W/AUT O DIFFE RENTI AL neutrophil # 4.37 x1000 /uL 1.50-8 .00 normal Not Available [address] , [place], [address], 12/30/2023 13:13:23 12/30/19 24 12/30/2023 CBC W/AUT O DIFFE RENTI AL lymphocyte # 1.54 x1000 /uL 1.20-5 .20 normal Not Available [address] , [place], [address], 12/30/2023 13:13:23 12/30/19 24 12/30/2023 CBC W/AUT O DIFFE RENTI AL monocyte # 0.35 x1000 /uL 0.40-0 .90 low Not Available [address] Angela Jones, [place], [address], 12/30/2023 13:13:23 12/30/19 24 12/30/2023 CBC W/AUT O DIFFE RENTI AL eosinophil # 0.10 x1000 /uL 0.00-0 .50 normal Not Available [address] Angela Jones, [place], [address], 12/30/2023 13:13:23 12/30/19 24 12/30/2023 CBC W/AUT O DIFFE RENTI AL basophil # 0.04 x1000 /uL 0.00-0 .30 normal Not Available [address] Angela Jones, [place], [address], 12/30/2023 13:13:23 12/30/19 24 12/30/2023 CBC W/AUT O DIFFE RENTI AL NRBC automated 0.0 /100_ WBC Not Available [address] , [place], [address], 12/30/2023 13:13:23 12/30/19 24 12/30/2023 CBC W/AUT O DIFFE RENTI AL performing lab SEE NOTE ML - [facility] [address] [place] [address] Not Available [address] , [place], [address], 12/30/2023 13:13:23 12/30/19 24 12/30/2023 FE W/TOT AL IRON RAIN NG CAP note SEE NOTE Order ing Provi yemi: Tiffa ny Pickr ell [employer] OFFICER Not Available [address] , [place], [address], 12/30/2023 14:20:52 12/30/19 24 12/30/2023 FE W/TOT AL IRON RAIN NG CAP iron 72 ug/dL 50-170 normal Not Available [address] , [place], [address], 12/30/2023 14:20:52 12/30/19 24 12/30/2023 FE W/TOT AL IRON RAIN NG CAP total iron binding capacity 245 ug/dL 260-44 5 low Not Available [address] , [place], [address], 12/30/2023 14:20:52 12/30/19 24 12/30/2023 FE W/TOT AL IRON RAIN NG CAP iron saturation 29 % 20-50 normal Not Available [address] , [place], [address], 12/30/2023 14:20:52 12/30/19 24 12/30/2023 FE W/TOT AL IRON RAIN NG CAP performing lab SEE NOTE ML - [facility] [address] [place] [address] Not Available [address] Angela Jones, [place], [address], 12/30/2023 14:20:52 12/30/19 24 12/30/2023 SEDIM ENTAT ION RATE note SEE NOTE Order ing Provi yemi: Ria lee SEC[employer]ITY POLICE OFFICER Not Available [address] , [place], [address], 12/30/2023 14:24:21 12/30/19 24 12/30/2023 SEDIM ENTAT ION RATE sedimentatio n rate 23 mm/HR 0-20 high Not Available [address] , [place], [address], 12/30/2023 14:24:21 12/30/19 24 12/30/2023 SEDIM ENTAT ION RATE performing lab SEE NOTE ML - [facility] [address] [facility] [place] [address] Not Available [address] , [place], [address], 12/30/2023 14:24:21 12/30/19 24 12/30/2023 C-JASON CTIVE PROTE IN note SEE NOTE Order ing Provi yemi: Ria lee SEC[employer] OFFICER Not Available [address] , [place], [address], 12/30/2023 14:36:14 12/30/19 24 12/30/2023 C-JASON CTIVE PROTE IN C-reactive protein 9.7 mg/L <5.0 high NOT E NEW REFER ENCE RANGE S Not Available [address] , [place], [address], 12/30/2023 14:36:14 12/30/19 24 12/30/2023 C-JASON CTIVE PROTE IN performing lab SEE NOTE ML - [facility] [address] [place] [address] Not Available [address] , [place], [address], 12/30/2023 14:36:14 12/30/19 24 12/30/2023 CHARIS TIN note SEE NOTE Order ing Provi yemi: Ria lee SEC[employer]ICE OFFICER Not Available [address] , [place], [address], 12/30/2023 14:36:15 12/30/19 24 12/30/2023 CHARIS TIN ferritin 273 NG/mL 8-252 high Not Available [address] , [place], [address], 12/30/2023 14:36:15 12/30/19 24 12/30/2023 CHARIS TIN performing lab SEE NOTE - [facility] R [address] [facility] [address] [facility] [address] Not Available [address] , [place], [address], 12/30/2023 14:36:15 12/30/19 24 12/30/2023 VITAM IN B12 FOLAT E note SEE NOTE Order ing Provi yemi: Ria lee SEC[employer] POLICE OFFICER Not Available [address] , [place], [address], 12/31/2023 08:18:33 12/30/19 24 12/30/2023 VITAM IN B12 FOLAT E vitamin B12 643 pg/mL 232-12 45 Not Available [address] , [place], [address], 12/31/2023 08:18:33 12/30/19 24 12/30/2023 VITAM IN B12 FOLAT E folic acid 4.6 NG/mL >3.0 . A serum folat e felix ntrat ion of less than 3.1 ng/mL is consi dered to repre sent clini tyrone defic iency . Perfo rmed At: CB, [facility] [address] [facility], [place], [place], [id number] [address] Enrico hurtado, PhD, Phone : [phone] Not Available [address] [place], [address], 12/31/2023 08:18:33 12/30/19 24 12/30/2023 VITAM IN B12 FOLAT E performing lab SEE NOTE LC2 - LAB[facility] RP CLIEN T# [id number] 022 [address] [place] [address] Not Available [address] [place], [address], 12/31/2023 08:18:33 12/30/19 24 12/30/2023 ANTIN UCLEA R ANTIB ODIES TITER note See Note Order ing Provi yemi: Ria lee SEC[employer] OFFICER Not Available [address] , [place], [address], 01/03/2024 15:37:04 12/30/19 24 12/30/2023 ANTIN UCLEA R ANTIB ODIES TITER ADELA screen Negati ve () Negat lona <1:80 Borde rline 1:80 Posit lona >1:80 ICAP nomen clatu re: AC-0 For more infor reyna n about Hep-2 cell patte rns use ANApa ttern s.org , the offic ial brycei te for the Inter natio nal Conse nsus on Antin uclea r Antib ilsa (ADELA) Patte rns (ICAP ). Perfo rmed At: CB, [facility] [address] [facility], [place], [address] [address] Enrico hurtado, PhD, Phone : [phone] Not Available [address] [place], [address], 01/03/2024 15:37:04 12/30/19 24 12/30/2023 ANTIN UCLEA R ANTIB ODIES TITER performing lab see note LC2 - LAB[facility] CLIEN T# [id number] 022 [address] [place] [address] Not Available [address] , [place], [address], 01/03/2024 15:37:04 06/22/2006/22/2024 CBC W/AUT O DIFFE RENTI AL note SEE NOTE Order ing Provi eymi: Kirkannette angelica lee SEC[employer] OFFICER Not Available [address] , [place], [address], 06/22/2024 13:46:11 06/22/2006/22/2024 CBC W/AUT O DIFFE RENTI AL white blood cell 5.8 10e3/ uL 4.5-13 .0 normal Not Available [address] , [place], [address], 06/22/2024 13:46:11 06/22/2006/22/2024 CBC W/AUT O DIFFE RENTI AL red blood cell 4.99 10e6/ uL 3.80-5 .10 normal Not Available [address] , [place], [address], 06/22/2024 13:46:11 06/22/2006/22/2024 CBC W/AUT O DIFFE RENTI AL hemoglobin 13.0 g/dL 11.5-1 5.3 normal Not Available [address] , [place], [address], 06/22/2024 13:46:11 06/22/2006/22/2024 CBC W/AUT O DIFFE RENTI AL hematocrit 39.3 % 34.0-4 6.0 normal Not Available [address] [place], [address], 06/22/2024 13:46:11 06/22/2001 0706/22/2024 CBC W/AUT O DIFFE RENTI AL mean cell volume 79 fL 78.0-9 8.0 normal Not Available [address] [place], [place], [address], 06/22/2024 13:46:11 06/22/20 24 06/22/2024 CBC W/AUT O DIFFE RENTI AL mean cell HGB 26.1 pg 25.0-3 5.0 normal Not Available [address] , [place], [address], 06/22/2024 13:46:11 06/22/20 24 06/22/2024 CBC W/AUT O DIFFE RENTI AL mean cell HGB concentratio n 33.1 g/dL 31.0-3 6.0 normal Not Available [address] [place], [place], [address], 06/22/2024 13:46:11 06/22/20 24 06/22/2024 CBC W/AUT O DIFFE RENTI AL red cell distribution width 12.8 % 11.0-1 5.0 normal Not Available [address] [place], [place], [address], 06/22/2024 13:46:11 06/22/20 24 06/22/2024 CBC W/AUT O DIFFE RENTI AL platelet count 182 10e3/ uL 150-40 0 normal Not Available [address] [place], [place], [address], 06/22/2024 13:46:11 06/22/20 24 06/22/2024 CBC W/AUT O DIFFE RENTI AL immature granulocyte % 0 0-1 normal Not Available [address] [place], [place], [address], 06/22/2024 13:46:11 06/22/20 24 06/22/2024 CBC W/AUT O DIFFE RENTI AL neutrophil % 66 % 35-75 normal Not Available [address] , [place], [address], 06/22/2024 13:46:11 06/22/20 24 06/22/2024 CBC W/AUT O DIFFE RENTI AL lymphocyte % 23 % 10-50 normal Not Available [address] [place], [place], [address], 06/22/2024 13:46:11 06/22/20 24 06/22/2024 CBC W/AUT O DIFFE RENTI AL monocyte % 6 % 0-15 normal Not Available [address] , [place], [address], 06/22/2024 13:46:11 06/22/20 24 06/22/2024 CBC W/AUT O DIFFE RENTI AL eosinophil % 3 % 0-5 normal Not Available [address] [place], [place], [address], 06/22/2024 13:46:11 06/22/20 24 06/22/2024 CBC W/AUT O DIFFE RENTI AL basophil % 1 % 0-5 normal Not Available [address] [place], [place], [address], 06/22/2024 13:46:11 06/22/20 24 06/22/2024 CBC W/AUT O DIFFE RENTI AL immature granulocyte # 0.02 x1000 /uL 0-0.05 normal Not Available [address] [place], [place], [address], 06/22/2024 13:46:11 06/22/20 24 06/22/2024 CBC W/AUT O DIFFE RENTI AL neutrophil # 3.83 x1000 /uL 1.50-8 .00 normal Not Available [address], [place], [address], 06/22/2024 13:46:11 06/22/20 24 06/22/2024 CBC W/AUT O DIFFE RENTI AL lymphocyte # 1.36 x1000 /uL 1.20-5 .20 normal Not Available [address] [place], [place], [address], 06/22/2024 13:46:11 06/22/20 24 06/22/2024 CBC W/AUT O DIFFE RENTI AL monocyte # 0.36 x1000 /uL 0.40-0 .90 low Not Available [address] [place], [place], [address], 06/22/2024 13:46:11 06/22/20 24 06/22/2024 CBC W/AUT O DIFFE RENTI AL eosinophil # 0.16 x1000 /uL 0.00-0 .50 normal Not Available [address] [place], [place], [address], 06/22/2024 13:46:11 06/22/20 24 06/22/2024 CBC W/AUT O DIFFE RENTI AL basophil # 0.08 x1000 /uL 0.00-0 .30 normal Not Available [address] [place], [place], [address], 06/22/2024 13:46:11 06/22/20 24 06/22/2024 CBC W/AUT O DIFFE RENTI AL NRBC automated 0.0 /100_ WBC Not Available [address] [place], [place], [address], 06/22/2024 13:46:11 06/22/20 24 06/22/2024 CBC W/AUT O DIFFE RENTI AL performing lab SEE NOTE ML [facility] [place] [address] [facility] [address] [facility] [address] Not Available [address] , [place], [address], 06/22/2024 13:46:11 06/22/20 24 06/22/2024 FE W/TOT AL IRON RAIN NG CAP note SEE NOTE Order ing Provi yemi: Ria lee SEC[employer] OFFICER Not Available [address] , [place], [address], 06/22/2024 13:53:45 06/22/20 24 06/22/2024 FE W/TOT AL IRON RAIN NG CAP iron 72 ug/dL 50-170 normal Not Available [address] , [place], [address], 06/22/2024 13:53:45 06/22/20 24 06/22/2024 FE W/TOT AL IRON RAIN NG CAP total iron binding capacity 253 ug/dL 260-44 5 low Not Available [address] , [place], [address], 06/22/2024 13:53:45 06/22/20 24 06/22/2024 FE W/TOT AL IRON RAIN NG CAP iron saturation 28 % 20-50 normal Not Available [address] , [place], [address], 06/22/2024 13:53:45 06/22/20 24 06/22/2024 FE W/TOT AL IRON RAIN NG CAP performing lab SEE NOTE ML - [facility] [address] [place] [address] Not Available [address] [place], [address], 06/22/2024 13:53:45 06/22/20 24 06/22/2024 CHARIS TIN note SEE NOTE Order ing Provi yemi: Ria lee SECURITY POLICE OFFICER Not Available [address] , [place], [address], 06/22/2024 14:11:39 06/22/20 24 06/22/2024 CHARIS TIN ferritin 505 NG/mL 8-252 high Not Available [address] , [place], [address], 06/22/2024 14:11:39 06/22/2006/22/2024 CHARIS TIN performing lab SEE NOTE - [facility] [address] [facility] [address] Not Available [address] , [place], [address], 06/22/2024 14:11:39 12/23/19 24 XR, lumba r spine No observ ation record ed. NATASHA Avila [address] , [place], [address], 12/23/2023 08:15:01 12/23/19 24 XR, pelvi s No observ ation record ed. NATASHA Avila [address] , [place], [address], 12/23/2023 08:15:27 Result Notes None recorded. Problems Name Problem SNOMED Code Status Onset Date Resolution Date Notes Provider Name and Address Organization Details Recorded Time Cyst of right ovary 0979316885322 9108 Active 2018 JAKY Mag[place] 12:19:18 Chronic obstructive pulmonary disease 05946580 Active 2019 JAKY Magana - [place] 12:19:18 Leiomyoma 2475291451345 03 Active 2018 JAKY Magana - [place] 3 12:19:18 Constipatio n 70686079 Active 2018 Milton hudson [place] - [facility] - [facility] [place] 3 12:19:18 Indigestion 692780942 Active 2016 [place] - [facility] - [facility] 3 12:19:18 Vulval pain 522686178 Active 2021 [place] - [facility] - [facility] 3 12:19:18 Folic acid deficiency 207154985 Active 2021 [place] [facility] - [facility] 3 12:19:18 Asthma 108300766 Active 2019 Milton [place] [facility] - [facility] [place] 3 12:19:18 Fibromyalgi a 310935602 Active 2016 [place] [facility] - [facility] [place] 3 12:19:18 Syncope 555130306 Active 2016 [place] [facility] - [facility] [place] 3 12:19:18 Low back pain 305525337 Active 2021 [place] [facility] - [facility] 3 12:19:18 Orthostatic hypotension 85228358 Active 2016 [place] [facility] - [facility] 3 12:19:18 Pain in pelvis 35068704 Active 2018 [place] [facility] - [facility] [place] 3 12:19:18 Iron deficiency 86956671 Active 2018 Milton Rangel null[place] - [facility] - [facility] & [place] 3 12:19:18 Migraine 99916239 Active 2017 [place] [facility] - [facility] 3 12:19:18 Hypertensiv e disorder 63242615 Active 2016 Milton [place] [facility] - [place] 3 12:19:18 Hypokalemia 74699310 Active 2021 Milton [place] [facility] [place] 3 12:19:18 Hyperlipide hector 47070324 Active 2016 [place] - [facility] [place] 3 12:19:18 Wheezing 29795321 Active 2019 [place] [facility] - [place] 3 12:19:18 Occult blood detected in feces 95183139 Active 2021 [place] [facility] - [place] 3 12:19:18 Cyst of vulva 07219359 Active 2021 [place] 3 12:19:18 History of bariatric surgical procedure 711335788 Active 2018 Milton [place] [facility] [place] 3 12:19:18 Nocturnal cough 13513520 Active 2019 Milton Rangel null[place] - [facility] - [place] 3 12:19:18 Dyspareunia 45985821 Active 2018 Milton [place] [facility] - [place] 3 12:19:18 Smoker 38384517 Active 2018 Milton [place] [facility] [place] 3 12:19:18 COVID-19 510511670 Active 2020 Milton R[place] [facility] [place] 3 12:19:18 Suspected COVID-19 764009517 Active 2019 Milton R[place] null[place] [facility] 3 12:19:18 Uterine leiomyoma 51201072 Active 2018 Milton Mckeongieri null[place] [facility] [place] 3 12:19:18 Iron deficiency anemia 58615545 Active 2022 [place] [facility] [place] 3 12:19:18 Labial cyst 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 Active Milton Rangel null[place] - [facility] - [place] 3 12:19:18 Esophageal dysmotility 592017865 Active 2022 Charles Jorge MD [address] [place] [address],[address], [place], [address], [place] [facility] [place] 3 14:35:53 Iron deficiency without anemia 832545197 Active 2022 MARGARITA WAITE NP [address] [place] [address],[address], [place], [address], [place] [facility] & [facility] 3 10:17:40 Joint pain 48059389 Active 2023 MARGARITA WAITE NP [address] [place] [address],[address], [place], [address], [place] [facility] [place] 4 18:18:09 Fatigue 28838774 Active 2023 MARGARITA WAITE NP [address] [place] [address],[address], [place], [address], [place] [facility] [place] 4 18:18:09 Abdominal pain 70640090 Active 2023 MAHNAZ ESCOBAR MD [address] [place] [address],[address], [place], [address], [place] [facility] [place] 4 14:07:29 Problem Notes None recorded. Procedures Surgical History Date Name Laterality Status Provider Name and Address Organization Details Recorded Time 06/22/20 24 Venipuncture completed Radha Jackson [place] [place] 06/22/2024 10:11:17 08/08/19 24 Date of Last Pap Smear completed Marie Lal [place] [facility] [place] 09/30/2023 09:33:55 08/08/19 24 Game Tester Surgery completed Marie STARKEY - [facility] - [place] 09/30/2023 09:35:11 06/08/20 23 Date of Last Colonoscopy completed Marie STARKEY - [facility] - [place] 09/30/2023 09:33:55 05/17/20 23 EGD/Endoscopy completed Milton STARKEY - [facility] - [place] 05/31/2023 13:57:35 05/08/20 23 completed Marie STARKEY - [facility] - [place] 09/30/2023 09:33:55 08/08/19 22 Game Tester Surgery completed Milton STARKEY - [facility] [place] 05/30/2023 12:43:54 08/08/19 20 maintenance of gastric band completed Milton STARKEY - [facility] [place] 04/25/2023 15:33:56 08/08/19 17 laparoscopic adjustable gastric banding completed Milton STARKEY - [facility] [place] 04/25/2023 15:33:36 08/08/19 07 Other completed Milton STARKEY - [facility] [place] 05/31/2023 13:58:12 08/08/19 05 section completed Milton STARKEY - [facility] [place] 04/25/2023 15:33:12 08/08/19 05 Abdominal Surgery completed Milton STARKEY - [facility] [place] 05/30/2023 12:43:54 08/08/19 02 Dilation and Curettage completed Milton STARKEY - [facility] [place] 04/25/2023 15:33:23 01/06/19 69 Most Recent Bone Density completed Marie STARKEY - [facility] [place] 09/30/2023 09:33:55 resection of polyp completed Milton STARKEY - [facility] [place] 04/25/2023 15:34:32 extraction of wisdom tooth completed Milton STARKEY [facility] & [place] 04/25/2023 15:35:11 Imaging Results Imaging Date Name Status LastModified by Organiz ation Details LastModified Time 12/23/2023 XR, lumbar spine completed NATASHA [facility] [address] [place], [address], 12/23/2023 08:15:01 12/23/2023 XR, pelvis completed NATASHA [address] [place], [address], 12/23/2023 08:15:27 Procedure Notes None recorded. Medical Equipment None Reported. Allergies Allergen ID Allergen Name Allergen Category Reaction Reaction Severity Criticality Documentation Date Start Date Code Code System Note Provider Name and Address Organization Details Recorded Time 16615 Claritin- D medicatio n Not available Not available Not available 04/07/20232007 33603 6 RxNorm Marie Shimons [facility] 3 14:52:00 18710 chlorphen iramine medicatio n dyspnea moderate Not available 05/31/20232021 2400 RxNorm Milton Juan Carlos [facility] 3 12:19:34 13056 phenylpro panolamin e medicatio n dyspnea moderate Not available 05/31/20232021 8175 RxNorm Milton hudson [facility] & [place] 3 12:19:34 Medications Name Sig Start Date [...] 162.56 cm Tanna Sanchez [place] - [facility] - [place] 12/23/2023 08:10:26 Date Recorded Body height Body mass index (BMI) Body weight Body temperature Oxygen saturation Oxygen saturation in Arterial blood by Pulse oximetry Heart rate Respiratory rate Systolic blood pressure Diastolic blood pressure Provider Name and Address Organization Details Last Updated DateTime 4 162.56 cm 33.3 kg/m2 63820.6 4 g 97.8 [degF] 97 % 97 % 69 /min 16 /min 146 mm[Hg] 80 mm[Hg] Marie Lukasz [facility] & [place] 4 09:51:20 Date Recorded Body height Body mass index (BMI) Body weight Body temperature Oxygen saturation Oxygen saturation in Arterial blood by Pulse oximetry Heart rate Systolic blood pressure Diastolic blood pressure Provider Name and Address Organization Details Last Updated DateTime 4 162.56 cm 33.5 kg/m2 22670.2 3 g 98.2 [degF] 100 % 100 % 78 /min 141 mm[Hg] 78 mm[Hg] Geno Rios [facility] & [place] 4 13:49:26 Date Recorded Body height Body mass index (BMI) Body weight Body temperature Oxygen saturation Oxygen saturation in Arterial blood by Pulse oximetry Heart rate Respiratory rate Systolic blood pressure Diastolic blood pressure Provider Name and Address Organization Details Last Updated DateTime 4 162.56 cm 33.1 kg/m2 82788.6 1 g 98.1 [degF] 99 % 99 % 71 /min 16 /min 131 mm[Hg] 63 mm[Hg] Marie Barton [facility] & [place] 4 10:46:17 Date Recorded Body height Provider Name an d Address Organization Details Last Updated DateTime 06/22/2024 162.56 cm Radha Jackson [facility] & [place] 06/22/2024 10:02:24 Social History Question Answer Notes LastModified by Organizat ion Details LastModified Time Tobacco Smoking Status Former Smoker Milton hudson [facility] & [place] 04/25/2023 15:31:36 Do You Have An Advance [...] Of Your Most Recent Tobacco Screening? 04/20/2024 [email or web address] Information not available 04/20/2024 Are You Passively Exposed To Smoke? Yes Information not available 05/30/2023 Do You Or Have You Ever Used Smokeless Tobacco? Never Used Smokeless Tobacco Information not available 05/30/2023 How Much Tobacco Do You Smoke? 0.5 PPD Information not available 05/30/2023 Do You Feel Stressed (tense, Restless, Nervous, Or Anxious, Or Unable To Sleep At Night)? [id number] Information not available 05/30/2023 Do You Use Any Illicit Or Recreational Drugs? Yes Information not available 04/25/2023 How Many Years Have You Smoked Tobacco? 20 [email or web address] Information not available 12/30/2023 Have You Used IV Drugs? No Information not available 05/31/2023 Sex: Unknown Functional Status Question Answer Note LastModified by Organization D etails LastModified Time What is your exercise level? None [email or web address] Information not available 12/30/2023 Mental Status None [...] History Condition Response Coronary Artery Disease N Gout N None N Other Y Colon Cancer N Kidney Stones N Hyperthyroidism N Kidney or Bladder Problems Y Lung Disease Y Depression N COPD Y Hypothyroidism N Osteoporosis/Osteopenia N Anemia Y Diverticulitis/Diverticulosis N Colon Polyps N Diabetes N Anxiety Disorder N Obesity Y Bleeding Disorder N Seizures/Epilepsy N Arthritis N Tuberculosis N Hyperlipidemia N Cancer N Back Problems Y Stroke N Asthma Y Lupus Y Reflux/GERD Y Sleep Apnea N GERD/Reflux N Hepatitis N Liver Disease N Cirrhosis N Psychiatric/Mental Health Condition Y Heart Disease [...] Immunizations Vaccine Type Date Status Note Provider Nam e and Address Organization Details Recorded Time Influenza, split virus, quadrivalent, preservative 0 completed Not Available [facility] 05/18/2023 01:43:07 Influenza, split virus, quadrivalent, preservative 9 completed Not Available [facility] 05/18/2023 01:43:07 Influenza, split virus, quadrivalent, preservative 8 completed Not Available [facility] 05/18/2023 01:43:07 Influenza, split virus, quadrivalent, preservative 1 completed Not Available [facility] 05/18/2023 01:43:08 Influenza, split virus, quadrivalent, preservative 7 completed Not Available [facility] 05/18/2023 01:43:08 COVID-19 vaccine, vector-nr, rS-Ad26, PF, 0.5 mL 1 completed Not Available [facility] 05/18/2023 01:43:08 influenza, unspecified formulation 3 completed Not Available [facility] 05/18/2023 01:43:08 influenza, unspecified formulation 5 completed Not Available [facility] 05/18/2023 01:43:08 influenza, unspecified formulation 4 completed Not Available [facility] 05/18/2023 01:43:08 influenza, unspecified formulation 2 completed Not Available [facility] 05/18/2023 01:43:08 Tdap 1 completed Not Available [facility] 05/18/2023 01:43:08 Tdap 9 completed Not Available [facility] 05/18/2023 01:43:08 Influenza, split virus, trivalent, PF 2 completed Not Available [facility] 05/18/2023 01:43:08 Hep A, adult 9 completed Not Available [facility] 05/18/2023 01:43:08 Hep A, adult 9 completed Not Available [facility] 05/18/2023 01:43:08 influenza, unspecified formulation 2 completed Not Available [facility] 05/18/2023 01:43:08 influenza, unspecified formulation 3 completed JAKY Magana - [facility] [place] 05/31/2023 12:23:17 Past Encounters Encounter ID Performer Location Encounter Start Date Encounter Closed Date Diagnosis/Indication Diagnosis SNOMED-CT Code Diagnosis ICD10 Code Diagnosis Note [id number] MD VASILE Amaya [facility] [address] [place] [address] 04/07/2023 14:30:41 04/07/2023 15:16:49 Iron deficiency without anemia 075141838 E61.1 Patient has history of iron-defic iency that was treated with IV iron in the past. Patient returns with symptomati c iron-defic iency. Of note, she had tried oral iron in the past Without any improvemen t in her iron-defic iency. Her iron saturation is only 10%. Patient will be given weekly Feraheme x2 doses. Goal of the treatment is to reach iron saturation to 20% minimum. I will see the patient back in 3 months with a repeated CBC and iron studies. History of bariatric surgical procedure [id number] Z98.84 Patient has history of bariatric surgical procedure. I will be checking zinc, copper and vitamin B12 level. Patient with bariatric surgery are at risk for zinc, copper And vitamin B12 deficiency . Folic acid deficiency 19 7057866 E53.8 patient noted to have folic acid deficiency . She will be started on folic acid supplement ation. Painful re ctal bleeding 342038753 K62.5 send to GI for colonoscop y [id number] Charles Jorge MD [facility] [address] [place] [address],[address] [address] 04/25/2023 14:36:26 04/25/2023 16:33:56 Iron deficiency anemia 10930101 D50.9 Chronic iron deficiency anemia refractory to oral replacemen t, plan EGD, and colonoscop y for diagnostic purposes. The patient's request for Sutab, discussed with patient that if she needs to she can slow down her during with each set of pills but needs to drink plenty of fluids or she will not clear Hypokalemia 91634770 E87 .6 seen in ER for hypokalemi a, was given IV potassium, and started on potassium supplement ation. The patient continues however on hydrochlor othiazide, would recommend the patient discuss with her primary provider an alternativ e to hydrochlor othiazide that might ought exacerbate her hypokalemi a. [id number] MD VASILE Myers [place] [facility] [address] [place] [address],[address] [address] 05/31/2023 13:48:12 05/31/2023 14:46:24 Iron deficiency anemia 12199106 D50.9 the patient recently underwent an EGD and colonoscop y for evaluation have potential gastrointe stinal blood loss. The patient's EGD demonstrat ed changes consistent with prior lap band, but the patient's esophagus was also markedly dilated with a large amount of retained material within the esophagus itself with findings suggestive of esophageal dysmotilit y. see workup below no obvious cause of blood loss identified endoscopic ally. Defer management of the patient's hematology team Hypokalemia 56710907 E87 .6 Esophageal dysmotility 837375925 K22.4 The patient has had a prior lap band with revision. I believe the patient needs an esophageal manometry, but we will need the patient's lap band fully decompress ed before that we will therefore have the patient f/u with Bariatric surgery for lap band decompress ion, then refer for esophageal manometry [id number] [facility] [address] [place] [address] [place] [address] 05/31/2023 13:11:34 05/31/2023 13:48:28 Iron deficiency without anemia 870641585 E61.1 Patient presents May 31, 2023 for follow-up regarding iron deficiency . Patient has history of iron-defic iency that was treated with IV iron in the past. Patient returns with symptomati c iron-defic iency. Of note, she had tried oral iron in the past without any improvemen t in her iron-defic iency. Her iron saturation is only 10%. Patient treated with IV FeraHeme. Goal iron saturation of 20%. Repeat laboratory evaluation today. CBC fairly unremarkab le. Iron studies showed iron 70, TIBC 248, iron saturation 28%, and ferritin 311. Will hold further transfusio n for now. Patient to return to clinic in 6 weeks. Should you have any further questions or concerns, please feel free to give me a call at . I personally spent 25 minutes in patient care on this date reviewing records, obtaining interim history, performing a physical exam, counseling the patient, ordering and reviewing today's labs, and documentin g informatio n in the electronic health record. [id number] [facility] [address] [place] [address] [place] [address] 07/12/2023 13:00:32 07/12/2023 13:41:01 Iron deficiency without anemia [id number] E61.1 Patient presents July 12, 2023 for follow-up regarding iron deficiency . Patient has history of iron-defic iency that was treated with IV iron in the past. Patient returns with symptomati c iron-defic iency. Of note, she had tried oral iron in the past without any improvemen t in her iron-defic iency. Patient previously treated with IV FeraHeme. Laboratory evaluation today. CBC showed hemoglobin 12.5, hematocrit 30.3, and MCV 82. Iron study showed iron 52, TIBC 268, iron saturation 19%, and ferritin 136. Goal iron saturation of 20%. Given patient is symptomati c, would recommend IV Feraheme. Patient to return to clinic in 6 weeks. Should you have any further questions or concerns, please feel free to give me a call at . I personally spent 25 minutes in patient care on this date reviewing records, obtaining interim history, performing a physical exam, counseling the patient, ordering and reviewing today's labs, and documentin g informatio n in the electronic health record. [id number] [facility] [address] [facility] [place] [facility] [place] [address] 09/30/2023 09:22:21 09/30/2023 09:59:40 Iron deficiency without anemia 154554156 E61.1 Patient presents September 30, 2023 for follow-up regarding iron deficiency . Patient has history of iron-defic iency that was treated with IV iron in the past. Patient previously tried oral iron in the past without any improvemen t in her iron-defic iency and transition ed to IV iron. Laboratory evaluation today. Labs pending at this time. Goal ferritin greater than 50. Goal iron saturation greater than 20%. Given patient's recent hysterecto my, would hope to see her iron needs decrease over the next few months. Patient to return to clinic in 3 months. Should you have any further questions or concerns, please feel free to give me a call at . I personally spent 25 minutes in patient care on this date reviewing records, obtaining interim history, performing a physical exam, counseling the patient, ordering and reviewing today's labs, and documentin g informatio n in the electronic health record. [id number] DO VASILE GUERRERO [facility] [address] [place] [address] 12/23/2023 07:54:24 12/23/2023 08:28:16 Low back pain 708364218 M54.50 Hip pain 26890575 M25.55 9 Trochanter ic bursitis of left hip [id number] 77377 M70.62 [id number] [facility] [address] [place] [address] [place] [address] 12/30/2023 09:37:04 12/30/2023 10:24:04 Iron deficiency without anemia [id number] E61.1 Patient presents December 30, 2023 for follow-up regarding iron deficiency . Patient has history of iron-defic iency that was treated with IV iron in the past. Patient previously tried oral iron in the past without any improvemen t in her iron-defic iency and transition ed to IV iron. Laboratory evaluation today. Laboratory evaluation performed in the office. Labs pending at this time. Goal ferritin greater than 50. Goal iron saturation greater than 20%. Given patient's recent hysterecto my, would hope to see her iron needs decrease over the next few months. Patient to return to clinic in 3 months. Should you have any further questions or concerns, please feel free to give me a call at . I personally spent 25 minutes in patient care on this date reviewing records, obtaining interim history, performing a physical exam, counseling the patient, ordering and reviewing today's labs, and documentin g informatio n in the electronic health record. Joint pain 75118586 M25. 50 Patient noted to have persistent joint pain. Will assess for inflammato ry markers. Fatigue 03903207 R53.83 Patient with persistent fatigue. Recommend evaluate for vitamin B12 deficiency . [id number] MD VASILE PAEZ [facility] [address] [place] [address] [place] [address] 03/27/2024 13:41:08 03/27/2024 14:11:37 Iron deficiency anemia 40705013 D50.9 43-year-ol d female history of iron-defic iency anemia requiring intermitte nt iron infusions, now status post hysterecto my September 2023 with last iron infusion received shortly before. Patient has a history of SLE for which she is on Plaquenil and followed by Rheumatolo gy. She indicates that she is experienci ng subjective flare at this time with increased fatigue and joint pains and has follow-up with Rheumatolo gy in the next 2 weeks. Labs from December 2023 reviewed with hemoglobin 12.4, MCV 81, ferritin 245 with an iron sat of 29%; noted elevated inflammato ry markers with a ESR of 23 and CRP of 9.7. Potential that the ferritin of 245 is falsely elevated in the setting of underlying SLE and the ferritin is an acute phase reactant, notwithsta nding TSAT was >20% so not iron deficient in . B12 and folate from [place] within normal limits. Otherwise white blood cell differenti al within normal limits and appropriat e platelet count. -CBC, iron labs, soluble transferri n receptor- return to clinic in 2 weeks to follow up on labs Abdominal pain 67694596 R10.9 [id number] [facility] [address] [place] [address] [place] [address] 04/20/2024 10:25:17 04/20/2024 11:13:36 Iron deficiency anemia 07686851 D50.9 43-year-ol d female history of iron-defic iency anemia requiring intermitte nt iron infusions, now status post hysterecto my September 2023 with last iron infusion received shortly before. Patient has a history of SLE for which she is on Plaquenil and followed by Rheumatolo gy. She indicates that she is experienci ng subjective flare at this time with increased fatigue and joint pains and has follow-up with Rheumatolo gy in the next 2 weeks. Labs from December 2023 reviewed with hemoglobin 12.4, MCV 81, ferritin 245 with an iron sat of 29%; noted elevated inflammato ry markers with a ESR of 23 and CRP of 9.7. Potential that the ferritin of 245 is falsely elevated in the setting of underlying SLE and the ferritin is an acute phase reactant, notwithsta nding TSAT was >20% so not iron deficient in . B12 and folate from me within normal limits. Otherwise white blood cell differenti al within normal limits and appropriat e platelet count. Patient presents April 25, 2024 for follow-up regarding iron deficiency . Patient has history of iron-defic iency that was treated with IV iron in the past. Patient previously tried oral iron in the past without any improvemen t in her iron-defic iency and transition ed to IV iron. Laboratory evaluation with Dr. Escobar on 03/27/2024 indicated an iron of 30 and iron saturation of 13%. Goal ferritin greater than 50. Goal iron saturation greater than 20%. Recommend additional IV iron at this time. Patient to return to clinic in 2 months. Should you have any further questions or concerns, please feel free to give me a call at . I personally spent 25 minutes in patient care on this date reviewing records, obtaining interim history, performing a physical exam, counseling the patient, ordering and reviewing today's labs, and documentin g informatio n in the electronic health record. Abdominal pain 01588313 R10.9 Appears to have resolved. [id number] [facility] [address] [place] [address] JAKY Rico [address] 06/22/2024 09:31:00 06/22/2024 10:03:44 Iron deficiency anemia 75223364 D50.9 43-year-ol d female history of iron-defic iency anemia requiring intermitte nt iron infusions, now status post hysterecto my September 2023 with last iron infusion received shortly before. Patient has a history of SLE for which she is on Plaquenil and followed by Rheumatandrei gy. She indicates that she is experienci ng subjective flare at this time with increased fatigue and joint pains and has follow-up with Rheumatandrei gy in the next 2 weeks. Labs from December 2023 reviewed with hemoglobin 12.4, MCV 81, ferritin 245 with an iron sat of 29%; noted elevated inflammato ry markers with a ESR of 23 and CRP of 9.7. Potential that the ferritin of 245 is falsely elevated in the setting of underlying SLE and the ferritin is an acute phase reactant, notwithsta nding TSAT was >20% so not iron deficient in . B12 and folate from me within normal limits. Otherwise white blood cell differenti al within normal limits and appropriat e platelet count. Patient presents April 25, 2024 for follow-up regarding iron deficiency . Patient has history of iron-defic iency that was treated with IV iron in the past. Patient previously tried oral iron in the past without any improvemen t in her iron-defic iency and transition ed to IV iron. Laboratory evaluation with Dr. Escobar on 03/27/2024 indicated an iron of 30 and iron saturation of 13%. Goal ferritin greater than 50. Goal iron saturation greater than 20%. Recommend additional IV iron at this time. Patient to return to clinic in 2 months. Should you have any further questions or concerns, please feel free to give me a call at . I personally spent 25 minutes in patient care on this date reviewing records, obtaining interim history, performing a physical exam, counseling the patient, ordering and reviewing today's labs, and documentin g informatio n in the electronic health record. Health Concerns Section Related Observation LastModified by Organization Detai ls LastModified Time None Recorded Concern Status LastModified by Organization Details LastModified Time None Recorded Advance Directives Directive N: Payers Encounter Date Sequence Insurance Name Policy Number Policy Mead Covered Member ID Mead Member ID Guarantor Name 12/23/2023 1 [place] [id number] 3 [facility] [id number] 25 Bridget Gomez 12/30/2023 1 [place] [id number] 3 [facility] [id number] 25 Bridget Gomez 03/27/2024 1 [place] [id number] 3 [facility] [id number] 25 Bridget Gomez 04/20/2024 1 [place] [id number] 3 [facility] [id number] 25 Bridget Gomez 06/22/2024 1 [place] [id number] 3 [facility] [id number] 25 Bridget Gomez Notes Date Note Type [...] today-Taking naproxen and flexeril for pain-E3SF RYLEE CRUZ, DO [address] [facility],[address], [place], [address], [facility] [place] 12/26/2023 12:27:23 12/30/2023 text/html 43-year-old martina worrell [...] colonoscopy for 10 years. MARGARITA WAITE NP [address] [place] [address],[address], [place], [address], [facility] & [place] 01/02/2024 18:18:32 03/27/2024 text/html 43-year-old martina worrell [...] epistaxis, hemoptysis, hematemesis, melena, hematochezia, hematuria. MAHNAZ ESCOBAR MD [address] [place] [address],[address], [place], [address], [facility] & [place] 03/27/2024 14:18:20 04/20/2024 text/html 43-year-old martina worrell [...] for 10 years. MARGARITA WAITE, ANTOINE [address] [facility],[address], [place], [address], [facility] & [place] 04/25/2024 16:38:22 OBGyn Episode No OBEpisode recorded.
== END 2024-11-15 23:59 | disposition home or self-care (01) ==
LOC: SC.PAIN 09:46
PROVIDERS: PCP Family Medicine; Visit Provider Nurse Practitioner Family
DX: G89.4 Chronic pain syndrome (principal); M51.369 Other intervertebral disc degeneration, lumbar region without mention of lumbar back pain or lower extremity pain; M25.551 Pain in right hip; M25.552 Pain in left hip; Z87.891 Personal history of nicotine dependence
CPT/HCPCS: 99212; 99213; G0463

== ENCOUNTER 2024-12-10 10:31 | Outpatient (POV) | payer OTHER, SELFPAY ==
--- OUTSIDE RECORDS SUMMARY | 2024-12-10 10:35 | XMS_ITS | Continuity of Care Document ---
Author Organization [facility] [place] [facility] Address [address] [place] [address] Care Team Providers Care Home Delivery Driver Name Role Phone BERNARD VOGT Primary Care Provider [phone] Assessment No assessment recorded. Plan of Treatment Reminders Order Date Submit Date Provider Last Modified By Organization Details Last Modified Time Details Appointments None recorded. Lab vitamin B12 + folate, serum or blood 2024 025 [facility] (Registration ), [place], [address], 5 12:12:53 vitamin D, 25-hydrox y, total, serum 2024 025 [facility] (Registration ), [place], [address], 5 09:12:58 CBC w/ auto diff 2024 025 [facility] (Registration ), [place], [address], 5 08:56:24 ferritin, serum or plasma [address] [place] [address] (Registration ), [place], [address], 5 08:56:24 iron + total iron-bind ing capacity (TIBC), serum 2024 025 [facility] (Registration ), [address] , [place], [address], 5 08:56:24 Referral None recorded. Procedures None recorded. Surgeries None recorded. Imaging None recorded. Medication Orders None recorded. Patient TargetsNo targets recorded. Patient InstructionsNo instructions recorded. Reason for Referral None Reported. Problems Name Problem SNOMED Code Status Onset Date Resolution Date Notes Provider Name and Address Organization Details Recorded Time Cyst of right ovary [id number] 9108 Active 2018 Milton hudson [place] - [facility] - [place] & [place] 3 12:19:18 Chronic obstructive pulmonary disease 35747920 Active 2019 Milton [place]udson [place] [facility] [place] 3 12:19:18 Leiomyoma 6665318022586 03 Active 2018 Milton [place]udson [place] [facility] [place] 3 12:19:18 Constipatio n 98330503 Active 2018 Milton [place] [facility] [place] 3 12:19:18 Indigestion 681198868 Active 2016 [place] [facility] [place] 3 12:19:18 Vulval pain 526939627 Active 2021 Milotn hudson [place] [facility] [place] 3 12:19:18 Folic acid deficiency 481976857 Active 2021 [place] [facility] [place] [facility] & [place] 3 12:19:18 Asthma 135080323 Active 2019 [place] [facility] [place] [facility] & [place] 3 12:19:18 Fibromyalgi a 215347277 Active 2016 [place] [facility] [place] 3 12:19:18 Syncope 385161847 Active 2016 Milton Rangel [place] [facility] [place] 3 12:19:18 Low back pain 473436146 Active 2021 Milton R[place] [facility] [place] 3 12:19:18 Orthostatic hypotension 52093123 Active 2016 Milton Rangel [place] [facility] [place] 3 12:19:18 Pain in pelvis 41963947 Active 2018 Milton R[place] [facility] [place] 3 12:19:18 Iron deficiency 17863094 Active 2018 Milton [place]udson [place] [facility] [place] 3 12:19:18 Migraine 63298327 Active 2017 Milton hudsonJAKY - [facility] - [place] & [place] 3 12:19:18 Hypertensiv e disorder 61515819 Active 2016 Milton Rangel [place] [facility] [place] 3 12:19:18 Hypokalemia 52340070 Active 2021 Milton hudsonJAKY - [facility] - [place] & [place] 3 12:19:18 Hyperlipide hector 93441785 Active 2016 Milton [place]udson, [place] [facility] [place] 3 12:19:18 Wheezing 29175329 Active 2019 Milton R[place] [facility] [place] [facility] & [place] 3 12:19:18 Occult blood detected in feces 42903884 Active 2021 Milton [place]udson [place] [facility] [place] 3 12:19:18 Cyst of vulva 86071467 Active 2021 Milton [place] [facility] [place] 3 12:19:18 History of bariatric surgical procedure 686423783 Active 2018 Milton Juan Carlos [place] [facility] [place] & [place] 3 12:19:18 Nocturnal cough 53920949 Active 2019 Milton Rangel [place] [facility] [place] 3 12:19:18 Dyspareunia 00104351 Active 2018 Milton R[place] [facility] [place] 3 12:19:18 Smoker 97313926 Active 2018 [place] [facility] [place] 3 12:19:18 COVID-19 289258138 Active 2020 Milton hudson[place] [facility] [place] & [place] 3 12:19:18 Suspected COVID-19 460278956 Active 2019 Milton Rangel [place] [facility] [place] 3 12:19:18 Uterine leiomyoma 19647489 Active 2018 Milton Rangel [place] [facility] [place] 3 12:19:18 Iron deficiency anemia 28032042 Active 2022 Milton [place]udson[place] [facility] [place] 3 12:19:18 Labial cyst 324062824 Active Milton [place]udson[place] [facility] [place] 3 12:19:18 Esophageal dysmotility 505566193 Active 2022 Charles Jorge MD [address] [facility] [address], [place], [address], [place] [facility] [place] 3 14:35:53 Iron deficiency without anemia 010934769 Active 2022 MARGARITA WAITE NP [address] [facility] [address], [place], [address], [place] [facility] [place] 3 10:17:40 Pain of joint 49046748 Active 2023 MARGARITA WAITE NP [address] [place] [address],[address], [place], [address], [place] [facility] & [place] 4 18:18:09 Fatigue 02079351 Active 2023 MARGARITA WAITE NP [address] [place] [address],[address], [place], [address], [place] [facility] [place] [facility] & [place] 5 12:52:35 Abdominal pain 79815390 Active 2023 MAHNAZ VALENCIA MD [address] [place] [address],[address], [place], [address], [place] [facility] [place] [facility] & [place] 4 14:07:29 Problem Notes None recorded. Procedures Surgical History Date Name Laterality Status Provider Name and Address Organization Details Recorded Time 06/22/20 24 Venipuncture completed Radha STARKEY - [facility] - [place] & [place] 06/22/2024 10:11:17 08/08/19 24 Date of Last Pap Smear completed Marie Claytons [place] [facility] [place] 09/30/2023 09:33:55 08/08/19 24 [employer] Surgery completed Marie Claytons [place] [facility] [place] [facility] & [place] 09/30/2023 09:35:11 06/08/20 23 Date of Last Colonoscopy completed Marie Claytons [place] [facility] [place] [facility] & [place] 09/30/2023 09:33:55 05/17/20 23 EGD/Endoscopy completed Milton STARKEY - [facility] & [place] 05/31/2023 13:57:35 05/08/20 23 completed Marie Lal [place] [facility] [place] & [place] 09/30/2023 09:33:55 08/08/19 22 [employer] Surgery completed Milton STARKEY - [facility] - [facility] & [place] 05/30/2023 12:43:54 08/08/19 20 maintenance of gastric band completed Milton STARKEY - [facility] & [place] 04/25/2023 15:33:56 08/08/19 17 laparoscopic adjustable gastric banding completed Milton FRANCISCO [facility] & [place] 04/25/2023 15:33:36 08/08/19 07 Other completed Milton FRANCISCO [facility] & [place] 05/31/2023 13:58:12 08/08/19 05 section completed Milton [facility]ANCISCO [facility] & [place] 04/25/2023 15:33:12 08/08/19 05 Abdominal Surgery completed Milton FRANCISCO [facility] & [place] 05/30/2023 12:43:54 08/08/19 02 Dilation and Curettage completed Milton [facility]ANCISCO [facility] & [place] 04/25/2023 15:33:23 01/06/19 69 Most Recent Bone Density completed Marie Shimons [facility] & [place] 09/30/2023 09:33:55 resection of polyp completed Milton FRANCISCO [facility] & [place] 04/25/2023 15:34:32 extraction of wisdom tooth completed Milton FRANCISCO [facility] & [place] 04/25/2023 15:35:11 Imaging Results None recorded. Procedure Notes None recorded. Medical Equipment None Reported. Allergies Allergen ID Allergen Name Allergen Category Reaction Reaction Severity Criticality Documentation Date Start Date Code Code System Note Provider Name and Address Organization Details Recorded Time 84492 Claritin- D medicatio n Not available Not available Not available 04/07/20232007 74569 6 RxNorm Marie hudson JAKY [facility] & [place] 14:52:00 46501 chlorphen iramine medicatio n dyspnea moderate Not available 05/31/20232021 2400 RxNorm Milton hudson [facility] & [place] 12:19:34 67616 phenylpro panolamin e medicatio n dyspnea moderate Not available 05/31/20232021 8175 RxNorm Milton hudson [facility] & [place] 10/24/202 3 12:19:34 Medications Name Sig Start Date [...] e-DM 6.25 mg-15 mg/5 mL oral syrup TAKE 5ML BY MOUTH FOUR TIMES DAILY NEEDED FOR COUGH active Not Available Not Available No t Available nystatin 100,000 unit/mL oral suspension 04/07 completed Not Available Not Available Not Available prednisone 10 mg tablet TAKE ONE (1) TABLET TWICE A DAY BY ORAL ROUTE FOR FIVE (5) DAYS. 11/21 completed Not Available Not Available Not Available doxycycline hyclate 100 mg capsule TAKE ONE (1) CAPSULE TWICE A DAY BY ORAL ROUTE AFTER MEAL(S) FOR 10 DAYS. 11/21 completed Not Available Not Available Not Available nicotine 14 mg/24 hr daily transdermal [...] completed Not Available Not Available Not Available azithromyci n 250 mg tablet TAKE TWO (2) TABLETS (500 MG) BY ORAL ROUTE ONCE DAILY FOR ONE (1) DAY THEN ONE (1) TABLET (250 MG) BY ORAL ROUTE ONCE DAILY FOR FOUR (4) DAYS 11/21 completed Not Available Not Available Not Available pravastatin 40 mg tablet Take 1 tablet every day by oral route. 12/23 completed Not Available Not Available Not Available ibuprofen 800 mg tablet TAKE ONE (1) TABLET THREE (3) TIMES A DAY BY ORAL ROUTE AFTER MEAL(S) FOR 90 DAYS. active Not Available Not Available No t Available benzonatate 200 mg capsule Take 1 [...] 250 mg capsule TAKE ONE (1) CAPSULE EVERY DAY BY ORAL ROUTE AFTER MEAL(S) FOR 90 DAYS. active Not Available Not Available No t Available hydrocodone 5 mg-acetamin ophen 325 mg tablet TAKE ONE (1) TABLET ORAL ROUTE THREE (3) TIMES PER DAY NEEDED FOR PAIN 11/21 completed Not Available Not Available Not Available [...] Not Available phentermine 37.5 mg tablet TAKE 1 TABLET BY MOUTH EVERY DAY BEFORE A MEAL active Not Available Not Available No t Available acetaminoph en 300 mg-codeine 30 mg tablet TAKE ONE (1) TABLET FOUR (4) TIMES A DAY BY ORAL ROUTE NEEDED FOR 7 DAYS. active Not Available Not Available No t Available ciprofloxac in 500 mg tablet TAKE ONE (1) TABLET EVERY 12 HOURS BY ORAL ROUTE FOR 7 DAYS. 05/26 completed Not Available Not Available Not Available sulfamethox azole 800 mg-trimetho prim 160 mg tablet TAKE 1 TABLET BY MOUTH TWICE DAILY 11/21 completed Not Available Not Available Not Available [...] Available Not Available ketorolac 10 mg tablet TAKE ONE (1) TABLET BY MOUTH FOUR (4) TIMES DAILY FOR CHRONIC BACK PAIN, DO NOT EXCEED FOUR (4) TABLETS IN 24 HOURS, DO NOT TAKE MORE THAN FIVE (5) DAYS IN A ROW active Not Available Not Available No t Available oxycodone-a cetaminophe n 5 mg-325 mg [...] 10 mg capsule TAKE ONE (1) CAPSULE BY MOUTH EVERY DAY AFTER A MEAL active Not Available Not [...] Not Available Not Available No t Available lisinopril 10 mg-hydrochl orothiazide 12.5 mg tablet take 1 tablet by oral route once daily for 90 days 12/06 completed Not Available Not Available Not Available prednisone 5 mg tablets in a dose pack TAKE DIRECTED 11/21 completed Not Available Not Available Not Available [...] TWICE A DAY BY ORAL ROUTE DIRECTED 11/21 completed Not Available Not Available Not Available escitalopra m 5 mg tablet TAKE [...] Available Not Available Not Available Lamar Canales [facility] spacer 05/11 completed Not Available Not Available [...] completed Not Available Not Available Not Available [facility] disintegrat ing tablet TAKE [...] and Address Organization Details Last Updated DateTime 5 162.56 cm 37.5 kg/m2 61253.5 7 g 98.6 [degF] 99 % 99 % 101 /min 16 /min 140 mm[Hg] 90 mm[Hg] Marie Rosetta [facility] & [place] 5 15:05:04 Social History Question Answer Notes LastModified by Organizat ion Details LastModified Time Tobacco Smoking Status Former Smoker Milton Interianoeri [facility] & [place] 04/25/2023 15:31:36 Do You [...] Anxious, Or Unable To Sleep At Night)? [id number] Information not available 05/30/2023 Do You Use Any Illicit Or Recreational Drugs? Yes Information not available 04/25/2023 How Many Years Have You Smoked Tobacco? 20 [email or web address] Information not available 12/30/2023 Have You Used IV Drugs? No Information not available 05/31/2023 Sex: Unknown Functional Status Question Answer Note LastModified by Organization D etails LastModified Time What is your exercise level? None Information not available 12/30/2023 Mental Status None [...] Hepatitis N Cirrhosis N Liver Disease N Heart Disease N Psychiatric/Mental Health Condition Y Headaches Y Hypertension Y Kidney Disease N [...] virus, quadrivalent, preservative 0 completed Not Available [facility] 05/18/2023 01:43:07 Influenza, split virus, quadrivalent, preservative 9 completed Not Available [facility] 05/18/2023 01:43:07 Influenza, split virus, quadrivalent, preservative 8 completed Not Available [facility] 05/18/2023 01:43:07 Influenza, split virus, quadrivalent, preservative 1 completed Not Available [facility] 05/18/2023 01:43:08 Influenza, split virus, quadrivalent, preservative 7 completed Not Available [facility] 05/18/2023 01:43:08 COVID-19 vaccine, vector-nr, [id number], PF, 0.5 mL 1 completed Not Available [facility] 05/18/2023 01:43:08 influenza, unspecified formulation 3 completed Not Available [facility] 05/18/2023 01:43:08 influenza, unspecified formulation 5 completed Not Available [facility] 05/18/2023 01:43:08 influenza, unspecified formulation 4 completed Not Available [facility] 05/18/2023 01:43:08 influenza, unspecified formulation 2 completed Not Available [facility] 05/18/2023 01:43:08 Tdap 1 completed Not Available [facility] 05/18/2023 01:43:08 Tdap 9 completed Not Available [facility] 05/18/2023 01:43:08 Influenza, split virus, trivalent, PF 2 completed Not Available [facility] 05/18/2023 01:43:08 Hep A, adult 9 completed Not Available [facility] 05/18/2023 01:43:08 Hep A, adult 9 completed Not Available [facility] 05/18/2023 01:43:08 influenza, unspecified formulation 2 completed Not Available [facility] 05/18/2023 01:43:08 influenza, unspecified formulation 3 completed JAKY [facility] & [place] 05/31/2023 12:23:17 Past Encounters Encounter ID Performer Location Encounter Start Date Encounter Closed Date Diagnosis/Indication Diagnosis SNOMED-CT Code Diagnosis ICD10 Code Diagnosis Note [id number] [facility] [address] [place] [address] 11/21/2024 14:50:08 11/21/2024 15:38:21 Iron deficiency anemia 35231426 D50.9 43-year-ol d female history of iron-defic iency anemia requiring intermitte nt iron infusions, now status post hysterecto my September 2023 with last iron infusion received shortly before. Patient has a history of SLE for which she is on Plaquenil and followed by Rheumatandrei garcia. She indicates that she is experienci ng [...] within normal limits and appropriat e platelet count.____ Patient presents November 21, 2024 for follow-up regarding iron deficiency . [...] 50. Goal iron saturation greater than 20%. Patient to return to clinic in 6 months. Should you have any further questions or concerns, please feel free to give me a call at . I personally spent 25 minutes in patient care on this date reviewing records, obtaining interim history, performing a physical exam, counseling the patient, ordering and reviewing today's labs, and documentin g informatio n in the electronic health record. Fatigue 14614117 R53.83 Patient with persistent fatigue. Recommend evaluate for other vitamin deficienci es. Health Concerns Section Related Observation LastModified by Organization Detai ls LastModified Time None Recorded Concern Status LastModified by Organization Details LastModified Time None Recorded Payers Encounter Date Sequence Insurance Name Policy Number Policy Mead Covered Member ID Mead Member ID Guarantor Name 11/21/2024 1 [id number] Rosendo Gomez [id number] Luz Gomez Notes Date Note Type Note Provider Name and Address Organization Details Recorded Time 11/21/2024 text/html 43-year-old martina worrell returns to clinic [...] hemoptysis, hematemesis, melena, hematochezia, hematuria. Patient presents November 21, 2024 for follow-up regarding iron deficiency. Patient notes she is doing well although she complains of continued fatigue. She reports cravings for ice. She denies chest or abdominal pain. She denies palpitations or shortness of breath. She denies fever, chills, or night sweats. She denies any overt bleeding or changes in bowel habits. She is eating and drinking well. MARGARITA WAITE, ANTOINE [address] [facility],[address], [place], [address], [facility] - [place] & [place] 12/06/2024 12:53:04 OBGyn Episode No OBEpisode recorded.
--- OUTSIDE RECORDS SUMMARY | 2024-12-10 10:36 | XMS_ITS | Data Portability ---
Author Organization [place] - [facility] Address [address] [place] [address] Care Team Providers Care Software Product Specialist Name Role Phone BERNARD VOGT Primary Care Provider [phone] Assessment No assessment recorded. Plan of Treatment Reminders Order Date Submit Date Provider Last Modified By Organization Details Last Modified Time Details Appointments None recorded. Lab vitamin B12 + folate, serum or blood 2024 025 [facility] (Registration ), [address], [place], [address], 5 12:12:53 vitamin D, 25-hydroxy , total, serum 2024 025 [facility] (Registration ), [address], [place], [address], 5 09:12:58 CBC w/ auto diff 2024 025 [facility] (Registration ), [address], [place], [address], 5 08:56:24 ferritin, serum or plasma 2024 025 [facility] (Registration ), [place], [address], 5 08:56:24 iron + total iron-macario ng capacity (TIBC), serum 2024 025 [facility] (Registration ), [address], [place], [address], 5 08:56:24 CBC w/ auto diff 2023 024 [facility] (Registration ), [address], [place], [address], 4 13:46:11 iron + TIBC + ferritin, serum [address] (Registration ), [address], [place], [address], 5 13:49:02 iron saturation , serum [address] (Registration ), [address], [place], [address], 5 13:49:03 CBC w/ auto diff 2023 024 [facility] (Registration ), [address], [place], [address], 5 05:01:22 iron + TIBC + ferritin, serum 2023 024 [facility] (Registration ), [address], [place], [address], 4 16:17:41 transferri n receptor, soluble, serum 2023 024 [facility] (Registration ), [address], [place], [address], 5 05:01:23 iron saturation , serum 2023 024 [facility] (Registration ), [place], [address], 5 05:01:24 CBC w/ auto diff 2023 [facility] (Registration ), [address], [place], [address], 4 13:13:24 iron + TIBC + ferritin, serum 2023 [facility] (Registration ), [address], [place], [address], 4 11:59:38 iron saturation , serum 2023 [facility] (Registration ), [address], [place], [address], 4 11:59:38 ADELA (antinucle ar antibodies ) screen, serum 2023 [facility] (Registration ), [address], [place], [address], 4 11:59:38 ESR (erythrocy te sedimentat ion rate), blood 2023 [facility] (Registration ), [address], [place], [address], 4 14:24:21 C-reactive protein, quantitati ve, serum or plasma 2023 024 [facility] (Registration ), [place], [address], 4 14:36:14 vitamin B12 + folate, serum or blood 2023 [facility] (Registration ), [place], [address], 4 08:18:33 Referral None recorded. Procedures None recorded. Surgeries None recorded. Imaging None recorded. Medication Orders Feraheme 510 mg/17 mL (30 mg/mL) intravenou s solution [address], [address], 4 16:37:32 Patient TargetsNo targets recorded. Patient InstructionsNo instructions recorded. Reason for Referral None Reported. Results Created Date Observation Date Name Description Value Unit Range Abnormal Flag Note LastModifiedBy Organization Detail LastModifiedTime 12/30/1912/30/2023 CBC W/AUT O DIFFE RENTI AL note SEE NOTE Order ing Provi yemi: Ria lee THERMAL MOLDER Not Available [address] , [place], [address], 12/30/2023 13:13:23 12/30/19 24 12/30/2023 CBC W/AUT O DIFFE RENTI AL white blood cell 6.4 10e3/ uL 4.5-13 .0 normal Not Available [address] [place], [place], [address], 12/30/2023 13:13:23 12/30/19 24 12/30/2023 CBC W/AUT O DIFFE RENTI AL red blood cell 4.56 10e6/ uL 3.80-5 .10 normal Not Available [address] [place], [place], [address], 12/30/2023 13:13:23 12/30/19 24 12/30/2023 CBC W/AUT O DIFFE RENTI AL hemoglobin 12.4 g/dL 11.5-1 5.3 normal Not Available [address] , [place], [address], 12/30/2023 13:13:23 12/30/19 24 12/30/2023 CBC W/AUT O DIFFE RENTI AL hematocrit 37.1 % 34.0-4 6.0 normal Not Available [address] [place], [place], [address], 12/30/2023 13:13:23 12/30/19 24 12/30/2023 CBC W/AUT O DIFFE RENTI AL mean cell volume 81 fL 78.0-9 8.0 normal Not Available [place] [address], [place], [address], 12/30/2023 13:13:23 12/30/19 24 12/30/2023 CBC W/AUT O DIFFE RENTI AL mean cell HGB 27.2 pg 25.0-3 5.0 normal Not Available [place] [address], [place], [address], 12/30/2023 13:13:23 12/30/19 24 12/30/2023 CBC W/AUT O DIFFE RENTI AL mean cell HGB concentratio n 33.4 g/dL 31.0-3 6.0 normal Not Available [place] [address], [place], [address], 12/30/2023 13:13:23 12/30/19 24 12/30/2023 CBC W/AUT O DIFFE RENTI AL red cell distribution width 13.1 % 11.0-1 5.0 normal Not Available [address] [place], [place], [address], 12/30/2023 13:13:23 12/30/19 24 12/30/2023 CBC W/AUT O DIFFE RENTI AL platelet count 236 10e3/ uL 150-40 0 normal Not Available [place] [address], [place], [address], 12/30/2023 13:13:23 12/30/19 24 12/30/2023 CBC W/AUT O DIFFE RENTI AL immature granulocyte % 0 0-1 normal Not Available [address] , [place], [address], 12/30/2023 13:13:23 12/30/19 24 12/30/2023 CBC W/AUT O DIFFE RENTI AL neutrophil % 68 % 35-75 normal Not Available [address] [place], [place], [address], 12/30/2023 13:13:23 12/30/19 24 12/30/2023 CBC W/AUT O DIFFE RENTI AL lymphocyte % 24 % 10-50 normal Not Available [address] , [place], [address], 12/30/2023 13:13:23 12/30/19 24 12/30/2023 CBC W/AUT O DIFFE RENTI AL monocyte % 6 % 0-15 normal Not Available [address] [place], [place], [address], 12/30/2023 13:13:23 12/30/19 24 12/30/2023 CBC W/AUT O DIFFE RENTI AL eosinophil % 2 % 0-5 normal Not Available [address] [place], [place], [address], 12/30/2023 13:13:23 12/30/19 24 12/30/2023 CBC W/AUT O DIFFE RENTI AL basophil % 1 % 0-5 normal Not Available [address] [place], [place], [address], 12/30/2023 13:13:23 12/30/19 24 12/30/2023 CBC W/AUT O DIFFE RENTI AL immature granulocyte # 0.02 x1000 /uL 0-0.05 normal Not Available [address] [place], [address], 12/30/2023 13:13:23 12/30/19 24 12/30/2023 CBC W/AUT O DIFFE RENTI AL neutrophil # 4.37 x1000 /uL 1.50-8 .00 normal Not Available [address] [place], [place], [address], 12/30/2023 13:13:23 12/30/19 24 12/30/2023 CBC W/AUT O DIFFE RENTI AL lymphocyte # 1.54 x1000 /uL 1.20-5 .20 normal Not Available [address] [place], [place], [address], 12/30/2023 13:13:23 12/30/19 24 12/30/2023 CBC W/AUT O DIFFE RENTI AL monocyte # 0.35 x1000 /uL 0.40-0 .90 low Not Available [address] [place], [place], [address], 12/30/2023 13:13:23 12/30/19 24 12/30/2023 CBC W/AUT O DIFFE RENTI AL eosinophil # 0.10 x1000 /uL 0.00-0 .50 normal Not Available [place] [address], [place], [address], 12/30/2023 13:13:23 12/30/19 24 12/30/2023 CBC W/AUT O DIFFE RENTI AL basophil # 0.04 x1000 /uL 0.00-0 .30 normal Not Available [place] [address], [place], [address], 12/30/2023 13:13:23 12/30/19 24 12/30/2023 CBC W/AUT O DIFFE RENTI AL NRBC automated 0.0 /100_ WBC Not Available [address] [place], [place], [address], 12/30/2023 13:13:23 12/30/19 24 12/30/2023 CBC W/AUT O DIFFE RENTI AL performing lab SEE NOTE ML - [facility] [address] [place] [address] Not Available [address] , [place], [address], 12/30/2023 13:13:23 12/30/19 24 12/30/2023 FE W/TOT AL IRON MACARIO NG CAP note SEE NOTE Order ing Provi yemi: Ria lee APRN Not Available [address] , [place], [address], 12/30/2023 14:20:52 12/30/19 24 12/30/2023 FE W/TOT AL IRON MACARIO NG CAP iron 72 ug/dL 50-170 normal Not Available [address] , [place], [address], 12/30/2023 14:20:52 12/30/19 24 12/30/2023 FE W/TOT AL IRON MACARIO NG CAP total iron binding capacity 245 ug/dL 260-44 5 low Not Available [address] , [place], [address], 12/30/2023 14:20:52 12/30/19 24 12/30/2023 FE W/TOT AL IRON MACARIO NG CAP iron saturation 29 % 20-50 normal Not Available [address] [place], [place], [address], 12/30/2023 14:20:52 12/30/19 24 12/30/2023 FE W/TOT AL IRON MACARIO NG CAP performing lab SEE NOTE ML - [facility] [address] [place] [address] Not Available [address] , [place], [address], 12/30/2023 14:20:52 12/30/19 24 12/30/2023 SEDIM ENTAT ION RATE note SEE NOTE Order ing Provi yemi: Ria lee THERMAL MOLDER Not Available [address] , [place], [address], 12/30/2023 14:24:21 12/30/19 24 12/30/2023 SEDIM ENTAT ION RATE sedimentatio n rate 23 mm/HR 0-20 high Not Available [address] , [place], [address], 12/30/2023 14:24:21 12/30/19 24 12/30/2023 SEDIM ENTAT ION RATE performing lab SEE NOTE ML - [facility] [address] [facility] [address] Not Available [address] , [place], [address], 12/30/2023 14:24:21 12/30/19 24 12/30/2023 C-JASON CTIVE PROTE IN note SEE NOTE Order ing Provi yemi: Ria lee THERMAL MOLDER Not Available [address] , [place], [address], 12/30/2023 14:36:14 12/30/19 24 12/30/2023 C-JASON CTIVE PROTE IN C-reactive protein 9.7 mg/L <5.0 high NOT E NEW REFER ENCE RANGE S Not Available [address] , [place], [address], 12/30/2023 14:36:14 12/30/19 24 12/30/2023 C-JASON CTIVE PROTE IN performing lab SEE NOTE ML - [facility] [address] [facility] [address] Not Available [address] , [place], [address], 12/30/2023 14:36:14 12/30/19 24 12/30/2023 CHARIS TIN note SEE NOTE Order ing Provi yemi: Ria lee THERMAL MOLDER Not Available [address] , [place], [address], 12/30/2023 14:36:15 12/30/19 24 12/30/2023 CHARIS TIN ferritin 273 NG/mL 8-252 high Not Available [address] , [place], [address], 12/30/2023 14:36:15 12/30/19 24 12/30/2023 CHARIS TIN performing lab SEE NOTE ML - [facility] [address] [place] [address] Not Available [address] , [place], [address], 12/30/2023 14:36:15 12/30/19 24 12/30/2023 VITAM IN B12 FOLAT E note SEE NOTE Order ing Provi yemi: Ria lee THERMAL MOLDER Not Available [address] , [place], [address], 12/31/2023 08:18:33 12/30/1912/30/2023 VITAM IN B12 FOLAT E vitamin B12 643 pg/mL 232-12 45 Not Available [address] , [place], [address], 12/31/2023 08:18:33 12/30/19 24 12/30/2023 VITAM IN B12 FOLAT E folic acid 4.6 NG/mL >3.0 . A serum folat e felix ntrat ion of less than 3.1 ng/mL is consi dered to repre sent clini tyrone defic iency . Perfo rmed At: CB, [facility] [address] [facility], [place], [address] 6631 Enrico hurtado, PhD, Phone : [phone] Not Available [address] [place], [address], 12/31/2023 08:18:33 12/30/19 24 12/30/2023 VITAM IN B12 FOLAT E performing lab SEE NOTE LC2 - [facility] CLIEN T# [id number] [address] [place] [address] Not Available [address] [place], [address], 12/31/2023 08:18:33 12/30/19 24 12/30/2023 ANTIN UCLEA R ANTIB ODIES TITER note See Note Order ing Provi yemi: Ria lee THERMAL MOLDER Not Available [address] , [place], [address], 01/03/2024 15:37:04 12/30/19 24 12/30/2023 ANTIN UCLEA R ANTIB ODIES TITER ADELA screen Negati ve () Negat lona <1:80 Borde rline 1:80 Posit lona >1:80 ICAP nomen tavia re: AC-0 For more infor reyna ibrahim about Hep-2 cell patte rns use ANApa ttern s.org , the offic ial susy te for the Inter natio nal Conse nsus on Antin uclea r Antib ilsa (ADELA) Patte rns (ICAP ). Perfo rmed At: CB, [facility] [address] [facility], [place], [address] 5033 Enrico hurtado, PhD, Phone : [phone] Not Available [address] [place], [address], 01/03/2024 15:37:04 12/30/19 12/30/2023 ANTIN UCLEA R ANTIB ODIES TITER performing lab see note LC2 - LAB[facility] RP CLIEN T# [id number] 022 [address] [place] [address] Not Available [address] , [place], [address], 01/03/2024 15:37:04 06/22/20 24 06/22/2024 CBC W/AUT O DIFFE RENTI AL note SEE NOTE Order ing Provi yemi: Ria angelica Carmona ell THERMAL MOLDER Not Available [address] [place], [address], 06/22/2024 13:46:11 06/22/20 24 06/22/2024 CBC W/AUT O DIFFE RENTI AL white blood cell 5.8 10e3/ uL 4.5-13 .0 normal Not Available [address] [place], [place], [address], 06/22/2024 13:46:11 06/22/20 24 06/22/2024 CBC W/AUT O DIFFE RENTI AL red blood cell 4.99 10e6/ uL 3.80-5 .10 normal Not Available [address] [place], [address], 06/22/2024 13:46:11 06/22/2006/22/2024 CBC W/AUT O DIFFE RENTI AL hemoglobin 13.0 g/dL 11.5-1 5.3 normal Not Available [address] [place], [address], 06/22/2024 13:46:11 06/22/20 24 06/22/2024 CBC W/AUT O DIFFE RENTI AL hematocrit 39.3 % 34.0-4 6.0 normal Not Available [address] [place], [address], 06/22/2024 13:46:11 06/22/20 24 06/22/2024 CBC W/AUT O DIFFE RENTI AL mean cell volume 79 fL 78.0-9 8.0 normal Not Available [address] [place], [place], [address], 06/22/2024 13:46:11 06/22/20 24 06/22/2024 CBC W/AUT O DIFFE RENTI AL mean cell HGB 26.1 pg 25.0-3 5.0 normal Not Available [address] [place], [place], [address], 06/22/2024 13:46:11 06/22/20 24 06/22/2024 CBC W/AUT O DIFFE RENTI AL mean cell HGB concentratio n 33.1 g/dL 31.0-3 6.0 normal Not Available [address] [place], [place], [address], 06/22/2024 13:46:11 06/22/20 24 06/22/2024 CBC W/AUT O DIFFE RENTI AL red cell distribution width 12.8 % 11.0-1 5.0 normal Not Available [address] [place], [place], [address], 06/22/2024 13:46:11 06/22/20 24 06/22/2024 CBC W/AUT O DIFFE RENTI AL platelet count 182 10e3/ uL 150-40 0 normal Not Available [address] [place], [place], [address], 06/22/2024 13:46:11 06/22/20 24 06/22/2024 CBC W/AUT O DIFFE RENTI AL immature granulocyte % 0 0-1 normal Not Available [address] [place], [place], [address], 06/22/2024 13:46:11 06/22/20 24 06/22/2024 CBC W/AUT O DIFFE RENTI AL neutrophil % 66 % 35-75 normal Not Available [address] , [place], [address], 06/22/2024 13:46:11 06/22/20 24 06/22/2024 CBC W/AUT O DIFFE RENTI AL lymphocyte % 23 % 10-50 normal Not Available [address] [place], [place], [address], 06/22/2024 13:46:11 06/22/20 24 06/22/2024 CBC W/AUT O DIFFE RENTI AL monocyte % 6 % 0-15 normal Not Available [address] , [place], [address], 06/22/2024 13:46:11 06/22/20 24 06/22/2024 CBC W/AUT O DIFFE RENTI AL eosinophil % 3 % 0-5 normal Not Available [address] , [place], [address], 06/22/2024 13:46:11 06/22/20 24 06/22/2024 CBC W/AUT O DIFFE RENTI AL basophil % 1 % 0-5 normal Not Available [address] [place], [place], [address], 06/22/2024 13:46:11 06/22/20 24 06/22/2024 CBC W/AUT O DIFFE RENTI AL immature granulocyte # 0.02 x1000 /uL 0-0.05 normal Not Available [address] , [place], [address], 06/22/2024 13:46:11 06/22/20 24 06/22/2024 CBC W/AUT O DIFFE RENTI AL neutrophil # 3.83 x1000 /uL 1.50-8 .00 normal Not Available [address] [place], [place], [address], 06/22/2024 13:46:11 06/22/20 24 06/22/2024 CBC W/AUT O DIFFE RENTI AL lymphocyte # 1.36 x1000 /uL 1.20-5 .20 normal Not Available [address] , [place], [address], 06/22/2024 13:46:11 06/22/20 24 06/22/2024 CBC W/AUT O DIFFE RENTI AL monocyte # 0.36 x1000 /uL 0.40-0 .90 low Not Available [address] , [place], [address], 06/22/2024 13:46:11 06/22/20 24 06/22/2024 CBC W/AUT O DIFFE RENTI AL eosinophil # 0.16 x1000 /uL 0.00-0 .50 normal Not Available [address] [place], [place], [address], 06/22/2024 13:46:11 06/22/20 24 06/22/2024 CBC W/AUT O DIFFE RENTI AL basophil # 0.08 x1000 /uL 0.00-0 .30 normal Not Available [address] [place], [place], [address], 06/22/2024 13:46:11 06/22/20 24 06/22/2024 CBC W/AUT O DIFFE RENTI AL NRBC automated 0.0 /100_ WBC Not Available [address] , [place], [address], 06/22/2024 13:46:11 06/22/20 24 06/22/2024 CBC W/AUT O DIFFE RENTI AL performing lab SEE NOTE - [facility] [address] [facility] [place] [address] Not Available [address] [place], [place], [address], 06/22/2024 13:46:11 06/22/20 24 06/22/2024 FE W/TOT AL IRON MACARIO NG CAP note SEE NOTE Order ing Provi yemi: Ria lee THERMAL MOLDER Not Available [address] , [place], [address], 06/22/2024 13:53:45 06/22/20 24 06/22/2024 FE W/TOT AL IRON MACARIO NG CAP iron 72 ug/dL 50-170 normal Not Available [address] , [place], [address], 06/22/2024 13:53:45 06/22/20 24 06/22/2024 FE W/TOT AL IRON MACARIO NG CAP total iron binding capacity 253 ug/dL 260-44 5 low Not Available [address] [place], [place], [address], 06/22/2024 13:53:45 06/22/20 24 06/22/2024 FE W/TOT AL IRON MACARIO NG CAP iron saturation 28 % 20-50 normal Not Available [address] , [place], [address], 06/22/2024 13:53:45 06/22/20 24 06/22/2024 FE W/TOT AL IRON MACARIO NG CAP performing lab SEE NOTE ML - [facility] [address] [facility] [place] [address] Not Available [address] [place], [place], [address], 06/22/2024 13:53:45 06/22/20 24 06/22/2024 CHARIS TIN note SEE NOTE Order ing Provi yemi: Ria lee THERMAL MOLDER Not Available [address] [place], [place], [address], 06/22/2024 14:11:39 06/22/20 24 06/22/2024 CHARIS TIN ferritin 505 NG/mL 8-252 high Not Available [address] [place], [place], [address], 06/22/2024 14:11:39 06/22/20 24 06/22/2024 CHARIS TIN performing lab SEE NOTE - [facility] R [address] [facility] [address] Not Available [address] , [place], [address], 06/22/2024 14:11:39 11/22/19 25 11/21/2024 CBC W/AUT O DIFFE RENTI AL note SEE NOTE Order ing Provi yemi: Ria lee THERMAL MOLDER Not Available [address] [place], [place], [address], 11/21/2024 17:04:27 11/22/19 25 11/21/2024 CBC W/AUT O DIFFE RENTI AL white blood cell 6.0 10e3/ uL 4.5-13 .0 normal Not Available [address] [place], [place], [address], 11/21/2024 17:04:27 11/22/19 25 11/21/2024 CBC W/AUT O DIFFE RENTI AL red blood cell 4.99 10e6/ uL 3.80-5 .10 normal Not Available [address] [place], [place], [address], 11/21/2024 17:04:27 11/22/19 25 11/21/2024 CBC W/AUT O DIFFE RENTI AL hemoglobin 13.2 g/dL 11.5-1 5.3 normal Not Available [address] [place], [place], [address], 11/21/2024 17:04:27 11/22/19 25 11/21/2024 CBC W/AUT O DIFFE RENTI AL hematocrit 40.0 % 34.0-4 6.0 normal Not Available [address] [place], [place], [address], 11/21/2024 17:04:27 11/22/19 25 11/21/2024 CBC W/AUT O DIFFE RENTI AL mean cell volume 80 fL 78.0-9 8.0 normal Not Available [address] [place], [place], [address], 11/21/2024 17:04:27 11/22/19 25 11/21/2024 CBC W/AUT O DIFFE RENTI AL mean cell HGB 26.5 pg 25.0-3 5.0 normal Not Available [address] [place], [place], [address], 11/21/2024 17:04:27 11/22/19 25 11/21/2024 CBC W/AUT O DIFFE RENTI AL mean cell HGB concentratio n 33.0 g/dL 31.0-3 6.0 normal Not Available [address] [place], [place], [address], 11/21/2024 17:04:27 11/22/19 25 11/21/2024 CBC W/AUT O DIFFE RENTI AL red cell distribution width 13.1 % 11.0-1 5.0 normal Not Available [address] [place], [place], [address], 11/21/2024 17:04:27 11/22/19 25 11/21/2024 CBC W/AUT O DIFFE RENTI AL platelet count 187 10e3/ uL 150-40 0 normal Not Available [address] , [place], [address], 11/21/2024 17:04:27 11/22/19 25 11/21/2024 CBC W/AUT O DIFFE RENTI AL immature granulocyte % 1 0-1 normal Not Available [address] , [place], [address], 11/21/2024 17:04:27 11/22/19 25 11/21/2024 CBC W/AUT O DIFFE RENTI AL neutrophil % 63 % 35-75 normal Not Available [address] , [place], [address], 11/21/2024 17:04:27 11/22/19 25 11/21/2024 CBC W/AUT O DIFFE RENTI AL lymphocyte % 23 % 10-50 normal Not Available [address] [place], [place], [address], 11/21/2024 17:04:27 11/22/19 25 11/21/2024 CBC W/AUT O DIFFE RENTI AL monocyte % 7 % 0-15 normal Not Available [address] [place], [place], [address], 11/21/2024 17:04:27 11/22/19 25 11/21/2024 CBC W/AUT O DIFFE RENTI AL eosinophil % 5 % 0-5 normal Not Available [address] [place], [place], [address], 11/21/2024 17:04:27 11/22/19 25 11/21/2024 CBC W/AUT O DIFFE RENTI AL basophil % 1 % 0-5 normal Not Available [address] [place], [place], [address], 11/21/2024 17:04:27 11/22/19 25 11/21/2024 CBC W/AUT O DIFFE RENTI AL immature granulocyte # 0.04 x1000 /uL 0-0.05 normal Not Available [address] [place], [place], [address], 11/21/2024 17:04:27 11/22/19 25 11/21/2024 CBC W/AUT O DIFFE RENTI AL neutrophil # 3.77 x1000 /uL 1.50-8 .00 normal Not Available [address] [place], [place], [address], 11/21/2024 17:04:27 11/22/19 25 11/21/2024 CBC W/AUT O DIFFE RENTI AL lymphocyte # 1.41 x1000 /uL 1.20-5 .20 normal Not Available [address] [place], [place], [address], 11/21/2024 17:04:27 11/22/19 25 11/21/2024 CBC W/AUT O DIFFE RENTI AL monocyte # 0.44 x1000 /uL 0.40-0 .90 normal Not Available [place] [address], [place], [address], 11/21/2024 17:04:27 11/22/19 25 11/21/2024 CBC W/AUT O DIFFE RENTI AL eosinophil # 0.29 x1000 /uL 0.00-0 .50 normal Not Available [address] [place], [place], [address], 11/21/2024 17:04:27 11/22/19 25 11/21/2024 CBC W/AUT O DIFFE RENTI AL basophil # 0.07 x1000 /uL 0.00-0 .30 normal Not Available [address] [place], [place], [address], 11/21/2024 17:04:27 11/22/19 25 11/21/2024 CBC W/AUT O DIFFE RENTI AL NRBC automated 0.0 /100_ WBC Not Available [address] [place], [place], [address], 11/21/2024 17:04:27 11/22/19 25 11/21/2024 CBC W/AUT O DIFFE RENTI AL performing lab SEE NOTE ML - [facility] [address] [facility] [id number] Not Available [address] [place], [place], [address], 11/21/2024 17:04:27 11/22/19 25 11/21/2024 FE W/TOT AL IRON MACARIO NG CAP note SEE NOTE Order ing Provi yemi: Ria lee APRN Not Available [address] [place], [place], [address], 11/21/2024 17:31:31 11/22/19 25 11/21/2024 FE W/TOT AL IRON MACARIO NG CAP iron 80 ug/dL 50-170 normal Not Available [address] [place], [place], [address], 11/21/2024 17:31:31 11/22/19 25 11/21/2024 FE W/TOT AL IRON [facility]AR[facility] NG CAP total iron binding capacity 275 ug/dL 260-44 5 normal Not Available [address] [place], [place], [address], 11/21/2024 17:31:31 11/22/19 25 11/21/2024 FE W/TOT AL IRON MACARIO NG CAP iron saturation 29 % 20-50 normal Not Available [address] [place], [place], [address], 11/21/2024 17:31:31 11/22/19 25 11/21/2024 FE W/TOT AL IRON MACARIO NG CAP performing lab SEE NOTE ML - [facility] [address] [facility] [place] [address] Not Available [address] , [place], [address], 11/21/2024 17:31:31 11/22/19 25 11/21/2024 CHARIS TIN note SEE NOTE Order ing Provi yemi: Ria dominguez Pickr ell THERMAL MOLDER Not Available [address] , [place], [address], 11/21/2024 17:46:30 11/22/19 25 11/21/2024 CHARIS TIN ferritin 408 NG/mL 8-252 high Not Available [address] , [place], [address], 11/21/2024 17:46:30 11/22/19 25 11/21/2024 CHARIS TIN performing lab SEE NOTE ML - [facility] [address] [facility] [place] [address] Not Available [address] , [place], [address], 11/21/2024 17:46:30 12/23/19 24 XR, lumba r spine No observ ation record ed. NATASHA Avila [address] , [place], [address], 12/23/2023 08:15:01 12/23/19 24 XR, pelvi s No observ ation record ed. NATASHA Avila [address] , [place], [address], 12/23/2023 08:15:27 Result Notes None recorded. Problems Name Problem SNOMED Code Status Onset Date Resolution Date Notes Provider Name and Address Organization Details Recorded Time Cyst of right ovary 9098444383361 9108 Active 2018 Milton Rangel null, [place] - [facility] - [place] 3 12:19:18 Chronic obstructive pulmonary disease 66745030 Active 2019 Milton R[place] [facility] [place] 3 12:19:18 Leiomyoma 7145210553218 03 Active 2018 Milton R[place] [facility] [place] 3 12:19:18 Constipatio n 46833055 Active 2018 Milton R[place] [facility] [place] 3 12:19:18 Indigestion 833536076 Active 2016 Milton R[place] [facility] [place] 3 12:19:18 Vulval pain 409861496 Active 2021 Milton R[place] [facility] [place] 3 12:19:18 Folic acid deficiency 158160265 Active 2021 Milton R[place] [facility] [place] 3 12:19:18 Asthma 129246023 Active 2019 Milton R[place] [facility] [place] 3 12:19:18 Fibromyalgi a 586230123 Active 2016 Milton R[place] [facility] [place] 3 12:19:18 Syncope 841969590 Active 2016 Milton R[place] [facility] [place] 3 12:19:18 Low back pain 190508047 Active 2021 Milton R[place] [facility] [place] 3 12:19:18 Orthostatic hypotension 79351281 Active 2016 Milton R[place] [facility] [place] 3 12:19:18 Pain in pelvis 50355962 Active 2018 Milton hudson [place] - [facility] - [place] 3 12:19:18 Iron deficiency 24319172 Active 2018 Milton [place]udson [place] [facility] [place] 3 12:19:18 Migraine 33834081 Active 2017 Milton [place]udson [place] [facility] [place] 3 12:19:18 Hypertensiv e disorder 58889063 Active 2016 Milton [place]udson [place] - [facility] [place] 3 12:19:18 Hypokalemia 53900619 Active 2021 JAKY Magana - [facility] - [place] 3 12:19:18 Hyperlipide hector 94354401 Active 2016 Milton hudson [place] - [facility] [place] 3 12:19:18 Wheezing 90466542 Active 2019 Milton [place]udson [place] - [facility] [place] 3 12:19:18 Occult blood detected in feces 16340421 Active 2021 Milton [place]udson [place] - [facility] [place] 3 12:19:18 Cyst of vulva 18782628 Active 2021 Milton [place]udson [place] [facility] [place] 3 12:19:18 History of bariatric surgical procedure 515892224 Active 2018 Milton [place]udson [place] - [facility] [place] 3 12:19:18 Nocturnal cough 80584722 Active 2019 [place] [facility] [place] 3 12:19:18 Dyspareunia 68407811 Active 2018 [place] [facility] [place] 3 12:19:18 Smoker 08371854 Active 2018 Milton [place]udson [place] [facility] [place] 3 12:19:18 COVID-19 142749933 Active 2020 [place] R[place] [facility] [place] 3 12:19:18 Suspected COVID-19 428682141 Active 2019 Milton Mckeongieri [place] [facility] [place] 3 12:19:18 Uterine leiomyoma 23818467 Active 2018 Milton Mckeongieri [place] [facility] [place] 3 12:19:18 Iron deficiency anemia 28810629 Active 2022 Mitlon [place]angel [place] [facility] [place] [facility] [place] 3 12:19:18 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 Milton R[place] [facility] [place] 3 12:19:18 Esophageal dysmotility 145907375 Active 2022 Charles Jorge MD [address] [place] [address],[address], [place], [address], [place] - [facility] - [facility] & [place] 3 14:35:53 Iron deficiency without anemia 039295148 Active 2022 MARGARITA WAITE NP [address] [place] [address],[address], [place], [address], [place] [facility] & [place] 3 10:17:40 Pain of joint 35354261 Active 2023 MARGARITA WAITE NP [address] [place] [address],[address], [place], [address], [place] [facility] & [place] 4 18:18:09 Fatigue 05498722 Active 2023 MARGARITA WAITE NP [address] [place] [address],[address], [place], [address], [place] [facility] [place] 5 12:52:35 Abdominal pain 77452755 Active 2023 MAHNAZ ESCOBAR MD [address] [facility],[place] [address], [place], [address], JAK[place] - [facility] - [facility] & [place] 14:07:29 Problem Notes None recorded. Procedures Surgical History Date Name Laterality Status Provider Name and Address Organization Details Recorded Time 06/22/20 24 Venipuncture completed Radha STARKEY - [facility] - [place] [facility] [place] 06/22/2024 10:11:17 08/08/19 24 Date of Last Pap Smear completed Marie Lal [place] - [facility] - [facility] & [place] 09/30/2023 09:33:55 08/08/19 24 Cardiac Exercise Physiologist Surgery completed Marie Lal [place] - [facility] - [facility] & [place] 09/30/2023 09:35:11 06/08/20 23 Date of Last Colonoscopy completed Marie STARKEY - [facility] [place] 09/30/2023 09:33:55 05/17/20 23 EGD/Endoscopy completed Milton STARKEY - [facility] - [facility] & [place] 05/31/2023 13:57:35 05/08/20 23 completed Marie STARKEY - [facility] - [facility] [place] 09/30/2023 09:33:55 08/08/19 22 Cardiac Exercise Physiologist Surgery completed Milton STARKEY - [facility] - [facility] & [place] 05/30/2023 12:43:54 08/08/19 20 maintenance of gastric band completed Milton STARKEY - [facility] - [place] [facility] [place] 04/25/2023 15:33:56 08/08/19 17 laparoscopic adjustable gastric banding completed Milton STARKEY - [facility] - [facility] & [place] 04/25/2023 15:33:36 08/08/19 07 Other completed Milton STARKEY - [facility] - [facility] & [place] 05/31/2023 13:58:12 08/08/19 05 section completed Milton STARKEY - [facility] - [facility] & [place] 04/25/2023 15:33:12 08/08/19 05 Abdominal Surgery completed Milton STARKEY - [facility] - [facility] & [place] 05/30/2023 12:43:54 08/08/19 02 Dilation and Curettage completed Milton Interianoeri JAKY Nicholson [facility] & [place] 04/25/2023 15:33:23 01/06/19 69 Most Recent Bone Density completed Marie Nicholson [facility] & [place] 09/30/2023 09:33:55 resection of polyp completed Milton Mckeongieri JAKY Lyn FRANCISCO [facility] & [place] 04/25/2023 15:34:32 extraction of wisdom tooth completed Milton Mckeongieri JAKY Lyn FRANCISCO [facility] & [place] 04/25/2023 15:35:11 Imaging Results Imaging Date Name Status LastModified by Eliza holliday Details LastModified Time 12/23/2023 XR, lumbar spine completed NATASHA [address] [place], [address], 12/23/2023 08:15:01 12/23/2023 XR, pelvis completed NATASHA [address] [place], [address], 12/23/2023 08:15:27 Procedure Notes None recorded. Medical Equipment None Reported. Allergies Allergen ID Allergen Name Allergen Category Reaction Reaction Severity Criticality Documentation Date Start Date Code Code System Note Provider Name and Address Organization Details Recorded Time 81941 Claritin- D medicatio n Not available Not available Not available 04/07/20232007 30981 6 RxNorm Marie Lal becca JAKY FRANCISCO [facility] & [place] 14:52:00 21587 chlorphen iramine medicatio n dyspnea moderate Not available 05/31/20232021 2400 RxNorm Milton Mckeonhernan hudson JAKY Lyn FRANCISCO [facility] & [place] 3 12:19:34 71227 phenylpro panolamin e medicatio n dyspnea moderate Not available 05/31/20232021 8175 RxNorm Milton Mckeonhernan hudson JAKY Lyn NOLAN [facility] & [place] 3 12:19:34 Medications Name Sig Start Date [...] Available Not Available Not Available Lamar Canales [facility] spacer 05/11 completed Not Available Not Available [...] completed Not Available Not Available Not Available Nurte ODT 75 mg disintegrat ing tablet TAKE [...] Updated DateTime 4 162.56 cm 33.3 kg/m2 21637.6 4 g 97.8 [degF] 97 % 97 % 69 /min 16 /min 146 mm[Hg] 80 mm[Hg] Marie STARKEY - NOLAN [facility] & [place] 4 09:51:20 Date Recorded Body height Body mass index (BMI) Body weight Body temperature Oxygen saturation Oxygen saturation in Arterial blood by Pulse oximetry Heart rate Systolic blood pressure Diastolic blood pressure Provider Name and Address Organization Details Last Updated DateTime 4 162.56 cm 33.5 kg/m2 00994.2 3 g 98.2 [degF] 100 % 100 % 78 /min 141 mm[Hg] 78 mm[Hg] Geno FRANCISCO [facility] & [place] 4 13:49:26 Date Recorded Body height Body mass index (BMI) Body weight Body temperature Oxygen saturation Oxygen saturation in Arterial blood by Pulse oximetry Heart rate Respiratory rate Systolic blood pressure Diastolic blood pressure Provider Name and Address Organization Details Last Updated DateTime 4 162.56 cm 33.1 kg/m2 65800.6 1 g 98.1 [degF] 99 % 99 % 71 /min 16 /min 131 mm[Hg] 63 mm[Hg] Marie FRANCISCO [facility] & [place] 4 10:46:17 Date Recorded Body height Provider Name an d Address Organization Details Last Updated DateTime 06/22/2024 162.56 cm Radha STARKEY - NOLAN [facility] & [place] 06/22/2024 10:02:24 Date Recorded Body height Body mass index (BMI) Body weight Body temperature Oxygen saturation Oxygen saturation in Arterial blood by Pulse oximetry Heart rate Respiratory rate Systolic blood pressure Diastolic blood pressure Provider Name and Address Organization Details Last Updated DateTime 5 162.56 cm 37.5 kg/m2 72170.5 7 g 98.6 [degF] 99 % 99 % 101 /min 16 /min 140 mm[Hg] 90 mm[Hg] Marie Rosetta [facility] & [place] 5 15:05:04 Social History Question Answer Notes LastModified by [employer] ion Details LastModified Time Tobacco Smoking Status Former Smoker Milton Rangel [facility] & [place] 04/25/2023 15:31:36 Do You Have An Advance [...] available 05/30/2023 When Did You Quit Smoking? 6-10yearssincela glenn Information not available 05/30/2023 What Was The Date Of Your Most Recent Tobacco Screening? 04/20/2024 [email or web address] Information not available 04/20/2024 Are You Passively Exposed To Smoke? Yes Information not available 05/30/2023 Do You Or Have You Ever Used Smokeless Tobacco? Never Used Smokeless Tobacco Information not available 05/30/2023 How Much Tobacco Do You Smoke? 0.5 PPD Information not available 05/30/2023 Do You Feel Stressed (tense, Restless, Nervous, Or Anxious, Or Unable To Sleep At Night)? [id number] Information not available 05/30/2023 Do You Use Any Illicit Or Recreational Drugs? Yes Information not available 04/25/2023 How Many Years Have You Smoked Tobacco? 20 [email or web address] Information not available 12/30/2023 Have You Used IV Drugs? No Information not available 05/31/2023 Sex: Unknown Functional Status Question Answer Note LastModified by Organization D etails LastModified Time What is your exercise level? None [email or web address] Information not available 12/30/2023 Mental Status None [...] virus, quadrivalent, preservative 0 completed Not Available [facility] 05/18/2023 01:43:07 Influenza, split virus, quadrivalent, preservative 9 completed Not Available [facility] 05/18/2023 01:43:07 Influenza, split virus, quadrivalent, preservative 8 completed Not Available [facility] 05/18/2023 01:43:07 Influenza, split virus, quadrivalent, preservative 1 completed Not Available [facility] 05/18/2023 01:43:08 Influenza, split virus, quadrivalent, preservative 7 completed Not Available [facility] 05/18/2023 01:43:08 COVID-19 vaccine, vector-nr, rS-Ad26, PF, 0.5 mL 1 completed Not Available [facility] 05/18/2023 01:43:08 influenza, unspecified formulation 3 completed Not Available [facility] 05/18/2023 01:43:08 influenza, unspecified formulation 5 completed Not Available [facility] 05/18/2023 01:43:08 influenza, unspecified formulation 4 completed Not Available [facility] 05/18/2023 01:43:08 influenza, unspecified formulation 2 completed Not Available [facility] 05/18/2023 01:43:08 Tdap 1 completed Not Available [facility] 05/18/2023 01:43:08 Tdap 9 completed Not Available [facility] 05/18/2023 01:43:08 Influenza, split virus, trivalent, PF 2 completed Not Available [facility] 05/18/2023 01:43:08 Hep A, adult 9 completed Not Available [facility] 05/18/2023 01:43:08 Hep A, adult 9 completed Not Available [facility] 05/18/2023 01:43:08 influenza, unspecified formulation 2 completed Not Available [facility] 05/18/2023 01:43:08 influenza, unspecified formulation 3 completed JAKY Magana - [place] - [place] & [place] 05/31/2023 12:23:17 Past Encounters Encounter ID Performer Location Encounter Start Date Encounter Closed Date Diagnosis/Indication Diagnosis SNOMED-CT Code Diagnosis ICD10 Code Diagnosis Note [id number] MD VASILE Amaya [facility] [address] [place] [address] 04/07/2023 14:30:41 04/07/2023 15:16:49 Iron deficiency without anemia 455866653 E61.1 Patient has history of iron-defic iency [...] iron studies. History of bariatric surgical procedure 329656187 Z98.84 Patient has history of bariatric surgical procedure. I will be checking zinc, copper and vitamin B12 level. Patient with bariatric surgery are at risk for zinc, copper And vitamin B12 deficiency . Folic acid deficiency 19 7658977 E53.8 patient noted to have folic acid deficiency . She will be started on folic acid supplement ation. Painful re ctal bleeding 647206383 K62.5 send to GI for colonoscop y [id number] MD VASILE Myers [facility] [address] [place] [address],[address] [place] [address] 04/25/2023 14:36:26 04/25/2023 16:33:56 Iron deficiency anemia 04904263 D50.9 Chronic iron deficiency anemia refractory to oral replacemen t, plan EGD, and colonoscop y for diagnostic purposes. The patient's request for Sutab, discussed with patient that if she needs to she can slow down her during with each set of pills but needs to drink plenty of fluids or she will not clear Hypokalemia 26776353 E87 .6 seen in ER for hypokalemi a, was given IV potassium, and started on potassium supplement ation. The patient continues however on hydrochlor othiazide, would recommend the patient discuss with her primary provider an alternativ e to hydrochlor othiazide that might ought exacerbate her hypokalemi a. [id number] Charles Jorge MD [facility] erology [address] [place] [id number] 05/31/2023 13:48:12 05/31/2023 14:46:24 Iron deficiency anemia 86924451 D50.9 the patient recently underwent an EGD [...] management of the patient's hematology team Hypokalemia 13761831 E87 .6 Esophageal dysmotility 112814885 K22.4 The patient has had a prior lap band with revision. I believe the patient needs an esophageal manometry, but we will need the patient's lap band fully decompress ed before that we will therefore have the patient f/u with Bariatric surgery for lap band decompress ion, then refer for esophageal manometry [id number] ANTOINE [facility] [address] [place] [phone] 05/31/2023 13:11:34 05/31/2023 13:48:28 Iron deficiency without anemia 049052341 E61.1 Patient presents May 31, 2023 for [...] informatio n in the electronic health record. [id number] [facility] [address] [place] [address] [place] [address] 07/12/2023 13:00:32 07/12/2023 13:41:01 Iron deficiency without anemia 028220399 E61.1 Patient presents July 12, 2023 for [...] informatio n in the electronic health record. [id number] MD VASILE Amaya [facility] [address] [place] [address] [place] [address] 09/30/2023 09:22:21 09/30/2023 09:59:40 Iron deficiency without anemia 267712958 E61.1 Patient presents September 30, 2023 for [...] informatio n in the electronic health record. [id number] DO VASILE GUERRERO [facility] [address] [place] [phone] 12/23/2023 07:54:24 12/23/2023 08:28:16 Low back pain 412616602 M54.50 Pain of hip region 68658 002 M25.559 Trochanter ic bursitis of left hip 9422616761 55714 M70.62 [id number] [facility] [address] [place] [address] JAKY Rico [address] 12/30/2023 09:37:04 12/30/2023 10:24:04 Iron deficiency without anemia 232347319 E61.1 Patient presents December 30, 2023 for [...] informatio n in the electronic health record. Pain of joint 06305549 M 25.50 Patient noted to have persistent joint pain. Will assess for inflammato ry markers. Fatigue 90886566 R53.83 Patient with persistent fatigue. Recommend evaluate for vitamin B12 deficiency . [id number] MAHNAZ ESCOBAR MD Sudheer lam [facility] [address] [place] [address] [place] [address] 03/27/2024 13:41:08 03/27/2024 14:11:37 Iron deficiency anemia 04948388 D50.9 43-year-ol d female history of iron-defic iency anemia requiring intermitte nt iron infusions, now status post hysterecto my September 2023 with last iron infusion received shortly before. Patient has a history of SLE for which she is on Plaquenil and followed by [facility]. She indicates that she is experienci ng subjective flare at this time with increased fatigue and joint pains and has follow-up with Flaco garcia in the next 2 weeks. Labs from [...] deficient in . B12 and folate from sd within normal limits. Otherwise white blood cell differenti al within normal limits and appropriat e platelet count. -CBC, iron labs, soluble transferri n receptor- return to clinic in 2 weeks to follow up on labs Abdominal pain 73997846 R10.9 [id number] MARGARITA WAITE, ANTOINE MV [facility] [address] [place] [address] JAKY Rico [address] 04/20/2024 10:25:17 04/20/2024 11:13:36 Iron deficiency anemia 06786914 D50.9 43-year-ol d female history of iron-defic iency anemia requiring intermitte nt iron infusions, now status post hysterecto my September 2023 with last iron infusion received shortly before. Patient has a history of SLE for which she is on Plaquenil and followed by [facility]. She indicates that she is experienci [...] in the electronic health record. Abdominal pain 77814014 R10.9 Appears to have resolved. [id number] [facility] [address] [place] [address] Dr QUIROZJAKY TIAN [id number] 06/22/2024 09:31:00 06/22/2024 10:03:44 Iron deficiency anemia 99044110 D50.9 43-year-ol d female history of iron-defic [...] informatio n in the electronic health record. [id number] [facility] [address] [place] [address] [place] [address] 11/21/2024 14:50:08 11/21/2024 15:38:21 Iron deficiency anemia 92855420 D50.9 43-year-ol d female history of iron-defic iency anemia requiring intermitte nt iron infusions, now status post hysterecto my September 2023 with last iron infusion received shortly before. Patient has a history of SLE for which she is on Plaquenil and followed by [facility] g[facility]. She indicates that she is experienci ng subjective flare at this time with increased fatigue and joint pains and has follow-up with Rheumatandrei garcia in the next 2 weeks. Labs from [...] deficient in . B12 and folate from sd within normal limits. Otherwise white blood cell [...] ordering and reviewing today's labs, and documentin herminia ibrahim in the electronic health record. Fatigue 00336485 R53.83 Patient with persistent fatigue. Recommend evaluate for other vitamin deficienci es. Health Concerns Section Related Observation LastModified by Organization Detai ls LastModified Time None Recorded Concern Status LastModified by Organization Details LastModified Time None Recorded Advance Directives Directive N: Payers Encounter Date Sequence Insurance Name Policy Number Policy Mead Covered Member ID Mead Member ID Guarantor Name 12/30/2023 1 [place] [id number] [facility] [id number] 25 Luz Gomez 03/27/2024 1 [place] [id number] [facility] [id number] 25 Luz Gomez 04/20/2024 1 [place] [id number] [facility] [id number] 25 Luz Gomez 06/22/2024 1 [place] [id number] [facility] [id number] 25 Luz Gomez 11/21/2024 1 [employer]MR [id number] [facility] [id number] [facility] Notes Date Note Type Note Provider Name and Address Organization Details Recorded Time 12/30/2023 text/html 43-year-old martina worrell who came [...] colonoscopy for 10 years. MARGARITA WAITE NP [address] [place] [address],[address], [place], [address], [facility] - [place] - [place] [facility] [place] 01/02/2024 18:18:32 03/27/2024 text/html 43-year-old martina worrell [...] denies epistaxis, hemoptysis, hematemesis, melena, hematochezia, hematuria. MANHAZ ESCOBAR MD [address] [place] [address] Drive,[address], [place], [address], [place] - [facility] - [place] & [place] 03/27/2024 14:18:20 04/20/2024 text/html 43-year-old martina worrell [...] for 10 years. MARGARITA WAITE, ANTOINE [address] [facility],[address], [place], [address], [place] [facility] - [place] 04/25/2024 16:38:22 11/21/2024 text/html 43-year-old martina worrell returns to [...] denies epistaxis, hemoptysis, hematemesis, melena, hematochezia, hematuria. __ Patient presents November 21, 2024 for follow-up [...] and drinking well. MARGARITA WAITE, ANTOINE [address] [facility],[address], [place], [address], [facility] & [place] 12/06/2024 12:53:04 OBGyn Episode No OBEpisode recorded.
--- OUTSIDE RECORDS SUMMARY | 2024-12-10 10:36 | XMS_ITS | Data Portability ---
Author Organization [place] - [facility], Main Office Address [address] [address] Care Team Providers Care Sports Cartoonist Name Role Phone BRIDGET ROUSE Primary Care Provider [phone] Assessment Encounter Date Assessment Date Assessment LastModified [...] this visit and understand the limitations of [facility] medicine. Medication instructions, precautions, and side effects [...] panel, serum 2022 023 cmckinstr [email or web address] [facility] ([facility], [address] [facility], [place], [address], 18:16:13 potassium, serum or plasma 2022 023 [place] [email or web address] [facility] ([place]), [address] [facility], [place], [address], 3 18:16:13 Hepatitis C IgG Ab, qual, serum 2022 023 [place] [facility] ([place]), [address] [facility], [place], [address], 3 17:05:30 HIV 1 + 2, meaningful use set 2022 023 [place] [facility] ([place]), [address] [facility], [place], [address], 3 17:05:29 unlisted lab - biometrics- [id number] 2022 023 [place] [facility] ([place]), [address] [facility], [place], [address], 3 17:05:26 CMP, serum or plasma 2022 023 [place] [facility] ([place]), [address] [facility], [place], [address], 3 17:05:25 CBC w/ auto diff 2022 023 [facility] [address] [facility], [place], [address], 3 17:05:24 TSH, ultra-sensi tive, serum 2022 023 [place] [facility] ([place]), [address] [facility], [place], [address], 3 17:05:28 HbA1c (hemoglobin A1c), blood 2022 023 [place] [facility] ([place]), [address] [facility], [place], [address], 3 17:05:27 lipid panel, serum 2022 023 [facility]), [address] [place], [address], 3 17:05:25 vitamin B12 + folate, serum or blood 2022 023 [facility]), [address] [place], [address], 3 17:05:26 thiamine, QN, blood 2022 023 [facility]), [address] [place], [address], 3 17:05:30 iron, serum 2022 023 [facility]), [address] [place], [address], 3 17:05:30 vitamin E, serum 2022 023 [facility]), [address] [place], [address], 3 17:05:27 copper, serum or plasma 2022 023 [facility]), [address] [place], [address], 3 17:05:31 zinc, serum or plasma 2022 023 [facility]), [address] [place], [address], 3 17:05:31 vitamin A (retinol), serum 2022 023 [facility]), [address] [place], [address], 3 17:05:28 vitamin D, 25-hydroxy, total, serum 2022 023 [facility]), [address] [facility], [place], [address], 3 17:05:29 Referral care management referral [address] Referral Coordinators, 10 [facility] [address], [facility] [place], [address], 3 18:11:03 Procedures None recorded. Surgeries None recorded. Imaging None recorded. Medication Orders cholecalcif jason (vitamin D3) 50 mcg (2,000 unit) tablet [address] [facility], [address] [place] [address], [place], [address], 3 09:32:20 omeprazole 40 mg capsule,del ayed release 2022 023 [facility], [address] [place] [address], [address], 3 15:01:42 montelukast 10 mg tablet [address] [facility], [address] [place] [address], [address], 3 16:33:11 valacyclovi r 1 gram tablet 2022 023 [facility], [address] [place] [address], [address], 3 14:31:17 hydrochloro thiazide 12.5 mg capsule 2022 023 [facility], [address] [place] [address], [address], 3 15:01:46 Patient TargetsNo targets recorded. Patient InstructionsNo instructions recorded. Reason for Referral Referring Physician: Emily Cody, Family Medicine, Encounter Date: 11/10/2022 Results Created Date Observation Date Name Description Value Unit Range Abnormal Flag Note LastModifiedBy Organization Detail LastModifiedTime 11/30/19 23 11/29/2022 CBC WITH DIFFE RENTI AL/PL ATELE T WBC 5.0 x10e3 /uL 3.4-10 .8 Not Available [facility] ([facility]) [address] [facility], [place], [address], 12/04/2022 17:05:24 11/30/19 23 11/29/2022 CBC WITH DIFFE RENTI AL/PL ATELE T RBC 5.07 x10e6 /uL 3.77-5 .28 Not Available [facility] ([facility]) [address] [place], [address], 12/04/2022 17:05:24 11/30/19 23 11/29/2022 CBC WITH DIFFE RENTI AL/PL ATELE T hemoglobin 12.8 g/dL 11.1-1 5.9 Not Available [facility] ([facility]) [address] [place], [address], 12/04/2022 17:05:24 11/30/19 23 11/29/2022 CBC WITH DIFFE RENTI AL/PL ATELE T hematocrit 39.8 % 34.0-4 6.6 Not Available [facility] ([facility]) [address] [place], [address], 12/04/2022 17:05:24 11/30/19 23 11/29/2022 CBC WITH DIFFE RENTI AL/PL ATELE T MCV 79 fL 79-97 Not Available [facility] ([facility]) [address] [place], [address], 12/04/2022 17:05:24 11/30/19 23 11/29/2022 CBC WITH DIFFE RENTI AL/PL ATELE T MCH 25.2 pg 26.6-3 3.0 below low normal Not Available [facility] ([facility]) [address] [place], [address], 12/04/2022 17:05:24 11/30/19 23 11/29/2022 CBC WITH DIFFE RENTI AL/PL ATELE T MCHC 32.2 g/dL 31.5-3 5.7 Not Available [facility] ([facility]) [address] [facility], [place], [address], 12/04/2022 17:05:24 11/30/19 23 11/29/2022 CBC WITH DIFFE RENTI AL/PL ATELE T RDW 13.6 % 11.7-1 5.4 Not Available [facility] ([facility]) [address] [facility], [place], [address], 12/04/2022 17:05:24 11/30/19 23 11/29/2022 CBC WITH DIFFE RENTI AL/PL ATELE T platelets 228 x10e3 /uL 150-45 0 Not Available [facility] ([facility]) [address] [facility], [place], [address], 12/04/2022 17:05:24 11/30/19 23 11/29/2022 CBC WITH DIFFE RENTI AL/PL ATELE T neutrophils 65 % not estab. Not Available [facility] ([facility]) [address] [facility], [place], [address], 12/04/2022 17:05:24 11/30/19 23 11/29/2022 CBC WITH DIFFE RENTI AL/PL ATELE T lymphs 23 % not estab. Not Available [facility] ([facility]) [address] [facility], [place], [address], 12/04/2022 17:05:24 11/30/19 23 11/29/2022 CBC WITH DIFFE RENTI AL/PL ATELE T monocytes 8 % not estab. Not Available [facility] ([facility]) [address] [facility], [place], [address], 12/04/2022 17:05:24 11/30/19 23 11/29/2022 CBC WITH DIFFE RENTI AL/PL ATELE T eos 3 % not estab. Not Available [facility] ([facility]) [address] [facility], [place], [address], 12/04/2022 17:05:24 11/30/19 23 11/29/2022 CBC WITH DIFFE RENTI AL/PL ATELE T basos 1 % not estab. Not Available [facility] ([facility]) [address] [facility], [place], [address], 12/04/2022 17:05:24 11/30/19 23 11/29/2022 CBC WITH DIFFE RENTI AL/PL ATELE T immature cells SCOW CAPTAIN Not Available [facility] ([facility]) [address] [place], [address], 12/04/2022 17:05:24 11/30/19 23 11/29/2022 CBC WITH DIFFE RENTI AL/PL ATELE T neutrophils (absolute) 3.2 x10e3 /uL 1.4-7. 0 Not Available [facility] ([facility]) [address] [place], [address], 12/04/2022 17:05:24 11/30/19 23 11/29/2022 CBC WITH DIFFE RENTI AL/PL ATELE T lymphs (absolute) 1.2 x10e3 /uL 0.7-3. 1 Not Available [facility] ([facility]) [address] [place], [address], 12/04/2022 17:05:24 11/30/19 23 11/29/2022 CBC WITH DIFFE RENTI AL/PL ATELE T monocytes(ab solute) 0.4 x10e3 /uL 0.1-0. 9 Not Available [facility] ([facility]) [address] [place], [address], 12/04/2022 17:05:24 11/30/19 23 11/29/2022 CBC WITH DIFFE RENTI AL/PL ATELE T eos (absolute) 0.2 x10e3 /uL 0.0-0. 4 Not Available [facility] ([facility]) [address] [facility], [place], [address], 12/04/2022 17:05:24 11/30/19 23 11/29/2022 CBC WITH DIFFE RENTI AL/PL ATELE T baso (absolute) 0.1 x10e3 /uL 0.0-0. 2 Not Available [facility] ([facility]) [address] [facility], [place], [address], 12/04/2022 17:05:24 11/30/1911/29/2022 CBC WITH DIFFE RENTI AL/PL ATELE T immature granulocytes 0 % not estab. Not Available [facility] ([facility]) [address] [facility], [place], [address], 12/04/2022 17:05:24 11/30/1911/29/2022 CBC WITH DIFFE RENTI AL/PL ATELE T immature grans (abs) 0.0 x10e3 /uL 0.0-0. 1 Not Available [facility] ([facility]) [address] [facility], [place], [address], 12/04/2022 17:05:24 11/30/1911/29/2022 CBC WITH DIFFE RENTI AL/PL ATELE T NRBC SCOW CAPTAIN Not Available [facility] ([facility]) [address] [facility], [place], [address], 12/04/2022 17:05:24 11/30/1911/29/2022 CBC WITH DIFFE RENTI AL/PL ATELE T hematology comments: SCOW CAPTAIN Not Available [facility] ([facility]) [address] [facility], [place], [address], 12/04/2022 17:05:24 11/30/1911/29/2022 COMP. METAB OLIC PANEL (14) calcium 9.8 mg/dL 8.7-10 .2 Not Available [facility] ([facility]) [address] [place], [address], 12/04/2022 17:05:25 11/30/19 23 11/30/2022 COMP. METAB OLIC PANEL (14) glucose 82 mg/dL 70-99 Not Available [facility] ([facility]) [address] [place], [address], 12/04/2022 17:05:25 11/30/19 23 11/30/2022 COMP. METAB OLIC PANEL (14) BUN 9 mg/dL 6-24 Not Available [facility] ([facility]) [address] [place], [address], 12/04/2022 17:05:25 11/30/19 23 11/30/2022 COMP. METAB OLIC PANEL (14) creatinine 0.80 mg/dL 0.57-1 .00 Not Available [facility] ([facility]) [address] [place], [address], 12/04/2022 17:05:25 11/30/19 23 11/30/2022 COMP. METAB OLIC PANEL (14) eGFR 95 mL/mi n/1.7 3 >59 Not Available [facility] ([facility]) [address] [place], [address], 12/04/2022 17:05:25 11/30/19 23 11/30/2022 COMP. METAB OLIC PANEL (14) BUN/creatini ne ratio 11 9-23 Not Available [facility] ([facility]) [address] [place], [address], 12/04/2022 17:05:25 11/30/19 23 11/30/2022 COMP. METAB OLIC PANEL (14) sodium 137 mmol/ L 134-14 4 Not Available [facility] ([facility]) [address] [facility] [place], [address], 12/04/2022 17:05:25 11/30/19 23 11/30/2022 COMP. METAB OLIC PANEL (14) potassium 3.0 mmol/ L 3.5-5. 2 below low normal Not Available [facility] ([facility]) [address] [place], [address], 12/04/2022 17:05:25 11/30/19 23 11/30/2022 COMP. METAB OLIC PANEL (14) chloride 95 mmol/ L 96-106 below low normal Not Available [facility] ([facility]) [address] [place], [address], 12/04/2022 17:05:25 11/30/19 23 11/30/2022 COMP. METAB OLIC PANEL (14) carbon dioxide, total 28 mmol/ L 20- Not Available [facility] ([facility]) [address] [place], [address], 12/04/2022 17:05:25 11/30/19 23 11/30/2022 COMP. METAB OLIC PANEL (14) protein, total 7.3 g/dL 6.0-8. 5 Not Available [facility] ([facility]) [address] [place], [address], 12/04/2022 17:05:25 11/30/19 23 11/30/2022 COMP. METAB OLIC PANEL (14) albumin 4.3 g/dL 3.8-4. 8 Not Available [facility] ([facility]) [address] [place], [address], 12/04/2022 17:05:25 11/30/19 23 11/30/2022 COMP. METAB OLIC PANEL (14) globulin, total 3.0 g/dL 1.5-4. 5 Not Available [facility] ([facility]) [address] [place], [address], 12/04/2022 17:05:25 11/30/19 23 11/30/2022 COMP. METAB OLIC PANEL (14) A/G ratio 1.4 1.2-2. 2 Not Available [facility] ([facility]) [address] [facility] [place], [address], 12/04/2022 17:05:25 11/30/19 23 11/30/2022 COMP. METAB OLIC PANEL (14) bilirubin, total 0.4 mg/dL 0.0-1. 2 Not Available [facility] ([facility]) [address] [facility] [place], [address], 12/04/2022 17:05:25 11/30/19 23 11/30/2022 COMP. METAB OLIC PANEL (14) alkaline phosphatase 68 IU/L 44-121 Not Available [facility] ([facility]) [address] [place], [address], 12/04/2022 17:05:25 11/30/19 23 11/30/2022 COMP. METAB OLIC PANEL (14) AST (SGOT) 17 IU/L 0-40 Not Available [facility] ([facility]) [address] [place], [address], 12/04/2022 17:05:25 11/30/19 23 11/30/2022 COMP. METAB OLIC PANEL (14) ALT (SGPT) 11 IU/L 0-32 Not Available [facility] ([facility]) [address] [place], [address], 12/04/2022 17:05:25 11/30/19 23 11/30/2022 LIPID PANEL W/ CHOL/ HDL RATIO cholesterol, total 305 mg/dL 100-19 9 above high normal Not Available [facility] ([facility]) [address] [place], [address], 12/04/2022 17:05:25 11/30/19 23 11/30/2022 LIPID PANEL W/ CHOL/ HDL RATIO triglyceride s 167 mg/dL 0-149 above high normal Not Available [facility] ([facility]) [address] [place], [address], 12/04/2022 17:05:25 11/30/19 23 11/30/2022 LIPID PANEL W/ CHOL/ HDL RATIO HDL cholesterol 48 mg/dL >39 Not Available [facility] ([facility]) [address] [place], [address], 12/04/2022 17:05:25 11/30/19 23 11/30/2022 LIPID PANEL W/ CHOL/ HDL RATIO VLDL cholesterol tyrone 32 mg/dL 5-40 Not Available [facility] ([facility]) [address] [facility], [place], [address], 12/04/2022 17:05:25 11/30/19 23 11/30/2022 LIPID PANEL W/ CHOL/ HDL RATIO LDL chol calc ([facility]) 225 mg/dL 0-99 above high normal Not Available [facility] ([facility]) [address] [place], [address], 12/04/2022 17:05:25 11/30/19 23 11/30/2022 LIPID PANEL [...] ol 2011; 5:133 -140 Not Available [facility] ([facility]) [address] [facility], [place], [address], 12/04/2022 17:05:25 11/30/19 23 11/30/2022 LIPID PANEL W/ CHOL/ HDL RATIO T. chol/HDL ratio 6.4 ratio 0.0-4. 4 above high normal T. Chol/ HDL Ratio Men Women 1/2 Avg.R isk 3.4 3.3 Avg.R isk 5.0 4.4 2X Avg.R isk 9.6 7.1 3X Avg.R isk 23.4 11.0 Not Available [facility] ([facility]) [address] [place], [address], 12/04/2022 17:05:25 11/30/19 23 11/29/2022 BIOME TRICS patient height (in) 62.0 in Not Available [facility] ([facility]) [address] [place], [address], 12/04/2022 17:05:26 11/30/19 23 11/29/2022 BIOME TRICS patient weight (lbs) 193.8 lbs Not Available [facility] ([facility]) [address] [place], [address], 12/04/2022 17:05:26 11/30/19 23 11/29/2022 BIOME TRICS body mass index 35.4 Not Available [facility] ([facility]) [address] [place], [address], 12/04/2022 17:05:26 11/30/19 23 11/29/2022 BIOME TRICS waist circumferenc e (in) 40.0 in Not Available [facility] ([facility]) [address] [place], [address], 12/04/2022 17:05:26 11/30/19 23 11/29/2022 BIOME TRICS systolic blood pressure 123 mmHg Not Available [facility] ([facility]) [address] [place], [address], 12/04/2022 17:05:26 11/30/19 23 11/29/2022 BIOME TRICS diastolic blood pressure 78 mmHg Not Available [facility] ([facility]) [address] [facility], [place], [address], 12/04/2022 17:05:26 11/30/19 23 11/30/2022 VITAM IN B12 AND FOLAT E vitamin B12 618 pg/mL 232-12 45 Not Available [facility] ([facility]) [address] [facility], [place], [address], 12/04/2022 17:05:26 11/30/19 23 11/30/2022 VITAM IN B12 AND FOLAT E folate (folic acid), serum 5.5 NG/mL >3.0 A serum folat e felix ntrat ion of less than 3.1 ng/mL is consi dered to repre sent clini tyrone defic iency . Not Available [facility] ([facility]) [address] [facility], [place], [address], 12/04/2022 17:05:26 11/30/1912/04/2022 VITAM IN E vitamin E(alpha tocopherol) 13.9 mg/L 7.0-25 .1 Not Available [facility] ([facility]) [address] [facility], [place], [address], 12/04/2022 17:05:27 11/30/1912/04/2022 VITAM IN E vitamin [...] in E defic ient. Not Available [facility] ([facility]) [address] [facility], [place], [address], 12/04/2022 17:05:27 11/30/1911/30/2022 HEMOG LOBIN A1C hemoglobin A1C 5.2 % 4.8-5. 6 Predi abete s: 5.7 - 6.4 Diabe lurdes: >6.4 Glyce stephanie contr ol for adult s with diabe lurdes: <7.0 Not Available [facility] ([facility]) [address] [facility], [place], [address], 12/04/2022 17:05:27 11/30/1911/30/2022 TSH TSH 2.400 uIU/m L 0.450- 4.500 Not Available [facility] ([facility]) [address] [facility], [place], [address], 12/04/2022 17:05:28 11/30/1912/04/2022 VITAM IN A, SERUM [...] e hillary cteri stics deter mined by [employer]. It has not been clear ed or appro lane by the Food and Drug Admin istra tion. Not Available [facility] ([facility]) [address] [facility], [place], [address], 12/04/2022 17:05:28 11/30/1911/30/2022 VITAM IN D, 25-HY [...] um and D. Armando hernadez [place]: The [facility] . 2. Param melgar MF, Binkl ey [place], Bisch off-F errar i KUHN, et al. Evalu ation , treat ment, and preve ntion of vitam in D defic iency : an Endoc rine Socie ty clini tyrone pract ice guide line. JCEM. 2010; 96(7) :1911 -30. Not Available [facility] ([facility]) [address] [facility], [place], [address], 12/04/2022 17:05:29 11/30/19 23 11/30/2022 HIV AB/P2 4 AG WITH REFLE X HIV Ab/P24 Ag screen Non Reacti ve non reacti ve HIV Negat lona HIV-1 /HIV- 2 antib odies and HIV-1 p24 antig en were NOT detec venkat. There is no labor atory evide nce of HIV infec tion. Not Available [facility] ([facility]) [address] [facility], [place], [address], 12/04/2022 17:05:29 11/30/19 23 12/02/2022 VITAM IN B1 (THIA MINE) , BLOOD vit. B1, whole blood 106.2 nmol/ L 66.5-2 00.0 Not Available [facility] ([facility]) [address] [place], [address], 12/04/2022 17:05:29 11/30/19 23 11/30/2022 HCV ANTIB [...] e HCV infec tion. Not Available [facility] ([facility]) [address] [facility], [place], [address], 12/04/2022 17:05:30 11/30/19 23 11/30/2022 IRON iron 61 ug/dL 27-159 Not Available [facility] ([facility]) [address] [facility], [place], [address], 12/04/2022 17:05:30 11/30/19 23 12/01/2022 COPPE R, SERUM OR PLASM A copper, serum or plasma 139 ug/dL 80-158 Detec tion Limit = 5 Not Available [facility] ([facility]) [address] [facility], [place], [address], 12/04/2022 17:05:31 11/30/19 23 12/01/2022 ZINC, PLASM A OR SERUM zinc, plasma or serum 124 ug/dL 44-115 above high normal Detec tion Limit = 5 Not Available [facility] ([facility]) [address] [facility], [place], [address], 12/04/2022 17:05:31 06/04/2006/04/2024 histo rical labs cholesterol [...] Organization Details Recorded Time History of SARS-CoV-2 [id number] 84775 Active 2022 x 2. Last time was February 2022. Jay rodriguez MD [address], [place], [address], [place] [facility] 3 16:28:46 Migraine 99141322 Active 2022 Emily Cody MD [address], [place], [address], Formerly [facility] 3 18:37:31 Mixed anxiety and depressive disorder 731165102 Active 2022 Jay rodriguez MD [address], [place], [address], [facility] 3 09:27:00 Problem Notes None recorded. Procedures Surgical History Date Name Laterality Status Provider Name and Address Organization Details Recorded Time 3 Date of Last Pap Smear completed Elsa Moraleskinstry [place] [facility] 10/06/2022 13:51:48 2 completed Elsa Jamie [place] [facility] 10/06/2022 13:52:34 2 Date of Last Mammogram completed Elsa Jamie [place] [facility] 10/06/2022 13:52:43 8 Orthopedic Surgery completed Elsa Jamie [place] [facility] 10/06/2022 13:53:30 5 Caesarean Section completed Elsa Jamie [place] [facility] 10/06/2022 13:53:29 bariatric operative procedure completed Jay Sevilla MD [address], [place], [address], [facility] 12/03/2022 09:28:10 Imaging Results None recorded. Procedure [...] Updated DateTime 10/06/2022 162.56 cm 30.9 kg/m2 24856.63 g Elsa Ayala [place] - [facility] 10/06/2022 13:35:52 Date Recorded Body height Body mass index (BMI) Body weight Systolic blood pressure Diastolic blood pressure Provider Name and Address Organization Details Last Updated DateTime 12/03/2022 157.48 cm 35.4 kg/m2 84348.2 g 123 mm[Hg] 78 mm[Hg] Elsa Ayala [place] - [facility] 09:15:09 Date Recorded Body weight Body height Systolic blood pressure Diastolic blood pressure Provider Name and Address Organization Details Last Updated DateTime 06/04/2024 67056.48 g 160.02 cm 100 mm[Hg] 72 mm[Hg] Not Available [facility] - [employer] 06/14/2024 13:17:48 Social History Question Answer Notes LastModified by Organizat ion Details LastModified Time Tobacco Smoking Status Former Smoker Elsa Ayala null, [place] - [facility] 10/06/2022 13:53:23 What Is Your Level Of Alcohol Consumption? None Information not available 10/06/2022 What Is Your Level Of Caffeine Consumption? Moderate Information not available 10/06/2022 Do You Or Have You Ever Used E-cigarettes Or Vape? Never Used Electronic Cigarettes Information not available 10/06/2022 What Is The Highest Grade Or Level Of School You Have Completed Or The Highest Degree You Have Received? 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 10/06/2022 13:38:03 Past Encounters Encounter ID Performer Location Encounter Start Date Encounter Closed Date Diagnosis/Indication Diagnosis SNOMED-CT Code Diagnosis ICD10 Code Diagnosis Note [id number] Jay Sevilla MD [place] [facility] [place] [address] [place] [address] 10/06/2022 13:25:59 10/06/2022 17:21:35 Stomatitis 10021572 K12.1 Gastro-eso phageal reflux disease with esophagitis 921669023 K21.00 Needing PPI BID 4-5 days a week. EGD 2019 per pt. She will get name of GI physician. Will need f/u as sx persistent .She has a hx of lap-band surg in 2016 and a revision in 2020. Essential hypertension 08737512 I10 Will send home BP kit. Pt will get vitals for next visit. Chronic ob structive pulmonary disease 59470461 J44.9 Per pt PFT's done in 2019. Dx'd w/ COPD and asthma. Currently using alb prn. Sx most exacerbate d in the early spring and fall. Rec COVID 19 booster, influenza vaccine and Prevnar 20. History of bariatric surgical procedure 549697735 Z98.84 lap band surgery in 2016 and revision in 2020. Wt 268lb in 2017 prior to surgery. Current wt 180lb.Will get routine annual labs post bariatric surgery Adult heal th examination 518117829 Z00.00 Pt will get AP labs.Age appropriat e USPSTF preventati ve measures reviewed.R ec COVID 19 booster. [id number] Jay Sevilla MD [facility] - [place] [address] [place] [address] 12/03/2022 08:59:04 12/03/2022 10:36:08 Follow-up visit [id number] Z09 AP labs reviewed Hyperlipidemia 98993775 E78.5 hx of hyperlipid emia. Was on statin which was discontinu ed after bariatric surgery and wt loss. States these labs were done non fasting. Will repeat FLP fasting Hypokalemia 61255977 E87 .6 No sx. Will repeat. Vitamin D below reference range 049978346 E55.9 Migraine 96747311 G43.90 9 managed by PCP. on multiple meds. has started medical marijuana as well. [id number] Emily Cody MD [employer] - [place] [address] [facility] [address] [place] [address] 11/10/2022 18:37:04 11/10/2022 19:42:59 Migraine 88860027 G43.909 -chronic, managed by pcp,saw pcp today [...] 10/06/2022 1 [place] [id number] 3 [facility] [id number] [facility] 11/10/2022 1 [place] [id number] [address] [place] [address] [id number] [facility] 12/03/2022 1 [place] [id number] [address] [place] [address] [id number] [facility] Notes Date Note Type Note Provider Name and Address Organization Details Recorded Time 10/06/2022 text/html VIDEO CONSULTATI ON Patient name, and emergency contact verified.Patient Location - [facility] Location - [facility] - Paul Arana limitations discussed with patient. Patient verbally [...] surgery - Jay Sevilla MD [address], [place], [address], [place] [facility] 10/06/2022 16:36:14 11/10/2022 text/html The visit is con ducted via a video consultation.Telemedic ine limitations discussed with patient. Patient gave a verbal consent to consultation and treatment via telemedicine. written consent on file.Patient name, , address and emergency contact information verified.Location of the patient during the visit verified to be in [facility] location- [place] PCP Bridget Rouse APRN cc: referral to [...] next week Emily Cody MD [address], [place], [address], [place] - [facility] 11/10/2022 21:26:46 12/03/2022 text/html VIDEO CONSULTATI ON Patient name, and emergency contact verified.Patient Location -[facility] [place] - Bridget Rouse APRNTelemedicine limitations discussed with patient. Patient verbally consented to consultation and treatment with telehealth today. Pt presents for lab review. No other concerns at this time. Pt wanted to advise she started medicinal cannabis early November. CORTEZ,RN Jay Sevilla MD [address], [facility] [place], [address], [place] - [facility] 12/03/2022 09:56:11 OBGyn Episode No OBEpisode recorded.
[2024-12-10 10:49] VITALS: BP 147/98; BP 154/95; PULSE 74; RESP 16; O2SAT 100; BMI 34.9
--- NOTE | 2024-12-10 11:00 | P.PCN_ITS ---
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 Today she rates her pain a 5 out of 10. She does state that the last couple of days have just been worse overall and denies any falls or injuries. Patient is currently managed with morphine 1 mg/mL with a daily dose of 0.1264 mg/day. She denies any side effects. Patient is requesting an increase if possible. Her Gabriel has been reviewed and is appropriate. Physical Exam: General: Alert and oriented x3, no acute distress, pleasant and cooperative Lungs: Respirations even and unlabored, symmetrical chest expansion Eyes: PERRL Musculoskeletal: Flexion and extension of lumbar [spine] somewhat guarded secondary to pain, [antalgic gait noted] Neurological: Speech clear, no gross sensory deficit Procedure Details:: Informed consent was obtained and the risk and benefits of the procedure were explained to the patient. Patient did have noninvasive monitoring was placed including noninvasive blood pressure cuff and pulse oximeter. Patient's pump was interrogated and was reprogrammed to morphine 0.1515 mg/day. The patient tolerated the procedure well with no complications. Plan and Disposition:: Patient tolerated the procedure well with no complications and was discharged neurologically intact. I did discuss with the patient that I will give her a tentative 2-week follow-up for additional adjustment however she can cancel this appointment if she does not need it. Patient agrees with this plan of care. Patient will return to clinic on or before their next intrathecal refill date. We will see the patient back in the clinic at the next intrathecal refill. Patient has been instructed to contact the clinic with any concerns before the next appointment. Dr. Robertson has reviewed this note and agrees with this plan of care. This note was dictated using voice recognition software and make contain errors or omissions. -- It Is medically necessary for this patient to continue to have their intrathecal pump refilled at regular intervals. This patient had an intrathecal pain pump implanted after meeting criteria of chronic intractable pain for greater than 3 months and failing conservative treatments. Patient has committed and been compliant to the treatment plan and all planned follow up care. Since implant ation of the intrathecal pain pump, the patient has had decreased pain and been more functional. Oral medications have been reduced including intake of oral opioids. Patient continues to do well with intrathecal therapy with decrease in pain symptoms and increase in functional status. Stopping intrathecal medications can lead to life threatening withdrawal, seizures, cardiac arrest, severe pain, and possible . Pumps that are not refilled at regular intervals can be damages and cause and need for replacement. We continually titrate dose and concentration to optimize pain relief and function. We are limited in concentration for certain drugs to safely deliver medications through the pump and stay within the recommendations from the Polyanalgesic Consensus Committee Guidelines. Depending on dose and concentration these pumps may need to be refilled sooner than 3 months as we titrate. A UDS is needed to verify patient's compliance with our office pain contract. This is ordered based off specific treatments related to chronic pain with the potential to abuse certain medications.
== END 2024-12-10 23:59 | disposition home or self-care (01) ==
PROVIDERS: Visit Provider Nurse Practitioner Family
DX: G89.4 Chronic pain syndrome (principal); M51.369 Other intervertebral disc degeneration, lumbar region without mention of lumbar back pain or lower extremity pain; M46.1 Sacroiliitis, not elsewhere classified
CPT/HCPCS: 62368; 99212; 99213; G0463

== ENCOUNTER 2025-01-18 09:19 | Day surgery (SDC) | payer OTHER, SELFPAY ==
[2025-01-18 09:29] VITALS: BP 139/75; PULSE 83; RESP 16; O2SAT 99; BMI 40.2
--- NOTE | 2025-01-18 09:47 | EXP.PM.HP ---
History of Present Illness *Admission Date: 01/18/25 *Reason for visit:: Intrathecal refill; DDD *History of present illness: Same [facility] Disclaimer: The information contained in this section may have been updated after the patient was seen, as this information can be updated by other users. Medical History Lupus Encounter for adjustment of gastric lap band Depression Anxiety HLD (hyperlipidemia) Chronic urinary tract infection Iron deficiency HTN (hypertension) Asthma COPD (chronic obstructive pulmonary disease) Migraines Fibromyalgia Surgical History History of surgery Hx of laparoscopic gastric banding H/O: hysterectomy H/O dilation and curettage H/O removal of cyst Previous section Family History Other Breast cancer Cardiovascular disease Hypertension Lung cancer Osteoporosis Social History Smoking Status: Former smoker alcohol intake: never substance use type: denies use current occupational status: other Travel in the last 8 weeks?: None Have you lived/traveled outside US in past 30 days?: No Contact w/someone who lives/traveled outside US past 30 days?: No Exposure to someone with infectious disease in past 14 days?: No Do you have a fever (greater than 100.4 F or 38 C)?: No Have you tested positive for COVID-19?: No Exposed to someone with COVID-19 in past 14 days?: No Do you have a sore throat?: No Do you have a cough?: No Do you have any weakness?: No Do you have any diarrhea?: No Are you experiencing any unusual bleeding?: No Do you have any muscle aches/pain?: No Do you have any abdominal pain?: No Are you experiencing loss of taste or smell?: No Other Medical History Have you received the Flu Vaccine for this season: No Have you received the Pneumonia Vaccine: No Review of Systems Review of Systems Review of systems:: pertinent systems reviewed and negative unless documented below Review of systems (narrative): Review of Systems: General: No recent weight changes, no fever, no sleep disturbances Respiratory: No cough, no shortness of air, no recurring pulmonary infections Cardiovascular/peripheral vascular: No chest pain, no palpitations, no edema, no shortness of breath Gastrointestinal: No new onset incontinence, normal bowel movements reported Genitourinary: No new onset incontinence Musculoskeletal: Back pain Psychiatric: [Normal mood/affect] Neurological: [Denies weakness in extremities], [denies balance issues] Meds Home Medications and Allergies Home Medications ?Medication ?Instructions ?Recorded ?Confirmed ?Type amitriptyline 10 mg tablet 10 mg PO DAILY 10/26/17 01/18/25 History cyclobenzaprine 5 mg tablet 5 mg PO BID 10/26/17 01/18/25 History docusate sodium 100 mg capsule 100 mg PO QHS 10/26/17 01/18/25 History (Colace) hydrochlorothiazide 12.5 mg capsule 12.5 mg PO QAM 10/26/17 01/18/25 History naproxen 500 mg tablet 500 mg PO Q12H PRN Pain 10/26/17 01/18/25 History ranitidine HCl 150 mg tablet 150 mg PO BID PRN GERD 10/26/17 01/18/25 History (Zantac) sumatriptan succinate 50 mg tablet 50 mg PO Q2H PRN MIGRAINES 10/26/17 01/18/25 History (Imitrex) amitriptyline 50 mg tablet 50 mg PO DAILY 10/12/24 01/18/25 History cholecalciferol (vitamin D3) 50 50 mcg PO DAILY 10/12/24 01/18/25 History mcg (2,000 unit) capsule (Vitamin D3) cyclobenzaprine 5 mg tablet 5 mg PO HS 10/12/24 01/18/25 History escitalopram oxalate 5 mg tablet 5 mg PO DAILY 10/12/24 01/18/25 History galcanezumab-gnlm 120 mg/mL 120 mg SQ MONTHLY 10/12/24 01/18/25 History subcutaneous pen injector (Emgality Pen) hydroxyzine HCl 25 mg tablet 25 mg PO HS 10/12/24 01/18/25 History levocetirizine 5 mg tablet 5 mg PO DAILY 10/12/24 01/18/25 History losartan 50 mg tablet 50 mg PO DAILY 10/12/24 01/18/25 History montelukast 10 mg tablet 10 mg PO DAILY 10/12/24 01/18/25 History omeprazole 40 mg capsule,delayed 40 mg PO DAILY 10/12/24 01/18/25 History release phentermine 37.5 mg tablet 37.5 mg PO DAILY 10/12/24 01/18/25 History sulfamethoxazole 800 1 tab PO BID #14 tabs 10/19/24 01/18/25 Rx mg-trimethoprim 160 mg tablet (Bactrim DS) New Prescriptions to Start Prescriptions: Allergies Allergy/AdvReac Type Severity Reaction Status Date / Time No Known Allergies Allergy Verified 10/19/24 07:17 Exam Data for Last 24 hours Vital signs and Labs for Last 24 Hours: Pulse Resp BP Pulse Ox O2 Del Method 83 16 139/75 99 Room Air 01/18/25 09:29 01/18/25 09:29 01/18/25 09:29 01/18/25 09:29 01/18/25 09:29 I & O for Last 24 hours: Intake & Output 01/15/25 01/16/25 01/17/25 01/18/25 23:59 23:59 23:59 23:59 Weight 220 lb *Routine HEENT Exam Head: Present normocephalic and atraumatic Eye: Present PERRL ENT: Present mucous membranes moist *Routine Neck Exam Neck: Present supple *Routine Respiratory Exam Respiratory: Present CTA bilaterally *Routine Cardiovascular Exam Cardiovascular: Present RRR *Routine Abdominal Exam Abdominal: Present soft *Routine Rectal Exam Rectal:: deferred *Routine Genitalia Exam Genitalia:: deferred Routine Back/Spine/Pelvis Exam Back/Spine: Present pain with flexion *Routine Skin Exam Skin: Present intact and warm *Routine Neurological Exam Neurological: Present alert and oriented X3 Routine Psychiatric Exam Psychiatric: Present normal affect and normal thought process Assessment and Plan *Assessment and plan (1) Degenerative disc disease, lumbar: Status: Acute Category: Medical Code(s): M51.369 - Other intervertebral disc degeneration, lumbar region without mention of lumbar back pain or lower extremity pain (2) Bilateral hip pain: Status: Acute Category: Medical Code(s): M25.551 - Pain in right hip; M25.552 - Pain in left hip (3) Bilateral sacroiliitis: Status: Acute Category: Medical Code(s): M46.1 - Sacroiliitis, not elsewhere classified Plan Patient has been instructed to contact the clinic with any concerns before the next appointment. Dr. Robertson has reviewed this note and agrees with this plan of care. This note was dictated using voice recognition software and make contain errors or omissions. All injections are used with Lidocaine, Bupivacaine and dexamethasone. Occasionally urine drug screen is needed to verify patient's compliance with our office pain contract. This is ordered based off specific treatments related to chronic pain with the potential to abuse certain medications.
--- NOTE | 2025-01-18 09:49 | EXP.PAIN.PRO ---
Procedure Date: 01/18/25 Time: 10:10 Anesthesiologist:: Kitty Franks APRN Complications:: None Pre-procedure Diagnosis:: Degenerative disc disease of lumbar spine, chronic pain syndrome Post-procedure Diagnosis:: Same Indications for Procedure:: Patient is a pleasant 44-year-old female who presents today for intrathecal refill and reprogram. Today she rates her pain an 8 out of 10. Patient denies any recent falls. She does state that she has been having a little bit more increased pain but it is all over in multiple joints including her knees, hip, wrist. Patient is unsure if she is just been overdoing it. Patient is currently managed with morphine 1 mg/mL with a daily dose of 0.1515 mg/day. She denies any side effects. Her Gabriel has been reviewed and is appropriate. Physical Exam: General: Alert and oriented x3, no acute distress, pleasant and cooperative Lungs: Respirations even and unlabored, symmetrical chest expansion Eyes: PERRL Musculoskeletal: Flexion and extension of lumbar [spine] somewhat guarded secondary to pain, [antalgic gait noted] Neurological: Speech clear, no gross sensory deficit Procedure Details:: Informed consent was obtained and the risk and benefits of the procedure were explained to the patient. The patient had noninvasive monitoring placed including noninvasive blood pressure cuff and pulse oximeter. Patient's pump was interrogated. The area over the pump was cleansed with chlorhexidine as a cleansing solution. In sterile fashion the pump was accessed with a 22-gauge needle. Approximately 7 mls of the pump solution was removed and discarded appropriately. The pump was then refilled with 20 mL's of morphine 1 mg/mL. The needle was withdrawn and a bandage was placed over the puncture site. The infusion rate was reprogrammed and increased 10% to morphine 0.1667 mg/day. The patient tolerated well with no complication. Plan and Disposition:: Patient tolerated the procedure well with no complications and was discharged neurologically intact. Patient will return to clinic on or before their next intrathecal refill date. We will see the patient back in the clinic at the next intrathecal refill. Patient has been instructed to contact the clinic with any concerns before the next appointment. Dr. Robertson has reviewed this note and agrees with this plan of care. This note was dictated using voice recognition software and make contain errors or omissions. -- It Is medically necessary for this patient to continue to have their intrathecal pump refilled at regular intervals. This patient had an intrathecal pain pump implanted after meeting criteria of chronic intractable pain for greater than 3 months and failing conservative treatments. Patient has committed and been compliant to the treatment plan and all planned follow up care. Since implantation of the intrathecal pain pump, the patient has had decreased pain and been more functional. Oral medications have been reduced including intake of oral opioids. Patient continues to do well with intrathecal therapy with decrease in pain symptoms and increase in functional status. Stopping intrathecal medications can lead to life threatening withdrawal, seizures, cardiac arrest, severe pain, and possible . Pumps that are not refilled at regular intervals can be damages and cause and need for replacement. We continually titrate dose and concentration to optimize pain relief and function. We are limited in concentration for certain drugs to safely deliver medications through the pump and stay within the recommendations from the Polyanalgesic Consensus Committee Guidelines. Depending on dose and concentration these pumps may need to be refilled sooner than 3 months as we titrate. A UDS is needed to verify patient's compliance with our office pain contract. This is ordered based off specific treatments related to chronic pain with the potential to abuse certain medications.
[2025-01-18 10:04] VITALS: BP 129/68; PULSE 87; RESP 18; O2SAT 100
[2025-01-18 10:15] VITALS: BP 132/89; PULSE 82; RESP 16; O2SAT 99
== END 2025-01-18 10:15 | disposition home or self-care (01) ==
PROVIDERS: Visit Provider Nurse Practitioner Family
DX: Z45.1 Encounter for adjustment and management of infusion pump (principal); M51.369 Other intervertebral disc degeneration, lumbar region without mention of lumbar back pain or lower extremity pain; G89.4 Chronic pain syndrome; M46.1 Sacroiliitis, not elsewhere classified; I10 Essential (primary) hypertension; J44.9 Chronic obstructive pulmonary disease, unspecified; M32.9 Systemic lupus erythematosus, unspecified; Z98.84 Bariatric surgery status; Z87.891 Personal history of nicotine dependence; Z79.2 Long term (current) use of antibiotics; Z79.899 Other long term (current) drug therapy
CPT/HCPCS: 62370

== ENCOUNTER 2025-03-22 08:39 | Day surgery (SDC) | payer OTHER, SELFPAY ==
[2025-03-22 08:57] VITALS: BP 149/69; PULSE 79; RESP 18; O2SAT 99; BMI 38.0
--- NOTE | 2025-03-22 09:06 | EXP.PM.HP ---
History of Present Illness *Admission Date: 03/22/25 *Reason for visit:: Intrathecal refill; DDD *History of present illness: Same [facility] Disclaimer: The information contained in this section may have been updated after the patient was seen, as this information can be updated by other users. Medical History Lupus Encounter for adjustment of gastric lap band Depression Anxiety HLD (hyperlipidemia) Chronic urinary tract infection Iron deficiency HTN (hypertension) Asthma COPD (chronic obstructive pulmonary disease) Migraines Fibromyalgia Surgical History History of surgery Hx of laparoscopic gastric banding H/O: hysterectomy H/O dilation and curettage H/O removal of cyst Previous section Family History Other Breast cancer Cardiovascular disease Hypertension Lung cancer Osteoporosis Social History Smoking Status: Former smoker alcohol intake: never substance use type: denies use current occupational status: other Travel in the last 8 weeks?: None Have you lived/traveled outside US in past 30 days?: No Contact w/someone who lives/traveled outside US past 30 days?: No Exposure to someone with infectious disease in past 14 days?: No Do you have a fever (greater than 100.4 F or 38 C)?: No Have you tested positive for COVID-19?: No Exposed to someone with COVID-19 in past 14 days?: No Do you have a sore throat?: No Do you have a cough?: No Do you have any weakness?: No Do you have any diarrhea?: No Are you experiencing any unusual bleeding?: No Do you have any muscle aches/pain?: No Do you have any abdominal pain?: No Are you experiencing loss of taste or smell?: No Other Medical History Have you received the Flu Vaccine for this season: No Have you received the Pneumonia Vaccine: No Review of Systems Review of Systems Review of systems:: pertinent systems reviewed and negative unless documented below Review of systems (narrative): Review of Systems: General: No recent weight changes, no fever, no sleep disturbances Respiratory: No cough, no shortness of air, no recurring pulmonary infections Cardiovascular/peripheral vascular: No chest pain, no palpitations, no edema, no shortness of breath Gastrointestinal: No new onset incontinence, normal bowel movements reported Genitourinary: No new onset incontinence Musculoskeletal: Chronic back pain Psychiatric: [Normal mood/affect] Neurological: [Denies weakness in extremities], [denies balance issues] Meds Home Medications and Allergies Home Medications ?Medication ?Instructions ?Recorded ?Confirmed ?Type amitriptyline 10 mg tablet 10 mg PO DAILY 10/26/17 03/22/25 History cyclobenzaprine 5 mg tablet 5 mg PO BID 10/26/17 03/22/25 History docusate sodium 100 mg capsule 100 mg PO QHS 10/26/17 03/22/25 History (Colace) hydrochlorothiazide 12.5 mg capsule 12.5 mg PO QAM 10/26/17 03/22/25 History naproxen 500 mg tablet 500 mg PO Q12H PRN Pain 10/26/17 03/22/25 History ranitidine HCl 150 mg tablet 150 mg PO BID PRN GERD 10/26/17 03/22/25 History (Zantac) sumatriptan succinate 50 mg tablet 50 mg PO Q2H PRN MIGRAINES 10/26/17 03/22/25 History (Imitrex) amitriptyline 50 mg tablet 50 mg PO DAILY 10/12/24 03/22/25 History cholecalciferol (vitamin D3) 50 50 mcg PO DAILY 10/12/24 03/22/25 History mcg (2,000 unit) capsule (Vitamin D3) cyclobenzaprine 5 mg tablet 5 mg PO HS 10/12/24 03/22/25 History escitalopram oxalate 5 mg tablet 5 mg PO DAILY 10/12/24 03/22/25 History galcanezumab-gnlm 120 mg/mL 120 mg SQ MONTHLY 10/12/24 03/22/25 History subcutaneous pen injector (Emgality Pen) hydroxyzine HCl 25 mg tablet 25 mg PO HS 10/12/24 03/22/25 History levocetirizine 5 mg tablet 5 mg PO DAILY 10/12/24 03/22/25 History losartan 50 mg tablet 50 mg PO DAILY 10/12/24 03/22/25 History montelukast 10 mg tablet 10 mg PO DAILY 10/12/24 03/22/25 History omeprazole 40 mg capsule,delayed 40 mg PO DAILY 10/12/24 03/22/25 History release phentermine 37.5 mg tablet 37.5 mg PO DAILY 10/12/24 03/22/25 History sulfamethoxazole 800 1 tab PO BID #14 tabs 10/19/24 03/22/25 Rx mg-trimethoprim 160 mg tablet (Bactrim DS) New Prescriptions to Start Prescriptions: Allergies Allergy/AdvReac Type Severity Reaction Status Date / Time No Known Allergies Allergy Verified 10/19/24 07:17 Exam Data for Last 24 hours Vital signs and Labs for Last 24 Hours: Pulse Resp BP Pulse Ox O2 Del Method 79 18 149/69 H 99 Room Air 03/22/25 08:57 03/22/25 08:57 03/22/25 08:57 03/22/25 08:57 03/22/25 08:57 I & O for Last 24 hours: Intake & Output 03/19/25 03/20/25 03/21/25 03/22/25 23:59 23:59 23:59 23:59 Weight 215 lb Constitutional Constitutional: no acute distress *Routine HEENT Exam Head: Present normocephalic and atraumatic Eye: Present PERRL ENT: Present mucous membranes moist *Routine Neck Exam Neck: Present supple *Routine Respiratory Exam Respiratory: Present CTA bilaterally *Routine Cardiovascular Exam Cardiovascular: Present RRR *Routine Abdominal Exam Abdominal: Present soft *Routine Rectal Exam Rectal:: deferred *Routine Genitalia Exam Genitalia:: deferred Routine Back/Spine/Pelvis Exam Back/Spine: Present pain with flexion *Routine Skin Exam Skin: Present intact and warm *Routine Neurological Exam Neurological: Present alert and oriented X3 Routine Psychiatric Exam Psychiatric: Present normal affect and normal thought process Assessment and Plan *Assessment and plan (1) Chronic pain syndrome: Status: Acute Category: Medical Code(s): G89.4 - Chronic pain syndrome
--- NOTE | 2025-03-22 09:08 | EXP.PAIN.PRO ---
Procedure Date: 03/22/25 Time: 09:15 Anesthesiologist:: Kitty Franks APRN Complications:: None Pre-procedure Diagnosis:: Degenerative disc disease of lumbar spine, chronic pain syndrome Post-procedure Diagnosis:: Same Indications for Procedure:: Patient is a pleasant 44-year-old female who presents today for intrathecal refill and reprogram. She rates her pain today a 3 out of 10. She denies any new falls or injuries. She does feel like the last increase did seem to help however she also feels like she may be doing more and so still notices more with increased activity. She is currently managed with morphine 1 mg/mL with a daily dose of 0.1667 mg/day. She denies any side effects. Her Gabriel has been reviewed and is appropriate. Physical Exam: General: Alert and oriented x3, no acute distress, pleasant and cooperative Lungs: Respirations even and unlabored, symmetrical chest expansion Eyes: PERRL Musculoskeletal: Flexion and extension of lumbar [spine] somewhat guarded secondary to pain, [antalgic gait noted] Neurological: Speech clear, no gross sensory deficit Procedure Details:: Informed consent was obtained and the risk and benefits of the procedure were explained to the patient. The patient had noninvasive monitoring placed including noninvasive blood pressure cuff and pulse oximeter. Patient's pump was interrogated. The area over the pump was cleansed with chlorhexidine as a cleansing solution. In sterile fashion the pump was accessed with a 22-gauge needle. Approximately 6.8 mls of the pump solution was removed and discarded appropriately. The pump was then refilled with 20 mL's of morphine 1 mg/mL. The needle was withdrawn and a bandage was placed over the puncture site. The infusion rate was reprogrammed and increased 10% to 0.1833 mg/day. The patient tolerated well with no complication. Plan and Disposition:: Patient tolerated the procedure well with no complications and was discharged neurologically intact. Patient will return to clinic on or before their next intrathecal refill date. We will see the patient back in the clinic at the next intrathecal refill. Patient has been instructed to contact the clinic with any concerns before the next appointment. Dr. Robertson has reviewed this note and agrees with this plan of care. This note was dictated using voice recognition software and make contain errors or omissions. -- It Is medically necessary for this patient to continue to have their intrathecal pump refilled at regular intervals. This patient had an intrathecal pain pump implanted after meeting criteria of chronic intractable pain for greater than 3 months and failing conservative treatments. Patient has committed and been compliant to the treatment plan and all planned follow up care. Since implantation of the intrathecal pain pump, the patient has had decreased pain and been more functional. Oral medications have been reduced including intake of oral opioids. Patient continues to do well with intrathecal therapy with decrease in pain symptoms and increase in functional status. Stopping intrathecal medications can lead to life threatening withdrawal, seizures, cardiac arrest, severe pain, and possible . Pumps that are not refilled at regular intervals can be damages and cause and need for replacement. We continually titrate dose and concentration to optimize pain relief and function. We are limited in concentration for certain drugs to safely deliver medications through the pump and stay within the recommendations from the [employer]ensus [employer] Guidelines. Depending on dose and concentration these pumps may need to be refilled sooner than 3 months as we titrate. A UDS is needed to verify patient's compliance with our office pain contract. This is ordered based off specific treatments related to chronic pain with the potential to abuse certain medications.
[2025-03-22 09:11] VITALS: BP 128/80; PULSE 88; RESP 18; O2SAT 98
[2025-03-22 09:21] VITALS: BP 130/86; PULSE 73; RESP 16; O2SAT 98
== END 2025-03-22 09:21 | disposition home or self-care (01) ==
PROVIDERS: PCP Family Medicine; Visit Provider Nurse Practitioner Family
DX: Z45.1 Encounter for adjustment and management of infusion pump (principal); M51.369 Other intervertebral disc degeneration, lumbar region without mention of lumbar back pain or lower extremity pain; G89.4 Chronic pain syndrome; M32.9 Systemic lupus erythematosus, unspecified; E78.5 Hyperlipidemia, unspecified; I10 Essential (primary) hypertension; J44.89 Other specified chronic obstructive pulmonary disease; Z87.440 Personal history of urinary (tract) infections; E61.1 Iron deficiency; F41.9 Anxiety disorder, unspecified; F32.A Depression, unspecified; M79.7 Fibromyalgia; G43.909 Migraine, unspecified, not intractable, without status migrainosus; Z87.891 Personal history of nicotine dependence; Z79.899 Other long term (current) drug therapy
CPT/HCPCS: 62370

== ENCOUNTER 2025-07-16 09:56 | Day surgery (SDC) | payer OTHER, SELFPAY ==
[2025-07-16 10:08] VITALS: BP 136/96; PULSE 88; RESP 16; O2SAT 99; BMI 36.1
[2025-07-16] MEDS: LIDOCAINE 1% 5ML PF VIAL 5 ML (10:14)
[2025-07-16 10:15] VITALS: BP 144/85; PULSE 86; RESP 18; O2SAT 99
[2025-07-16] MEDS: DEXAMETHASONE 10MG/ML 1ML VIAL 10 MG (10:15)
[2025-07-16] MEDS: BUPIVACAINE 0.25% 10ML INJ 25 MG IJ (10:15)
[2025-07-16 10:18] VITALS: BP 144/85; PULSE 86; RESP 18; O2SAT 99
--- NOTE | 2025-07-16 10:23 | EXP.PAIN.PRO ---
Procedure Date: 07/16/25 Time: 10:10 Anesthesiologist:: Liam Stubbs CRNA Complications:: None Pre-procedure Diagnosis:: DJD bilateral hip. Chronic bilateral hip pain. Post-procedure Diagnosis:: Same. Indications for Procedure:: Patient is a very pleasant 44-year-old female who comes our clinic today for bilateral intra-articular hip injections. She describes bilateral hip pain as constant, dull, aching. She reports a clicking sound in the left hip on the daily. She has difficulty with ambulation due to the bilateral hip pain. She rates her pain 7/10. Procedure Details:: Details of the procedure were explained to the patient. The patient was taken to procedure room placed in the supine position. The area over the bilateral hip was cleaned using chlorhexidine as a cleansing solution. Using fluoroscopy guidance a 3 and half inch 22-gauge spinal needle was used to access the bilateral hip joint without difficulty. After negative aspiration 3 cc of 1% lidocaine +3 cc of 0.25% Marcaine and 10 mg of dexamethasone was injected. Needle was withdrawn. Band-Aid applied. Patient tolerated procedure without difficulty. There are no complications. Plan and Disposition:: Patient was discharged without incident.
[2025-07-16 10:26] VITALS: BP 160/92; PULSE 92; RESP 16; O2SAT 94
== END 2025-07-16 10:26 | disposition home or self-care (01) ==
PROVIDERS: PCP Nurse Practitioner Family; Visit Provider Nurse Anesthetist, Certified Registered
DX: M16.0 Bilateral primary osteoarthritis of hip (principal); F41.9 Anxiety disorder, unspecified; N39.0 Urinary tract infection, site not specified; J44.9 Chronic obstructive pulmonary disease, unspecified; M79.7 Fibromyalgia; E78.5 Hyperlipidemia, unspecified; I10 Essential (primary) hypertension; G43.909 Migraine, unspecified, not intractable, without status migrainosus; M32.9 Systemic lupus erythematosus, unspecified; Z90.710 Acquired absence of both cervix and uterus; Z98.84 Bariatric surgery status; Z82.49 Family history of ischemic heart disease and other diseases of the circulatory system; Z87.891 Personal history of nicotine dependence; Z79.899 Other long term (current) drug therapy
CPT/HCPCS: 20610; 77002; J0665; J1100; J2003